=== PATIENT | male | born 1985 | race Two or more races ===

== ENCOUNTER 2016-08-14 20:14 | Emergency (ER) | payer MEDICAID ==
[~2016-08-14] VITALS: Ht 182.9 cm; Wt 79.4 kg
[~2016-08-14 20:14] MED LIST: ALBUAER3 IN; ALEN70TA2 PO; BUDE80AE3 IN; DIPH25CA39 IM; ENO40SY SC; FLUT500M2 IN; FURO20TA3 PO; HYDR200T PO; HYDR2TAB27 PO; IPRA0.035; LIS5T PO; METO25TA5 PO; THEO300T9 PO; TIOTCAP; WARF7.5T PO
[2016-08-14 20:43] VITALS: BP 130/89
== END 2016-08-15 01:13 | disposition left against medical advice (07) ==
LOC: ER 20:22
DX: R06.02 Shortness of breath (principal); Z53.21 Procedure and treatment not carried out due to patient leaving prior to being seen by health care provider

== ENCOUNTER 2016-08-15 07:05 | Emergency (ER) | payer MEDICAID ==
[~2016-08-15] VITALS: Ht 182.9 cm; Wt 79.4 kg
[2016-08-15 07:19] VITALS: BP 101/77
[2016-08-15 08:19] LABS: Magnesium 2.4 mg/dL (1.6-2.6)
[2016-08-15 08:20] LABS: Basophils # (auto) 0 uL; Basophils % (auto) 0.3 % (0.0-2.0); DEFINITIVE VIEW TRANSMISSION; Eosinophils # (auto) 0.3 uL; Eosinophils % (auto) 3.5 % (0.0-7.0); Hematocrit 42.1 % (41.0-53.0); Lymphocytes # (auto) 1.3 uL; Lymphocytes % (auto) 13.7 % (10.0-50.0); Mean Corpuscular Hemoglobin 18.5 pg (28.0-32.0); Mean Corpuscular Hgb Conc. 30.8 g/dL (32.0-36.0); Mean Platelet Volume 9.5 fL (7.4-10.4); Monocytes # (auto) 0.9 uL; Monocytes % (auto) 9.3 % (0.0-12.0); Neutrophils % (auto) 73.2 % (37.0-80.0); Platelet Count (auto) 208 10^3/uL (140-450); SUSPECT VIEW TRANSMISSION; White Blood Cell 9.6 10^3/uL (4.4-10.8)
[2016-08-15 09:57] LABS: Microcytosis Marked; Ovalocytes MODERATE
[2016-08-15 11:55] LABS: Tear Drop Cells FEW
[2016-08-15 11:56] LABS: Hypochromia Moderate; Platelet Estimate Adequate; Schistocytes FEW
[2016-08-15 11:57] LABS: Anisocytosis Moderate
== END 2016-08-15 15:27 | disposition left against medical advice (07) ==
LOC: ER 07:05
DX: R06.02 Shortness of breath (principal); R31.9 Hematuria, unspecified; Z53.21 Procedure and treatment not carried out due to patient leaving prior to being seen by health care provider
CPT/HCPCS: 36415; 83735; 84484; 85025

== ENCOUNTER → 2016-08-25 | Emergency (ER) | payer MEDICAID ==
[~2016-08-25] MED LIST changes: -ENO40SY SC; -IPRA0.035; -LIS5T PO; +THEO300T5 PO; -THEO300T9 PO; -TIOTCAP; +ZOLP10TA PO
== END | disposition left against medical advice (07) ==
LOC: ER 23:57
DX: R31.9 Hematuria, unspecified (principal); Z53.21 Procedure and treatment not carried out due to patient leaving prior to being seen by health care provider

== ENCOUNTER 2016-08-28 12:42 | Emergency (ER) | payer MEDICAID ==
[~2016-08-28] VITALS: Ht 182.9 cm; Wt 81.6 kg
[~2016-08-28 12:42] MED LIST changes: -THEO300T5 PO; -ZOLP10TA PO
[2016-08-28 13:54] LABS: Albumin 3.9 g/dL (3.4-5.0); Bilirubin, Total 0.6 mg/dL (0.2-1.0); Potassium 4.4 mmol/L (3.5-5.1); Total Protein 7.2 g/dL (6.4-8.2)
[2016-08-28 13:57] LABS: Basophils # (auto) 0 uL; Basophils % (auto) 0.5 % (0.0-2.0); DEFINITIVE VIEW TRANSMISSION; Eosinophils # (auto) 0.1 uL; Eosinophils % (auto) 1.8 % (0.0-7.0); Hematocrit 41.4 % (41.0-53.0); Lymphocytes # (auto) 0.7 uL; Lymphocytes % (auto) 9.9 % (10.0-50.0); Mean Corpuscular Hemoglobin 18.7 pg (28.0-32.0); Mean Corpuscular Hgb Conc. 31.5 g/dL (32.0-36.0); Mean Corpuscular Volume 59.4 fL (80.0-100.0); Mean Platelet Volume 9.1 fL (7.4-10.4); Monocytes # (auto) 0.3 uL; Monocytes % (auto) 3.4 % (0.0-12.0); Neutrophils # (auto) 6.2 uL; Neutrophils % (auto) 84.4 % (37.0-80.0); Platelet Count (auto) 172 10^3/uL (140-450); SUSPECT VIEW TRANSMISSION; White Blood Cell 7.3 10^3/uL (4.4-10.8)
[2016-08-28 13:58] LABS: Red Cell Distribution Width 20.7 % (11.6-16.0)
[2016-08-28 14:18] LABS: Urine Bilirubin Negative (Negative); Urine Blood 3+ /uL (Negative); Urine Color Red (Yellow); Urine Glucose Normal (Normal); Urine Ketone Negative (Negative); Urine Mucus FEW (None Seen); Urine Nitrite Negative (Negative); Urine RBC 3472 /hpf (0 - 3); Urine Urobilinogen Normal (Negative)
[2016-08-28 14:25] LABS: Microcytosis Marked
[2016-08-28 14:26] LABS: Ovalocytes MODERATE
[2016-08-28 14:27] LABS: Tear Drop Cells FEW
[2016-08-28 14:28] LABS: Anisocytosis Moderate
[2016-08-28 14:30] LABS: Hypochromia Moderate; Platelet Estimate Adequate
[2016-08-28 15:47] VITALS: BP 121/91
[2016-08-28] MEDS ORDERED: ALBUTEROL SULF 2.5 MG/0.5ML(0.5%) NEB SOLN HHN STA (16:44)
[2016-08-28] MEDS ORDERED: IPRATROPIUM BROM 0.5 MG/2.5ML INH SOL NEB PRN (16:45)
[2016-08-30] MEDS ORDERED: THEO300T5 PO (13:55)
[2016-08-30] MEDS ORDERED: ZOLP10TA PO (13:55)
== END 2016-08-28 17:35 | disposition home or self-care (01) ==
LOC: ER 12:42
DX: N20.0 Calculus of kidney (principal); N39.0 Urinary tract infection, site not specified; M32.9 Systemic lupus erythematosus, unspecified; J45.909 Unspecified asthma, uncomplicated; F12.10 Cannabis abuse, uncomplicated; J44.9 Chronic obstructive pulmonary disease, unspecified; E11.22 Type 2 diabetes mellitus with diabetic chronic kidney disease; K21.9 Gastro-esophageal reflux disease without esophagitis; I13.0 Hypertensive heart and chronic kidney disease with heart failure and stage 1 through stage 4 chronic kidney disease, or unspecified chronic kidney disease; I50.9 Heart failure, unspecified; N18.9 Chronic kidney disease, unspecified; E07.9 Disorder of thyroid, unspecified; Z95.1 Presence of aortocoronary bypass graft; Z87.891 Personal history of nicotine dependence
CPT/HCPCS: 36415; 71020; 74176; 80053; 81001; 85025; 94640

== ENCOUNTER 2016-09-10 16:46 | Emergency (ER) | payer MEDICAID ==
[~2016-09-10] VITALS: Ht 182.9 cm; Wt 77.1 kg
[~2016-09-10 16:46] MED LIST changes: +ALBU0.084; +HYDR200T36; +HYDR2TAB2; +LORA-154; +Prednisone PO; +THEO300T5 PO; +ZOLP10TA PO
[2016-09-10 17:10] VITALS: BP 137/99
[2016-09-10] MEDS ORDERED: ALBUTEROL SULF 2.5 MG/0.5ML(0.5%) NEB SOLN HHN STA (17:10)
[2016-09-10] MEDS ORDERED: IPRATROPIUM BROM 0.5 MG/2.5ML INH SOL NEB ONE (17:15)
[2016-09-10] MEDS ORDERED: methylPREDNISolone SOD SUCC 125 MG/2 ML VL IV ONE (17:15)
[2016-09-10 17:35] LABS: Basophils # (auto) 0 uL; Basophils % (auto) 0.2 % (0.0-2.0); DEFINITIVE VIEW TRANSMISSION; Eosinophils # (auto) 0.3 uL; Eosinophils % (auto) 2.1 % (0.0-7.0); Hematocrit 42.8 % (41.0-53.0); Hemoglobin 12.9 g/dL (13.5-17.5); Lymphocytes # (auto) 1.1 uL; Lymphocytes % (auto) 8.4 % (10.0-50.0); Mean Corpuscular Hgb Conc. 30.2 g/dL (32.0-36.0); Mean Corpuscular Volume 59.6 fL (80.0-100.0); Mean Platelet Volume 8.8 fL (7.4-10.4); Monocytes # (auto) 0.6 uL; Monocytes % (auto) 4.9 % (0.0-12.0); Neutrophils # (auto) 10.5 uL; Neutrophils % (auto) 84.4 % (37.0-80.0); Platelet Count (auto) 202 10^3/uL (140-450); White Blood Cell 12.5 10^3/uL (4.4-10.8)
[2016-09-10 18:03] LABS: Albumin 3.8 g/dL (3.4-5.0); Bilirubin, Total 0.4 mg/dL (0.2-1.0); Calcium 8.8 mg/dL (8.5-10.1); Potassium 4.5 mmol/L (3.5-5.1); Total Protein 7.2 g/dL (6.4-8.2)
[2016-09-10 19:11] LABS: Anisocytosis Marked; Hypochromia Marked; Microcytosis Marked; Platelet Estimate Adequate; Tear Drop Cells FEW
[2016-09-10 19:12] LABS: Burr Cells FEW; Hypersegmented Neutrophils Present; Ovalocytes FEW
== END 2016-09-10 20:05 | disposition left against medical advice (07) ==
LOC: ER 16:51
DX: J45.909 Unspecified asthma, uncomplicated (principal); Z53.21 Procedure and treatment not carried out due to patient leaving prior to being seen by health care provider
CPT/HCPCS: 36415; 71020; 80053; 85025; 94644

== ENCOUNTER 2016-10-13 19:16 | Emergency (ER) | payer MEDICAID ==
[~2016-10-13] VITALS: Ht 182.9 cm; Wt 81.6 kg
[2016-10-13 19:20] VITALS: BP 127/84
[2016-10-13] MEDS ORDERED: IPRATROPIUM BROM 0.5 MG/2.5ML INH SOL NEB ONE (19:45)
[2016-10-13] MEDS ORDERED: ALBUTEROL SULF 2.5 MG/0.5ML(0.5%) NEB SOLN NEB ONE (19:45)
== END 2016-10-13 23:28 | disposition left against medical advice (07) ==
LOC: ER 19:34
DX: J45.909 Unspecified asthma, uncomplicated (principal); Z53.21 Procedure and treatment not carried out due to patient leaving prior to being seen by health care provider
CPT/HCPCS: 71010; 94640

== ENCOUNTER 2017-04-04 10:18 | Inpatient (IN) | payer MEDICAID ==
[~2017-04-04] VITALS: Ht 182.9 cm; Wt 78.3 kg
[~2017-04-04 10:18] MED LIST changes: -HYDR2TAB27 PO; +HYDR2TAB29 PO
[2017-04-04] MEDS ORDERED: IPRATROPIUM BROM 0.5 MG/2.5ML INH SOL NEB ONE ×3 (10:30→15:45)
[2017-04-04] MEDS ORDERED: ALBUTEROL SULF 2.5 MG/0.5ML(0.5%) NEB SOLN NEB ONE ×3 (10:30→15:45)
[2017-04-04] MEDS ORDERED: SODIUM CHLORIDE 0.9% 1,000 ML IVB ONE (13:26)
[2017-04-04] MEDS ORDERED: MAGNESIUM SULFATE 1GM/100ML 100 ML IV ONE (14:15)
[2017-04-04 14:27] LABS: Basophils # (auto) 0.1 uL; Hemoglobin 12.7 g/dL (13.5-17.5); Lymphocytes # (auto) 1.1 uL; Neutrophils # (auto) 10.7 uL; White Blood Cell 13.5 10^3/uL (4.4-10.8)
[2017-04-04 14:28] LABS: Basophils % (auto) 0.5 % (0.0-2.0); Eosinophils # (auto) 0.7 uL; Eosinophils % (auto) 4.9 % (0.0-7.0); Hematocrit 40.3 % (41.0-53.0); Lymphocytes % (auto) 7.9 % (10.0-50.0); Mean Corpuscular Hgb Conc. 31.6 g/dL (32.0-36.0); Mean Platelet Volume 9.3 fL (6.9-10.8); Monocytes % (auto) 7.4 % (0.0-12.0); Neutrophils % (auto) 79.3 % (37.0-80.0); Platelet Count (auto) 242 10^3/uL (140-450)
[2017-04-04 14:29] LABS: Red Cell Distribution Width 21.2 % (11.8-14.3)
[2017-04-04] MEDS ORDERED: diphenhdrAMINE HCL 50 MG/1 ML VL IV ONE (14:30)
[2017-04-04 14:46] LABS: Albumin 4.1 g/dL (3.4-5.0); Anisocytosis Moderate; BUN/Creatinine Ratio 20.2; Bilirubin, Total 0.5 mg/dL (0.2-1.0); Calcium 8.5 mg/dL (8.5-10.1); Hypochromia Moderate; Magnesium 2.3 mg/dL (1.6-2.6); Microcytosis Moderate; Ovalocytes FEW; Platelet Estimate Adequate; Potassium 3.3 mmol/L (3.5-5.1); Tear Drop Cells FEW; Total Protein 7.1 g/dL (6.4-8.2)
[2017-04-04] MEDS ORDERED: POTASSIUM CHL 20 Meq TABLET PO ONE (16:15)
[2017-04-04] MEDS ORDERED: SODIUM CHLORIDE 0.9% 1,000 ML IV ONE (16:43)
[2017-04-04] MEDS ORDERED: DEXAMETHASONE SOD PHOS 4 MG/1ML SDV INJ IV ONE (16:45)
[2017-04-04] MEDS ORDERED: TEMAZEPAM 15 MG CAP PO PRN (21:15)
[2017-04-04] MEDS ORDERED: ACETAMINOPHEN 325 MG TAB PO PRN (21:15)
[2017-04-04] MEDS ORDERED: ONDANSETRON HCL 4 MG/2 ML VIAL IV PRN (21:15)
[2017-04-04] MEDS ORDERED: cefTRIAXone 1GM/50ML D5W 50 ML IV ONE (21:15)
[2017-04-04] MEDS ORDERED: NITROGLYCERIN 0.4 MG SL TAB SL PRN (21:15)
[2017-04-04] MEDS ORDERED: HYDROcodone-ACET 5/325MG TAB PO PRN (21:15)
[2017-04-04] MEDS ORDERED: MORPHINE SULFATE 10 MG/ML INJ 1ML SDV IV PRN (21:15)
[2017-04-04 22:00] VITALS: BP 120/75
[2017-04-04] MEDS: HYDROmorphone HCL 2 MG TAB PO PRN (22:59)
[2017-04-04 23:00] VITALS: BP 120/75
[2017-04-04] MEDS: METOPROLOL TARTRATE 25 MG TAB PO SCH (23:00)
[2017-04-04] MEDS: FAMOTIDINE 20 MG TAB PO SCH (23:00)
[2017-04-04] MEDS: methylPREDNISolone SOD SUCC 125 MG/2 ML VL IV SCH (23:01)
[2017-04-04] MEDS: SODIUM CHLORIDE 0.9% 1,000 ML IV SCH (23:02)
[2017-04-04 23:21] LABS: Partial Thromboplastin Time 25.2 sec (22.64-33.71); Prothrombin Time 10.9 sec (9.37-12.3)
[2017-04-05] MEDS: diphenhdrAMINE HCL 25 MG CAP PO PRN ×3 (03:05→19:32)
[2017-04-05 05:00] VITALS: BP 127/76
[2017-04-05] MEDS: HYDROmorphone HCL 2 MG TAB PO PRN ×5 (05:25→23:40)
[2017-04-05 06:18] LABS: Basophils # (auto) 0 uL; Eosinophils # (auto) 0 uL; Eosinophils % (auto) 0.4 % (0.0-7.0); Lymphocytes # (auto) 0.5 uL; Monocytes # (auto) 0.1 uL
[2017-04-05 06:20] LABS: Hematocrit 36.7 % (41.0-53.0); Hemoglobin 11.2 g/dL (13.5-17.5); Lymphocytes % (auto) 6.2 % (10.0-50.0); Mean Corpuscular Hemoglobin 18.6 pg (28.0-32.0); Mean Corpuscular Hgb Conc. 30.6 g/dL (32.0-36.0); Mean Corpuscular Volume 60.9 fL (80.0-100.0); Mean Platelet Volume 9.2 fL (6.9-10.8); Monocytes % (auto) 1.1 % (0.0-12.0); Neutrophils # (auto) 7.7 uL; Neutrophils % (auto) 92.3 % (37.0-80.0); Nucleated Red Blood Cells % 0.2 %; Platelet Count (auto) 218 10^3/uL (140-450); White Blood Cell 8.4 10^3/uL (4.4-10.8)
[2017-04-05 06:36] LABS: Potassium 4.5 mmol/L (3.5-5.1)
[2017-04-05 06:40] LABS: Red Cell Distribution Width 21.2 % (11.8-14.3)
[2017-04-05 06:41] LABS: Albumin 3.6 g/dL (3.4-5.0); BUN/Creatinine Ratio 18.3; Calcium 8.5 mg/dL (8.5-10.1)
[2017-04-05 06:43] LABS: Bilirubin, Total 0.4 mg/dL (0.2-1.0)
[2017-04-05 09:00] VITALS: BP 134/64
[2017-04-05] MEDS: methylPREDNISolone SOD SUCC 125 MG/2 ML VL IV SCH ×2 (09:36→21:07)
[2017-04-05] MEDS: ENOXAPARIN SOD 40 MG/0.4 ML SYRINGE SC SCH (09:36)
[2017-04-05] MEDS: METOPROLOL TARTRATE 25 MG TAB PO SCH ×2 (09:37→21:07)
[2017-04-05] MEDS: HYDROXYCHLOROQUINE SULFATE 200 MG TAB PO SCH (09:37)
[2017-04-05] MEDS: FUROSEMIDE 20 MG TAB PO SCH (09:37)
[2017-04-05] MEDS: FAMOTIDINE 20 MG TAB PO SCH ×2 (09:38→21:06)
[2017-04-05 11:47] LABS: Platelet Estimate Adequate
[2017-04-05 11:50] LABS: Anisocytosis Slight; Burr Cells FEW; Hypochromia Marked; Microcytosis Marked; Ovalocytes FEW; Schistocytes FEW; Tear Drop Cells FEW
[2017-04-05 13:00] VITALS: BP 132/78
[2017-04-05] MEDS: ALBUTEROL SULF 2.5 MG/0.5ML(0.5%) NEB SOLN NEB PRN (14:38)
[2017-04-05] MEDS: IPRATROPIUM BROM 0.5 MG/2.5ML INH SOL NEB PRN (14:38)
[2017-04-05 17:00] VITALS: BP 136/67
[2017-04-05] MEDS ORDERED: WARFARIN SODIUM 2.5 MG TAB PO ONE (17:00)
[2017-04-05] MEDS: SODIUM CHLORIDE 0.9% 1,000 ML IV SCH (17:01)
[2017-04-05] MEDS: cefTRIAXone 1GM/50ML D5W 50 ML IV SCH (21:06)
[2017-04-05 22:00] VITALS: BP 128/74
[2017-04-05] MEDS ORDERED: ZOLPIDEM TARTRATE 5 MG TAB PO ONE (23:00)
[2017-04-06] MEDS: HYDROmorphone HCL 2 MG TAB PO PRN ×6 (03:41→23:46)
[2017-04-06] MEDS: diphenhdrAMINE HCL 25 MG CAP PO PRN ×3 (03:41→22:02)
[2017-04-06] MEDS: SODIUM CHLORIDE 0.9% 1,000 ML IV SCH (04:50)
[2017-04-06 06:18] VITALS: BP 117/76
[2017-04-06] MEDS: IPRATROPIUM BROM 0.5 MG/2.5ML INH SOL NEB PRN ×2 (07:43→19:40)
[2017-04-06] MEDS: ALBUTEROL SULF 2.5 MG/0.5ML(0.5%) NEB SOLN NEB PRN (07:43)
[2017-04-06 08:07] LABS: INR 1.05 (0.9-1.15); Partial Thromboplastin Time 23.9 sec (22.64-33.71); Prothrombin Time 11.4 sec (9.37-12.3)
[2017-04-06 09:00] VITALS: BP 120/73
[2017-04-06] MEDS: METOPROLOL TARTRATE 25 MG TAB PO SCH (09:24)
[2017-04-06] MEDS: HYDROXYCHLOROQUINE SULFATE 200 MG TAB PO SCH (09:24)
[2017-04-06] MEDS: FAMOTIDINE 20 MG TAB PO SCH (09:25)
[2017-04-06] MEDS: FUROSEMIDE 20 MG TAB PO SCH (09:25)
[2017-04-06] MEDS: ENOXAPARIN SOD 40 MG/0.4 ML SYRINGE SC SCH (09:25)
[2017-04-06] MEDS: methylPREDNISolone SOD SUCC 125 MG/2 ML VL IV SCH ×2 (09:25→22:01)
[2017-04-06 10:14] LABS: Hematocrit 35.3 % (41.0-53.0); Mean Corpuscular Hemoglobin 18.9 pg (28.0-32.0); Mean Corpuscular Hgb Conc. 31.3 g/dL (32.0-36.0); Mean Corpuscular Volume 60.3 fL (80.0-100.0); Mean Platelet Volume 9.3 fL (6.9-10.8); Platelet Count (auto) 242 10^3/uL (140-450); White Blood Cell 17.8 10^3/uL (4.4-10.8)
[2017-04-06 10:15] LABS: Red Cell Distribution Width 21.5 % (11.8-14.3)
[2017-04-06 10:16] LABS: Metamyelocytes % 0; Myelocytes % 0; Promyelocytes % 0; Reactive Lymphocytes 0
[2017-04-06] MEDS: ALBUTEROL SULF 2.5 MG/0.5ML(0.5%) NEB SOLN NEB SCH ×2 (12:07→19:40)
[2017-04-06] MEDS: BUDESONIDE (INHALATION) 0.5 MG/2 ML NEB NEB SCH ×2 (12:08→19:40)
[2017-04-06 13:00] VITALS: BP 135/85
[2017-04-06 13:40] LABS: Burr Cells FEW; Platelet Estimate Adequate
[2017-04-06 13:41] LABS: Ovalocytes FEW; Tear Drop Cells FEW
[2017-04-06 13:44] LABS: Anisocytosis Slight; Hypochromia Marked; Microcytosis Marked
[2017-04-06 13:45] LABS: Schistocytes FEW
[2017-04-06 17:00] VITALS: BP 132/70
[2017-04-06] MEDS ORDERED: WARFARIN SODIUM 10 MG TAB PO ONE (17:00)
[2017-04-06] MEDS: PANTOPRAZOLE 40 MG TAB PO SCH (17:29)
[2017-04-06 21:46] VITALS: BP 120/71
[2017-04-06] MEDS: MYCOPHENOLATE 500 MG TAB PO SCH (22:00)
[2017-04-06] MEDS: cefTRIAXone 1GM/50ML D5W 50 ML IV SCH (22:00)
[2017-04-06] MEDS: CALCIUM CARB 500 MG CHEW TAB PO SCH (22:01)
[2017-04-07] MEDS ORDERED: ZOLPIDEM TARTRATE 5 MG TAB PO ONE (00:15)
[2017-04-07] MEDS: HYDROmorphone HCL 2 MG TAB PO PRN ×4 (03:46→16:54)
[2017-04-07 05:13] VITALS: BP 139/60
[2017-04-07] MEDS: ALBUTEROL SULF 2.5 MG/0.5ML(0.5%) NEB SOLN NEB SCH ×3 (06:59→13:24)
[2017-04-07] MEDS ORDERED: ALENDRONATE SODIUM 10 MG TAB PO SCH (08:00)
[2017-04-07] MEDS ORDERED: PNEUMOCOCCAL VACC POLYS 25 MCG/0.5 ML VIAL IM ONE (09:00)
[2017-04-07] MEDS ORDERED: INFLUENZA QUAD 2017-2018 0.5 ML SYRG IM ONE (09:00)
[2017-04-07] MEDS: IPRATROPIUM BROM 0.5 MG/2.5ML INH SOL NEB PRN (09:24)
[2017-04-07] MEDS: ALBUTEROL SULF 2.5 MG/0.5ML(0.5%) NEB SOLN NEB PRN (09:27)
[2017-04-07] MEDS: BUDESONIDE (INHALATION) 0.5 MG/2 ML NEB NEB SCH (09:27)
[2017-04-07 09:28] VITALS: BP 137/66
[2017-04-07 09:56] LABS: Basophils # (auto) 0 uL; Basophils % (auto) 0.1 % (0.0-2.0); Eosinophils # (auto) 0 uL; Eosinophils % (auto) 0.1 % (0.0-7.0); Hemoglobin 11.5 g/dL (13.5-17.5); Nucleated Red Blood Cells % 0.1 %
[2017-04-07 09:58] LABS: Lymphocytes # (auto) 0.9 uL; Lymphocytes % (auto) 6.8 % (10.0-50.0); Mean Corpuscular Hemoglobin 18.4 pg (28.0-32.0); Mean Corpuscular Hgb Conc. 30.9 g/dL (32.0-36.0); Mean Corpuscular Volume 59.5 fL (80.0-100.0); Monocytes # (auto) 1.1 uL; Neutrophils # (auto) 10.6 uL; Platelet Count (auto) 294 10^3/uL (140-450); White Blood Cell 12.6 10^3/uL (4.4-10.8)
[2017-04-07] MEDS ORDERED: CHOLECALCIFEROL (VITD3) 1,000 UNIT TAB PO SCH (10:00)
[2017-04-07 10:08] LABS: Red Cell Distribution Width 21.5 % (11.8-14.3)
[2017-04-07 10:12] LABS: Albumin 3.8 g/dL (3.4-5.0); Calcium 8.7 mg/dL (8.5-10.1); Potassium 3.9 mmol/L (3.5-5.1)
[2017-04-07 10:14] LABS: BUN/Creatinine Ratio 25.4; INR 1.17 (0.9-1.15); Prothrombin Time 12.8 sec (9.37-12.3)
[2017-04-07 10:18] LABS: Bilirubin, Total 0.5 mg/dL (0.2-1.0); Total Protein 6.4 g/dL (6.4-8.2)
[2017-04-07] MEDS: ENOXAPARIN SOD 40 MG/0.4 ML SYRINGE SC SCH (10:35)
[2017-04-07] MEDS: CALCIUM CARB 500 MG CHEW TAB PO SCH (10:36)
[2017-04-07] MEDS: PANTOPRAZOLE 40 MG TAB PO SCH (10:36)
[2017-04-07] MEDS: FUROSEMIDE 20 MG TAB PO SCH (10:36)
[2017-04-07] MEDS: methylPREDNISolone SOD SUCC 125 MG/2 ML VL IV SCH (10:36)
[2017-04-07] MEDS: HYDROXYCHLOROQUINE SULFATE 200 MG TAB PO SCH (10:37)
[2017-04-07] MEDS: MYCOPHENOLATE 500 MG TAB PO SCH (10:37)
[2017-04-07] MEDS: SODIUM CHLORIDE 0.9% 1,000 ML IV SCH (10:45)
[2017-04-07] MEDS: diphenhdrAMINE HCL 25 MG CAP PO PRN (10:46)
[2017-04-07 10:52] LABS: Platelet Estimate Adequate
[2017-04-07 10:54] LABS: Schistocytes FEW; Tear Drop Cells FEW
[2017-04-07 10:55] LABS: Anisocytosis Slight; Burr Cells FEW; Hypochromia Marked; Microcytosis Marked; Ovalocytes MODERATE
[2017-04-07 11:43] VITALS: BP 130/77
[2017-04-07 17:00] VITALS: BP 130/85
[2017-04-07] MEDS ORDERED: WARFARIN SODIUM 10 MG TAB PO ONE (17:00)
[2017-04-07 17:47] VITALS: BP 122/68
[2017-04-08 08:06] LABS: Thyroid Peroxidase (TPO) Ab 12 IU/mL (0-34)
[2017-04-08 16:07] LABS: Sjogren's Anti-SS-A Antibody <0.2 AI (0.0-0.9)
[2017-04-09 11:07] LABS: Antiproteinase 3 (PR-3) Ab <3.5 U/mL (0.0-3.5)
[2017-04-09 14:07] LABS: Anti-intermyofibrillar Ab Negative (Neg:<1:20); Anti-sarcolemma Antibody Negative (Neg:<1:20)
== END 2017-04-07 18:30 | disposition home or self-care (01) | DRG 133 ==
LOC: ER 10:18 → TELE 10:19 → TELE-WESTW 22:11
PROVIDERS: ADMIT Internal Medicine; ATTEND Internal Medicine Pulmonary Disease
DX: J96.20 Acute and chronic respiratory failure, unspecified whether with hypoxia or hypercapnia (principal); C95.90 Leukemia, unspecified not having achieved remission; E87.5 Hyperkalemia; J45.901 Unspecified asthma with (acute) exacerbation; J44.9 Chronic obstructive pulmonary disease, unspecified; K21.9 Gastro-esophageal reflux disease without esophagitis; F17.210 Nicotine dependence, cigarettes, uncomplicated; E87.6 Hypokalemia; F12.90 Cannabis use, unspecified, uncomplicated; F32.9 Major depressive disorder, single episode, unspecified; F41.9 Anxiety disorder, unspecified; T38.0X5A Adverse effect of glucocorticoids and synthetic analogues, initial encounter; M81.0 Age-related osteoporosis without current pathological fracture; I10 Essential (primary) hypertension; I25.10 Atherosclerotic heart disease of native coronary artery without angina pectoris; Z86.711 Personal history of pulmonary embolism; Z79.01 Long term (current) use of anticoagulants; Z87.01 Personal history of pneumonia (recurrent); Y92.89 Other specified places as the place of occurrence of the external cause; Z79.52 Long term (current) use of systemic steroids; Z82.49 Family history of ischemic heart disease and other diseases of the circulatory system; Z82.5 Family history of asthma and other chronic lower respiratory diseases; Z83.3 Family history of diabetes mellitus; Z95.5 Presence of coronary angioplasty implant and graft; Z88.6 Allergy status to analgesic agent; Z88.1 Allergy status to other antibiotic agents
CPT/HCPCS: 36415; 71020; 80053; 83520; 83735; 84443; 85007; 85025; 85027; 85610; 85730; 86160; 86225; 86235; 86256; 87040; 87081; 93005; 94010; 94640; 96361; 96365; 96375; J0696; J1100; J7517

== ENCOUNTER 2017-04-23 09:40 | Emergency (ER) | payer MEDICAID ==
[~2017-04-23] VITALS: Ht 182.9 cm; Wt 79.8 kg
[~2017-04-23 09:40] MED LIST changes: +CETI1TAB36 PO; -FLUT500M2 IN; -HYDR200T36; -HYDR2TAB2; -LORA-154; -METO25TA5 PO; +MYCO250C PO; -THEO300T5 PO; -WARF7.5T PO
[2017-04-23 09:46] VITALS: BP 118/72
[2017-04-23 10:33] LABS: Hemoglobin 12.3 g/dL (13.5-17.5); Lymphocytes # (auto) 1.4 uL; Lymphocytes % (auto) 13.5 % (10.0-50.0)
[2017-04-23 10:36] LABS: Basophils # (auto) 0 uL; Basophils % (auto) 0.4 % (0.0-2.0); Eosinophils # (auto) 0.9 uL; Eosinophils % (auto) 8.5 % (0.0-7.0); Hematocrit 39.4 % (41.0-53.0); Mean Corpuscular Hemoglobin 18.8 pg (28.0-32.0); Mean Corpuscular Hgb Conc. 31.3 g/dL (32.0-36.0); Mean Corpuscular Volume 59.9 fL (80.0-100.0); Mean Platelet Volume 9.8 fL (6.9-10.8); Monocytes % (auto) 9.7 % (0.0-12.0); Neutrophils # (auto) 7.3 uL; Neutrophils % (auto) 67.9 % (37.0-80.0); Nucleated Red Blood Cells % 0.1 %; Platelet Count (auto) 178 10^3/uL (140-450); White Blood Cell 10.7 10^3/uL (4.4-10.8)
[2017-04-23 10:45] LABS: Red Cell Distribution Width 20.7 % (11.8-14.3)
[2017-04-23 10:46] LABS: Platelet Estimate Adequate
[2017-04-23 10:47] LABS: Anisocytosis Moderate; Hypochromia Marked; Microcytosis Marked; Ovalocytes FEW; Schistocytes FEW
[2017-04-23 10:49] LABS: Albumin 3.5 g/dL (3.4-5.0); Bilirubin, Total 0.7 mg/dL (0.2-1.0); Calcium 8.8 mg/dL (8.5-10.1); Potassium 3.7 mmol/L (3.5-5.1); Total Protein 6.9 g/dL (6.4-8.2)
== END 2017-04-23 12:21 | disposition left against medical advice (07) ==
LOC: ER 09:40
DX: M79.89 Other specified soft tissue disorders (principal); Z53.21 Procedure and treatment not carried out due to patient leaving prior to being seen by health care provider
CPT/HCPCS: 36415; 80053; 85025; 85379

== ENCOUNTER 2017-04-27 20:16 | Inpatient (IN) | payer MEDICAID ==
[~2017-04-27] VITALS: Ht 182.9 cm; Wt 79.4 kg
[2017-04-27 20:59] LABS: Mean Platelet Volume 8.7 fL (6.9-10.8)
[2017-04-27] MEDS ORDERED: ALBUTEROL SULF 2.5 MG/0.5ML(0.5%) NEB SOLN NEB ONE ×2 (21:00→21:30)
[2017-04-27] MEDS ORDERED: IPRATROPIUM BROM 0.5 MG/2.5ML INH SOL NEB ONE ×2 (21:00→21:30)
[2017-04-27 21:01] LABS: Hematocrit 44.8 % (41.0-53.0); Hemoglobin 14.1 g/dL (13.5-17.5); Mean Corpuscular Hemoglobin 18.7 pg (28.0-32.0); Mean Corpuscular Hgb Conc. 31.5 g/dL (32.0-36.0); Mean Corpuscular Volume 59.4 fL (80.0-100.0); Platelet Count (auto) 236 10^3/uL (140-450)
[2017-04-27 21:05] LABS: Red Cell Distribution Width 20.7 % (11.8-14.3)
[2017-04-27 21:06] LABS: Metamyelocytes % 0; Myelocytes % 0; Promyelocytes % 0; Reactive Lymphocytes 0
[2017-04-27 21:17] LABS: Albumin 3.6 g/dL (3.4-5.0); Anion Gap 9 (5-15); Aspartate Aminotransferase 23 U/L (15-37); BUN/Creatinine Ratio 17.4; Blood Urea Nitrogen 16 mg/dL (7-18); Calcium 8.4 mg/dL (8.5-10.1); Carbon Dioxide 24 mmol/L (21-32); Chloride 101 mmol/L (98-107); GFR African American 124 mL/min; GFR Non-African American 103 mL/min; Glucose 128 mg/dL (74-106); Potassium 3.7 mmol/L (3.5-5.1); Sodium 134 mmol/L (136-145)
[2017-04-27 21:23] LABS: Alkaline Phosphatase 77 U/L (45-117); Bilirubin, Total 0.7 mg/dL (0.2-1.0)
[2017-04-27] MEDS ORDERED: diphenhdrAMINE HCL 50 MG/1 ML VL IV ONE (21:30)
[2017-04-27] MEDS ORDERED: methylPREDNISolone SOD SUCC 125 MG/2 ML VL IV ONE (21:30)
[2017-04-27] MEDS ORDERED: EPINEPHrine HCL 1 MG/1 ML AMP SC ONE (22:45)
[2017-04-27] MEDS ORDERED: HYDROmorphone HCL 2 MG/ML VL IV ONE (22:45)
[2017-04-27] MEDS ORDERED: SODIUM CHLORIDE 0.9% 1,000 ML IV ONE (22:45)
[2017-04-27 23:27] LABS: Anisocytosis Slight; Hypochromia Marked; Microcytosis Marked; Platelet Estimate Adequate; Poikilocytosis Moderate
[2017-04-28] MEDS ORDERED: HYDROmorphone HCL 2 MG TAB PO ONE (01:45)
[2017-04-28] MEDS ORDERED: ALBUTEROL SULF 2.5 MG/0.5ML(0.5%) NEB SOLN NEB ONE (01:45)
[2017-04-28] MEDS ORDERED: IPRATROPIUM BROM 0.5 MG/2.5ML INH SOL NEB ONE (01:45)
[2017-04-28] MEDS ORDERED: FUROSEMIDE 20 MG/2 ML VIAL IV ONE (05:30)
[2017-04-28] MEDS ORDERED: ALBUTEROL SULF 2.5 MG/0.5ML(0.5%) NEB SOLN NEB PRN (07:15)
[2017-04-28] MEDS ORDERED: HYDROmorphone HCL 2 MG TAB PO PRN (07:15)
[2017-04-28] MEDS ORDERED: HYDROmorphone HCL 2 MG/ML VL IV PRN (07:15)
[2017-04-28] MEDS ORDERED: IPRATROPIUM BROM 0.5 MG/2.5ML INH SOL NEB PRN (07:15)
[2017-04-28] MEDS ORDERED: NITROGLYCERIN 0.4 MG SL TAB SL PRN (07:15)
[2017-04-28] MEDS ORDERED: ENOXAPARIN SOD 100 MG/1 ML SYRINGE SC ONE (07:15)
[2017-04-28] MEDS ORDERED: ONDANSETRON HCL 4 MG/2 ML VIAL IV PRN (07:15)
[2017-04-28] MEDS ORDERED: TEMAZEPAM 15 MG CAP PO PRN (07:15)
[2017-04-28] MEDS ORDERED: IOHEXOL 350 MG/ML 100ML IJ ONE ×2 (07:19→10:46)
[2017-04-28 07:30] LABS: Urine Bilirubin Negative (Negative); Urine Blood Negative /uL (Negative); Urine Color Yellow (Yellow); Urine Glucose 4+ mg/dL (Normal); Urine Ketone Negative (Negative); Urine Nitrite Negative (Negative); Urine RBC <1 /hpf (0 - 3); Urine Urobilinogen Normal (Negative); Urine pH 5.5 (5.0-8.0)
[2017-04-28 08:29] LABS: Albumin 3.4 g/dL (3.4-5.0); BUN/Creatinine Ratio 22.4; Calcium 8.6 mg/dL (8.5-10.1); Potassium 4.4 mmol/L (3.5-5.1)
[2017-04-28 08:40] LABS: Bilirubin, Total 0.3 mg/dL (0.2-1.0)
[2017-04-28 08:41] LABS: Total Protein 6.9 g/dL (6.4-8.2)
[2017-04-28 08:51] LABS: B-Type Natriuretic Peptide < 5.0 pg/mL (0-100); Temperature: 21.9 C (20.0-25.0)
[2017-04-28] MEDS ORDERED: cefTRIAXone 1GM/50ML D5W 50 ML IV SCH (09:00)
[2017-04-28 09:46] LABS: INR 1.06 (0.9-1.15); Partial Thromboplastin Time 27.6 sec (22.64-33.71); Prothrombin Time 11.6 sec (9.37-12.3)
[2017-04-28] MEDS ORDERED: MYCOPHENOLATE 250 MG CAP PO SCH (10:00)
[2017-04-28] MEDS ORDERED: HYDROXYCHLOROQUINE SULFATE 200 MG TAB PO SCH (10:00)
[2017-04-28] MEDS ORDERED: predniSONE 5 MG TAB PO SCH (10:00)
[2017-04-28] MEDS ORDERED: PANTOPRAZOLE 40 MG TAB PO SCH (10:00)
[2017-04-28 10:47] VITALS: BP 116/80
[2017-04-28] MEDS ORDERED: diphenhdrAMINE HCL 50 MG/1 ML VL ONE (11:25)
[2017-04-28] MEDS ORDERED: diphenhdrAMINE HCL 50 MG/1 ML VL IV ONE (11:30)
[2017-04-28] MEDS: HYDROmorphone HCL 2 MG TAB PO PRN ×3 (12:13→20:22)
[2017-04-28] MEDS ORDERED: BUDESONIDE (INHALATION) 0.5 MG/2 ML NEB NEB ONE (12:45)
[2017-04-28] MEDS ORDERED: WARFARIN SODIUM 2.5 MG TAB PO ONE (17:00)
[2017-04-28] MEDS ORDERED: FUROSEMIDE 20 MG TAB PO SCH (18:00)
[2017-04-28 19:09] VITALS: BP 136/96
[2017-04-28] MEDS ORDERED: BUDESONIDE (INHALATION) 0.5 MG/2 ML NEB NEB SCH (22:00)
[2017-05-03] MEDS ORDERED: PROAIR (12:31)
[2017-05-03] MEDS ORDERED: [UNRECOGNIZED DRUG - CODE] PO (12:31)
== END 2017-04-28 22:30 | disposition left against medical advice (07) | DRG 133 ==
LOC: ER 20:16 → EDBD 20:16 → TELE 20:17 → TELE-CENTR 04-28 19:40
PROVIDERS: ADMIT Nurse Practitioner; ATTEND Family Medicine
DX: J96.00 Acute respiratory failure, unspecified whether with hypoxia or hypercapnia (principal); J45.902 Unspecified asthma with status asthmaticus; I50.9 Heart failure, unspecified; J44.1 Chronic obstructive pulmonary disease with (acute) exacerbation; D75.1 Secondary polycythemia; I11.0 Hypertensive heart disease with heart failure; K21.9 Gastro-esophageal reflux disease without esophagitis; I25.10 Atherosclerotic heart disease of native coronary artery without angina pectoris; F41.9 Anxiety disorder, unspecified; F12.90 Cannabis use, unspecified, uncomplicated; Z86.718 Personal history of other venous thrombosis and embolism; Z82.49 Family history of ischemic heart disease and other diseases of the circulatory system; Z82.5 Family history of asthma and other chronic lower respiratory diseases; Z83.3 Family history of diabetes mellitus; Z23 Encounter for immunization
CPT/HCPCS: 36415; 36569; 71010; 71275; 80053; 80307; 81001; 83735; 83880; 84484; 85007; 85027; 85379; 85610; 85730; 87081; 93005; 94640; 96361; 96365; 96375; J0171; J0696; J7517

== ENCOUNTER 2017-05-01 16:38 | Emergency (ER) | payer MEDICAID ==
[~2017-05-01] VITALS: Ht 182.9 cm; Wt 80.7 kg
[2017-05-01 18:57] VITALS: BP 120/70
[2017-05-03] MEDS ORDERED: PROAIR (12:31)
[2017-05-03] MEDS ORDERED: [UNRECOGNIZED DRUG - CODE] PO (12:31)
== END 2017-05-02 04:24 | disposition left against medical advice (07) ==
LOC: ER 16:44
DX: J45.909 Unspecified asthma, uncomplicated (principal); R06.02 Shortness of breath; Z53.21 Procedure and treatment not carried out due to patient leaving prior to being seen by health care provider

== ENCOUNTER 2017-05-19 09:35 | Inpatient (IN) | payer MEDICAID ==
[~2017-05-19] VITALS: Ht 182.9 cm; Wt 75.5 kg
[2017-05-19] MEDS: SODIUM CHLOR 0.9% PF (SALINE LOCK) 10ML VIAL IV SCH ×2 (06:20→23:00)
[~2017-05-19 09:35] MED LIST changes: -DIPH25CA39 IM; +PROAIR; +[UNRECOGNIZED DRUG - CODE] PO
[2017-05-19] MEDS ORDERED: AMINOPHYLLINE IV ONE (10:45)
[2017-05-19] MEDS ORDERED: TERBUTALINE SULFATE 1 MG/ML 1ML VIAL SC ONE ×2 (10:45)
[2017-05-19] MEDS ORDERED: D5W 5% IV ONE (10:45)
[2017-05-19] MEDS ORDERED: SODIUM CHLORIDE 0.9% 1,000 ML IV ONE (10:45)
[2017-05-19 11:08] LABS: Basophils # (auto) 0.1 uL; Eosinophils # (auto) 0.7 uL; Hemoglobin 12.8 g/dL (13.5-17.5); Monocytes # (auto) 0.8 uL; White Blood Cell 9.6 10^3/uL (4.4-10.8)
[2017-05-19 11:10] LABS: Basophils % (auto) 1.1 % (0.0-2.0); Eosinophils % (auto) 7.5 % (0.0-7.0); Lymphocytes # (auto) 1.5 uL; Lymphocytes % (auto) 15.6 % (10.0-50.0); Mean Corpuscular Hemoglobin 18.9 pg (28.0-32.0); Mean Corpuscular Hgb Conc. 32.1 g/dL (32.0-36.0); Mean Corpuscular Volume 59.1 fL (80.0-100.0); Mean Platelet Volume 9.9 fL (6.9-10.8); Monocytes % (auto) 8.2 % (0.0-12.0); Neutrophils # (auto) 6.5 uL; Neutrophils % (auto) 67.6 % (37.0-80.0); Nucleated Red Blood Cells % 0.1 %; Platelet Count (auto) 270 10^3/uL (140-450)
[2017-05-19 11:19] LABS: Red Cell Distribution Width 21.5 % (11.8-14.3)
[2017-05-19 11:29] LABS: Albumin 3.6 g/dL (3.4-5.0); BUN/Creatinine Ratio 21.9; Bilirubin, Total 0.6 mg/dL (0.2-1.0); Calcium 8.2 mg/dL (8.5-10.1); Magnesium 2.3 mg/dL (1.6-2.6); Potassium 3.7 mmol/L (3.5-5.1); Total Protein 6.9 g/dL (6.4-8.2)
[2017-05-19] MEDS ORDERED: ALBUTEROL SULF 2.5 MG/0.5ML(0.5%) NEB SOLN NEB ONE ×2 (11:45→14:00)
[2017-05-19] MEDS ORDERED: IPRATROPIUM BROM 0.5 MG/2.5ML INH SOL NEB ONE ×2 (11:45→14:00)
[2017-05-19 11:57] LABS: Platelet Estimate Adequate
[2017-05-19 11:59] LABS: Anisocytosis Moderate; Hypochromia Marked; Microcytosis Marked; Ovalocytes MODERATE; Tear Drop Cells FEW
[2017-05-19 12:00] LABS: Schistocytes FEW
[2017-05-19 13:52] LABS: Urine Bilirubin Negative (Negative); Urine Blood 3+ /uL (Negative); Urine Color Red (Yellow); Urine Glucose Normal (Normal); Urine Ketone TRACE (Negative); Urine Mucus FEW (None Seen); Urine Nitrite Negative (Negative); Urine RBC 4118 /hpf (0 - 3); Urine Urobilinogen Normal (Negative)
[2017-05-19] MEDS ORDERED: traMADol HCL 50 MG TAB PO ONE (14:00)
[2017-05-19] MEDS ORDERED: DEXAMETHASONE SOD PHOS 4 MG/1ML SDV INJ IV ONE (14:00)
[2017-05-19] MEDS ORDERED: cefTRIAXone 1GM/10ml IVPUSH 10 ML IV ONE (15:15)
[2017-05-19] MEDS ORDERED: NITROGLYCERIN 0.4 MG SL TAB SL PRN (15:15)
[2017-05-19] MEDS ORDERED: PROMETHAZINE HCL 25 MG/ML 1ML IV PRN (15:15)
[2017-05-19] MEDS ORDERED: diphenhdrAMINE HCL 25 MG CAP PO PRN (15:15)
[2017-05-19] MEDS ORDERED: MORPHINE SULF INJ 2 MG/ML SYRINGE 1ML IV PRN ×3 (15:15)
[2017-05-19] MEDS ORDERED: LACTULOSE 20Gm/30ML SOLN PO PRN (15:15)
[2017-05-19] MEDS ORDERED: TEMAZEPAM 15 MG CAP PO PRN (15:15)
[2017-05-19] MEDS ORDERED: ALBUTEROL SULF 2.5 MG/0.5ML(0.5%) NEB SOLN NEB PRN (15:15)
[2017-05-19] MEDS ORDERED: ENOXAPARIN SOD 40 MG/0.4 ML SYRINGE SC ONE (15:30)
[2017-05-19] MEDS ORDERED: FUROSEMIDE 20 MG TAB PO ONE (15:30)
[2017-05-19] MEDS ORDERED: MYCOPHENOLATE 250 MG CAP PO ONE (15:45)
[2017-05-19 17:28] VITALS: BP 144/97
[2017-05-19 17:34] LABS: Prothrombin Time 10.9 sec (9.37-12.3)
[2017-05-19] MEDS: methylPREDNISolone SOD SUCC 40 MG/ML VL IV SCH ×2 (18:06→23:37)
[2017-05-19] MEDS: IPRATROPIUM BROM 0.5 MG/2.5ML INH SOL NEB SCH (18:45)
[2017-05-19] MEDS: ALBUTEROL SULF 2.5 MG/0.5ML(0.5%) NEB SOLN NEB SCH (18:45)
[2017-05-19] MEDS: HYDROmorphone HCL 2 MG TAB PO PRN ×3 (19:35→23:34)
[2017-05-19] MEDS: ZOLPIDEM TARTRATE 5 MG TAB PO SCH (20:14)
[2017-05-19 21:49] VITALS: BP 131/79
[2017-05-19] MEDS: BUDESONIDE (INHALATION) 0.5 MG/2 ML NEB NEB SCH (22:32)
[2017-05-20] MEDS: IPRATROPIUM BROM 0.5 MG/2.5ML INH SOL NEB SCH ×4 (00:46→18:03)
[2017-05-20] MEDS: ALBUTEROL SULF 2.5 MG/0.5ML(0.5%) NEB SOLN NEB SCH ×4 (00:46→18:03)
[2017-05-20] MEDS: LORazepam 0.5 MG TAB PO PRN ×3 (01:04→18:52)
[2017-05-20] MEDS: diphenhdrAMINE HCL 25 MG CAP PO PRN ×3 (01:04→18:52)
[2017-05-20] MEDS: SODIUM CHLORIDE 0.9% 1,000 ML IV SCH ×2 (02:00)
[2017-05-20] MEDS: HYDROmorphone HCL 2 MG TAB PO PRN ×7 (04:01→20:14)
[2017-05-20 05:00] VITALS: BP 130/80
[2017-05-20 05:52] LABS: Basophils # (auto) 0 uL; Eosinophils # (auto) 0 uL; Hemoglobin 13.2 g/dL (13.5-17.5); Lymphocytes # (auto) 0.6 uL; Lymphocytes % (auto) 4.1 % (10.0-50.0); Nucleated Red Blood Cells % 0.1 %
[2017-05-20 05:54] LABS: Eosinophils % (auto) 0.1 % (0.0-7.0); Hematocrit 42.6 % (41.0-53.0); INR 0.99 (0.9-1.15); Mean Corpuscular Hemoglobin 18.6 pg (28.0-32.0); Mean Corpuscular Volume 60.2 fL (80.0-100.0); Mean Platelet Volume 10.2 fL (6.9-10.8); Monocytes # (auto) 0.3 uL; Monocytes % (auto) 1.8 % (0.0-12.0); Neutrophils # (auto) 14.2 uL; Partial Thromboplastin Time 26.4 sec (22.64-33.71); Platelet Count (auto) 229 10^3/uL (140-450); Prothrombin Time 10.8 sec (9.37-12.3); White Blood Cell 15.1 10^3/uL (4.4-10.8)
[2017-05-20 06:07] LABS: Red Cell Distribution Width 21.9 % (11.8-14.3)
[2017-05-20 06:20] LABS: BUN/Creatinine Ratio 18.5; Calcium 9.2 mg/dL (8.5-10.1); Potassium 4.5 mmol/L (3.5-5.1)
[2017-05-20] MEDS: methylPREDNISolone SOD SUCC 40 MG/ML VL IV SCH ×3 (06:20→18:45)
[2017-05-20 06:52] LABS: Anisocytosis Moderate; Hypochromia Marked; Microcytosis Marked; Ovalocytes MODERATE; Schistocytes FEW; Tear Drop Cells FEW
[2017-05-20 06:53] LABS: Hypersegmented Neutrophils F
[2017-05-20] MEDS: BUDESONIDE (INHALATION) 0.5 MG/2 ML NEB NEB SCH ×2 (07:45→18:03)
[2017-05-20 08:27] LABS: Platelet Estimate Adequate
[2017-05-20 08:56] VITALS: BP 125/76
[2017-05-20] MEDS: cefTRIAXone 1GM/10ml IVPUSH 10 ML IV SCH (09:30)
[2017-05-20] MEDS: HYDROXYCHLOROQUINE SULFATE 200 MG TAB PO SCH (09:31)
[2017-05-20] MEDS: FUROSEMIDE 20 MG TAB PO SCH (09:32)
[2017-05-20] MEDS ORDERED: ENOXAPARIN SOD 40 MG/0.4 ML SYRINGE SC SCH (10:00)
[2017-05-20] MEDS: MYCOPHENOLATE 250 MG CAP PO SCH (12:18)
[2017-05-20 13:00] VITALS: BP 124/78
[2017-05-20] MEDS: SODIUM CHLOR 0.9% PF (SALINE LOCK) 10ML VIAL IV SCH ×2 (14:00→21:03)
[2017-05-20 17:00] VITALS: BP 130/91
[2017-05-20] MEDS: ZOLPIDEM TARTRATE 5 MG TAB PO SCH (21:02)
[2017-05-20 22:00] VITALS: BP_SYST 106; BP_SYST 134; BP_DIAS 61; BP_DIAS 66
[2017-05-21] MEDS: HYDROmorphone HCL 2 MG TAB PO PRN ×4 (00:04→11:53)
[2017-05-21] MEDS: diphenhdrAMINE HCL 25 MG CAP PO PRN ×3 (01:00→14:05)
[2017-05-21] MEDS: SODIUM CHLORIDE 0.9% 1,000 ML IV SCH ×2 (01:45→02:12)
[2017-05-21 05:00] VITALS: BP 122/70
[2017-05-21] MEDS: SODIUM CHLOR 0.9% PF (SALINE LOCK) 10ML VIAL IV SCH (05:38)
[2017-05-21] MEDS: BUDESONIDE (INHALATION) 0.5 MG/2 ML NEB NEB SCH (06:10)
[2017-05-21] MEDS: IPRATROPIUM BROM 0.5 MG/2.5ML INH SOL NEB SCH ×2 (06:10)
[2017-05-21] MEDS: ALBUTEROL SULF 2.5 MG/0.5ML(0.5%) NEB SOLN NEB SCH ×2 (06:10)
[2017-05-21] MEDS: MYCOPHENOLATE 250 MG CAP PO SCH (08:29)
[2017-05-21] MEDS: LORazepam 0.5 MG TAB PO PRN (08:33)
[2017-05-21] MEDS: HYDROXYCHLOROQUINE SULFATE 200 MG TAB PO SCH (08:33)
[2017-05-21] MEDS: FUROSEMIDE 20 MG TAB PO SCH (08:34)
[2017-05-21] MEDS: cefTRIAXone 1GM/10ml IVPUSH 10 ML IV SCH (08:34)
[2017-05-21 08:53] LABS: Basophils # (auto) 0 uL; Eosinophils # (auto) 0 uL; Eosinophils % (auto) 0.2 % (0.0-7.0); Monocytes # (auto) 1.1 uL
[2017-05-21 08:57] LABS: Hematocrit 38.3 % (41.0-53.0); Hemoglobin 11.9 g/dL (13.5-17.5); Lymphocytes # (auto) 0.9 uL; Lymphocytes % (auto) 5.2 % (10.0-50.0); Mean Corpuscular Hemoglobin 18.4 pg (28.0-32.0); Mean Corpuscular Hgb Conc. 31.1 g/dL (32.0-36.0); Mean Corpuscular Volume 59.4 fL (80.0-100.0); Mean Platelet Volume 9.8 fL (6.9-10.8); Neutrophils # (auto) 15.7 uL; Neutrophils % (auto) 88.6 % (37.0-80.0); Platelet Count (auto) 168 10^3/uL (140-450); White Blood Cell 17.7 10^3/uL (4.4-10.8)
[2017-05-21 09:00] LABS: Red Cell Distribution Width 21.3 % (11.8-14.3)
[2017-05-21 09:09] LABS: INR 0.99 (0.9-1.15); Partial Thromboplastin Time 23.6 sec (22.64-33.71); Prothrombin Time 10.8 sec (9.37-12.3)
[2017-05-21 09:14] LABS: BUN/Creatinine Ratio 23.7; Calcium 8.7 mg/dL (8.5-10.1); Potassium 3.5 mmol/L (3.5-5.1)
[2017-05-21 09:28] VITALS: BP 130/66
[2017-05-21] MEDS ORDERED: predniSONE 20 MG TAB PO SCH (10:00)
[2017-05-21 10:39] VITALS: BP 130/66
[2017-05-21 11:13] LABS: Platelet Estimate Adequate; Schistocytes FEW
[2017-05-21 11:14] LABS: Anisocytosis Moderate; Ovalocytes FEW; Tear Drop Cells FEW
[2017-05-21 11:15] LABS: Hypochromia Marked; Microcytosis Marked; Polychromasia Slight
[2017-05-21 13:05] VITALS: BP 125/70
== END 2017-05-21 14:15 | disposition home or self-care (01) | DRG 194 ==
LOC: ER 09:35 → TELE 09:36 → TELE-WESTW 18:18
PROVIDERS: ADMIT Internal Medicine; ATTEND Internal Medicine Pulmonary Disease
DX: I11.0 Hypertensive heart disease with heart failure (principal); J45.42 Moderate persistent asthma with status asthmaticus; J44.1 Chronic obstructive pulmonary disease with (acute) exacerbation; I42.9 Cardiomyopathy, unspecified; M32.9 Systemic lupus erythematosus, unspecified; K21.9 Gastro-esophageal reflux disease without esophagitis; I50.33 Acute on chronic diastolic (congestive) heart failure; I50.9 Heart failure, unspecified; N39.0 Urinary tract infection, site not specified; D64.9 Anemia, unspecified; E03.9 Hypothyroidism, unspecified; F41.9 Anxiety disorder, unspecified; F17.200 Nicotine dependence, unspecified, uncomplicated; I25.10 Atherosclerotic heart disease of native coronary artery without angina pectoris; M06.9 Rheumatoid arthritis, unspecified; M81.0 Age-related osteoporosis without current pathological fracture; N20.0 Calculus of kidney; R31.0 Gross hematuria; Z80.0 Family history of malignant neoplasm of digestive organs; Z82.49 Family history of ischemic heart disease and other diseases of the circulatory system; Z82.5 Family history of asthma and other chronic lower respiratory diseases; Z83.3 Family history of diabetes mellitus; Z86.718 Personal history of other venous thrombosis and embolism; Z82.61 Family history of arthritis; Z88.1 Allergy status to other antibiotic agents; Z88.8 Allergy status to other drugs, medicaments and biological substances
CPT/HCPCS: 36415; 71020; 74176; 76775; 80048; 80053; 81001; 83735; 84443; 85025; 85610; 85730; 87081; 94640; 96361; 96365; 96367; 96372; 96375; J1100; J7517

== ENCOUNTER 2017-06-01 13:56 | Emergency (ER) | payer MEDICAID ==
[~2017-06-01] VITALS: Ht 182.9 cm; Wt 79.4 kg
[~2017-06-01 13:56] MED LIST changes: -HYDR2TAB29 PO; +HYDR2TAB58 PO
[2017-06-01 14:25] VITALS: BP 130/80
== END 2017-06-01 15:00 | disposition left against medical advice (07) ==
LOC: ER 14:06
DX: R06.02 Shortness of breath (principal); Z53.21 Procedure and treatment not carried out due to patient leaving prior to being seen by health care provider
CPT/HCPCS: 93005

== ENCOUNTER 2017-06-02 07:47 | Emergency (ER) | payer MEDICAID ==
[~2017-06-02] VITALS: Ht 182.9 cm; Wt 79.4 kg
[2017-06-02] MEDS ORDERED: IPRATROPIUM BROM 0.5 MG/2.5ML INH SOL NEB ONE (08:00)
[2017-06-02] MEDS ORDERED: ALBUTEROL SULF 2.5 MG/0.5ML(0.5%) NEB SOLN NEB ONE (08:00)
[2017-06-02 08:50] LABS: Albumin 3.7 g/dL (3.4-5.0); BUN/Creatinine Ratio 14.1; Calcium 8.3 mg/dL (8.5-10.1); Potassium 4.1 mmol/L (3.5-5.1)
[2017-06-02 08:53] LABS: Bilirubin, Total 0.6 mg/dL (0.2-1.0); Total Protein 6.7 g/dL (6.4-8.2)
[2017-06-02] MEDS ORDERED: D5W 5% IV ONE (09:00)
[2017-06-02] MEDS ORDERED: TERBUTALINE SULFATE 1 MG/ML 1ML VIAL SC ONE (09:00)
[2017-06-02] MEDS ORDERED: AMINOPHYLLINE IV ONE (09:00)
[2017-06-02 10:25] LABS: Urine Bilirubin Negative (Negative); Urine Blood 3+ /uL (Negative); Urine Glucose TRACE mg/dL (Normal); Urine Ketone Negative (Negative); Urine Mucus FEW (None Seen); Urine Nitrite Negative (Negative); Urine RBC 15774 /hpf (0 - 3); Urine Urobilinogen Normal (Negative)
[2017-06-02 10:33] LABS: Basophils # (auto) 0.1 uL; Eosinophils # (auto) 0.6 uL; Hemoglobin 12.7 g/dL (13.5-17.5); Mean Platelet Volume 10.5 fL (6.9-10.8)
[2017-06-02 10:35] LABS: Basophils % (auto) 1.1 % (0.0-2.0); Eosinophils % (auto) 7.5 % (0.0-7.0); Hematocrit 40.8 % (41.0-53.0); Lymphocytes # (auto) 1.3 uL; Lymphocytes % (auto) 16.5 % (10.0-50.0); Mean Corpuscular Hemoglobin 18.7 pg (28.0-32.0); Mean Corpuscular Hgb Conc. 31.2 g/dL (32.0-36.0); Mean Corpuscular Volume 59.9 fL (80.0-100.0); Monocytes # (auto) 0.7 uL; Monocytes % (auto) 9.8 % (0.0-12.0); Neutrophils # (auto) 4.9 uL; Neutrophils % (auto) 65.1 % (37.0-80.0); Platelet Count (auto) 269 10^3/uL (140-450); White Blood Cell 7.6 10^3/uL (4.4-10.8)
[2017-06-02 10:46] LABS: Urine Color Red (Yellow)
[2017-06-02 10:51] LABS: Red Cell Distribution Width 21.8 % (11.8-14.3)
[2017-06-02 11:24] LABS: Anisocytosis Moderate; Burr Cells FEW; Hypochromia Marked; Microcytosis Marked; Ovalocytes MODERATE; Schistocytes FEW; Tear Drop Cells FEW
[2017-06-02 11:25] LABS: Platelet Estimate Adequate
[2017-06-02 15:08] VITALS: BP 128/75
[2017-06-02 15:14] LABS: INR 0.98 (0.9-1.15); Partial Thromboplastin Time 26.4 sec (22.64-33.71); Prothrombin Time 10.7 sec (9.37-12.3)
== END 2017-06-02 15:43 | disposition home or self-care (01) ==
LOC: ER 07:47
DX: J44.1 Chronic obstructive pulmonary disease with (acute) exacerbation (principal); R31.0 Gross hematuria; I25.10 Atherosclerotic heart disease of native coronary artery without angina pectoris; K21.9 Gastro-esophageal reflux disease without esophagitis; I11.0 Hypertensive heart disease with heart failure; I50.9 Heart failure, unspecified; E07.9 Disorder of thyroid, unspecified
CPT/HCPCS: 36415; 71010; 80053; 81001; 85025; 85610; 85730; 94640; 96365; 96366; 96372; 99285; J0280; J3105; J7060

== ENCOUNTER 2017-06-02 15:58 | Emergency (ER) | payer MEDICAID | END 2017-06-02 16:08 | disposition left against medical advice (07) | LOC: ER 16:04 | DX: D72.0 Genetic anomalies of leukocytes (principal); Z53.21 Procedure and treatment not carried out due to patient leaving prior to being seen by health care provider ==

== ENCOUNTER 2017-06-08 07:27 | Emergency (ER) | payer MEDICAID ==
[~2017-06-08] VITALS: Ht 182.9 cm; Wt 77.1 kg
[2017-06-08 07:37] VITALS: BP 133/97
[2017-06-08] MEDS ORDERED: ALBUTEROL SULF 2.5 MG/0.5ML(0.5%) NEB SOLN NEB ONE (08:00)
[2017-06-08] MEDS ORDERED: IPRATROPIUM BROM 0.5 MG/2.5ML INH SOL NEB ONE (08:00)
[2017-06-08] MEDS ORDERED: methylPREDNISolone SOD SUCC 125 MG/2 ML VL IM ONE (08:00)
== END 2017-06-08 08:50 | disposition left against medical advice (07) ==
LOC: ER 07:27
DX: J45.901 Unspecified asthma with (acute) exacerbation (principal); I50.9 Heart failure, unspecified; I11.0 Hypertensive heart disease with heart failure; K21.9 Gastro-esophageal reflux disease without esophagitis; I25.10 Atherosclerotic heart disease of native coronary artery without angina pectoris; J44.9 Chronic obstructive pulmonary disease, unspecified
CPT/HCPCS: 94640; 96372; 99283; J2930

== ENCOUNTER 2017-06-17 05:29 | Inpatient (IN) | payer MEDICAID ==
[~2017-06-17] VITALS: Ht 182.9 cm; Wt 79.5 kg
[2017-06-17] MEDS ORDERED: methylPREDNISolone SOD SUCC 125 MG/2 ML VL IV ONE (07:00)
[2017-06-17] MEDS ORDERED: IPRATROPIUM BROM 0.5 MG/2.5ML INH SOL HHN ONE (07:15)
[2017-06-17] MEDS ORDERED: ALBUTEROL SULF 2.5 MG/0.5ML(0.5%) NEB SOLN HHN ONE (07:15)
[2017-06-17] MEDS ORDERED: ONDANSETRON HCL 4 MG/2 ML VIAL ONE (07:32)
[2017-06-17 07:33] LABS: Hemoglobin 13.1 g/dL (13.5-17.5)
[2017-06-17 07:35] LABS: Hematocrit 41.5 % (41.0-53.0); Mean Corpuscular Hemoglobin 18.8 pg (28.0-32.0); Mean Corpuscular Hgb Conc. 31.6 g/dL (32.0-36.0); Mean Corpuscular Volume 59.4 fL (80.0-100.0); Platelet Count (auto) 359 10^3/uL (140-450); Red Blood Cells 6.98 10^6/uL (4.5-5.90); White Blood Cell 13.7 10^3/uL (4.4-10.8)
[2017-06-17 07:45] LABS: INR 0.92 (0.9-1.15)
[2017-06-17] MEDS ORDERED: ONDANSETRON HCL 4 MG/2 ML VIAL IV ONE (07:45)
[2017-06-17 08:01] LABS: Red Cell Distribution Width 21.3 % (11.8-14.3)
[2017-06-17 08:02] LABS: Band Neutrophils % (manual) 0; Basophils % (manual) 0 (0.0-2.0); Blast Cells 0; Myelocytes % 0; Promyelocytes % 0; Reactive Lymphocytes 0
[2017-06-17 08:06] LABS: Alanine Aminotransferase 23 U/L (16-61); Alkaline Phosphatase 66 U/L (45-117); Anion Gap 7 (5-15); Aspartate Aminotransferase 14 U/L (15-37); BUN/Creatinine Ratio 21.3; Bilirubin, Total 0.4 mg/dL (0.2-1.0); Blood Urea Nitrogen 13 mg/dL (7-18); Calcium 8.6 mg/dL (8.5-10.1); Carbon Dioxide 27 mmol/L (21-32); Chloride 106 mmol/L (98-107); GFR African American 198 mL/min; GFR Non-African American 164 mL/min; Glucose 86 mg/dL (74-106); Magnesium 2.4 mg/dL (1.6-2.6); Potassium 3.9 mmol/L (3.5-5.1); Sodium 140 mmol/L (136-145); Total Protein 7.4 g/dL (6.4-8.2)
[2017-06-17] MEDS ORDERED: HYDROmorphone HCL 2 MG/ML VL IV ONE (08:15)
[2017-06-17] MEDS: SODIUM CHLORIDE 0.9% 1,000 ML IV SCH ×2 (08:22→21:02)
[2017-06-17] MEDS ORDERED: ALBUTEROL SULF 2.5 MG/0.5ML(0.5%) NEB SOLN NEB PRN (08:30)
[2017-06-17] MEDS ORDERED: OSELTAMIVIR 75 MG CAP PO ONE (08:30)
[2017-06-17] MEDS ORDERED: LORazepam 0.5 MG TAB PO PRN (08:30)
[2017-06-17] MEDS ORDERED: NITROGLYCERIN 0.4 MG SL TAB SL PRN (08:30)
[2017-06-17] MEDS ORDERED: PROMETHAZINE HCL 25 MG/ML 1ML IV PRN (08:30)
[2017-06-17] MEDS ORDERED: MORPHINE SULF INJ 2 MG/ML SYRINGE 1ML IV PRN ×2 (08:30→08:45)
[2017-06-17] MEDS ORDERED: MORPHINE SULFATE 4 MG/ML SYR/VIAL IV PRN ×2 (08:30)
[2017-06-17] MEDS ORDERED: TEMAZEPAM 15 MG CAP PO PRN (08:30)
[2017-06-17] MEDS ORDERED: LACTULOSE 20Gm/30ML SOLN PO PRN (08:30)
[2017-06-17] MEDS ORDERED: MORPHINE SULFATE 10 MG/ML INJ 1ML SDV IV PRN (08:45)
[2017-06-17] MEDS: DOXYCYCLINE HYC 100MG/250ML 250 ML IV SCH ×2 (08:50→21:34)
[2017-06-17 08:52] LABS: Eosinophils % (manual) 5 (0-7); Lymphocytes % (manual) 12 (10.0-50.0); Metamyelocytes % 2; Monocytes % (manual) 9 (0-12)
[2017-06-17] MEDS: BUDESONIDE FORMOTEROL FUMARATE IN SCH ×2 (09:52→21:01)
[2017-06-17] MEDS: HYDROXYCHLOROQUINE SULFATE 200 MG TAB PO SCH (09:52)
[2017-06-17] MEDS ORDERED: OSELTAMIVIR 75 MG CAP PO SCH (10:00)
[2017-06-17] MEDS: MYCOPHENOLATE 250 MG CAP PO SCH (10:01)
[2017-06-17] MEDS: HYDROmorphone HCL 2 MG TAB PO PRN ×4 (11:07→23:15)
[2017-06-17] MEDS: methylPREDNISolone SOD SUCC 40 MG/ML VL IV SCH ×2 (12:24→17:56)
[2017-06-17] MEDS: diphenhdrAMINE HCL 25 MG CAP PO PRN ×2 (12:48→20:24)
[2017-06-17] MEDS: ALBUTEROL SULF 2.5 MG/0.5ML(0.5%) NEB SOLN NEB SCH ×3 (12:58→23:37)
[2017-06-17] MEDS: IPRATROPIUM BROM 0.5 MG/2.5ML INH SOL NEB SCH ×3 (12:58→23:37)
[2017-06-17] MEDS: RIVAROXABAN 20 MG TAB PO SCH (17:56)
[2017-06-17 18:30] VITALS: BP 125/74
[2017-06-17] MEDS: ZOLPIDEM TARTRATE 5 MG TAB PO PRN (20:23)
[2017-06-17 22:00] VITALS: BP 145/86
[2017-06-17] MEDS: methylPREDNISolone SOD SUCC 125 MG/2 ML VL IV SCH (23:15)
[2017-06-18] MEDS: HYDROmorphone HCL 2 MG TAB PO PRN ×6 (03:07→22:35)
[2017-06-18] MEDS: diphenhdrAMINE HCL 25 MG CAP PO PRN ×3 (03:07→21:14)
[2017-06-18 05:00] VITALS: BP 129/84
[2017-06-18] MEDS: methylPREDNISolone SOD SUCC 125 MG/2 ML VL IV SCH ×3 (05:26→18:39)
[2017-06-18] MEDS: ALBUTEROL SULF 2.5 MG/0.5ML(0.5%) NEB SOLN NEB SCH ×3 (05:46→18:17)
[2017-06-18] MEDS: IPRATROPIUM BROM 0.5 MG/2.5ML INH SOL NEB SCH ×3 (05:46→18:17)
[2017-06-18 08:34] LABS: Basophils # (auto) 0 uL; Eosinophils # (auto) 0 uL; Neutrophils # (auto) 16.5 uL
[2017-06-18 08:36] LABS: Basophils % (auto) 0.1 % (0.0-2.0); Hematocrit 38.4 % (41.0-53.0); Lymphocytes # (auto) 0.4 uL; Mean Corpuscular Hemoglobin 18.6 pg (28.0-32.0); Mean Corpuscular Hgb Conc. 31.3 g/dL (32.0-36.0); Mean Corpuscular Volume 59.4 fL (80.0-100.0); Monocytes # (auto) 0.6 uL; Monocytes % (auto) 3.4 % (0.0-12.0); Neutrophils % (auto) 94.5 % (37.0-80.0); Platelet Count (auto) 283 10^3/uL (140-450); Red Blood Cells 6.47 10^6/uL (4.5-5.90); White Blood Cell 17.5 10^3/uL (4.4-10.8)
[2017-06-18 09:00] VITALS: BP 128/88
[2017-06-18 09:07] LABS: Red Cell Distribution Width 21.5 % (11.8-14.3)
[2017-06-18] MEDS: DOXYCYCLINE HYC 100MG/250ML 250 ML IV SCH ×2 (09:13→20:12)
[2017-06-18] MEDS: BUDESONIDE FORMOTEROL FUMARATE IN SCH (10:00)
[2017-06-18] MEDS: HYDROXYCHLOROQUINE SULFATE 200 MG TAB PO SCH (10:47)
[2017-06-18] MEDS: MYCOPHENOLATE 250 MG CAP PO SCH (10:47)
[2017-06-18] MEDS: SODIUM CHLORIDE 0.9% 1,000 ML IV SCH (11:02)
[2017-06-18 16:46] VITALS: BP 147/79
[2017-06-18] MEDS: RIVAROXABAN 20 MG TAB PO SCH (18:39)
[2017-06-18] MEDS: ZOLPIDEM TARTRATE 5 MG TAB PO PRN (20:12)
[2017-06-18 21:51] VITALS: BP 140/93
[2017-06-18] MEDS ORDERED: BUDESONIDE (INHALATION) 0.5 MG/2 ML NEB NEB SCH (22:00)
[2017-06-18] MEDS ORDERED: MONTELUKAST SODIUM 10 MG TAB PO SCH (22:00)
[2017-06-19] MEDS: SODIUM CHLORIDE 0.9% 1,000 ML IV SCH (00:08)
== END 2017-06-19 | disposition left against medical advice (07) | DRG 133 ==
LOC: EDBD 05:29 → ER 05:34 → TELE 05:35 → TELE-CENTR 17:29
PROVIDERS: ADMIT Internal Medicine; ATTEND Family Medicine
DX: J96.00 Acute respiratory failure, unspecified whether with hypoxia or hypercapnia (principal); J18.9 Pneumonia, unspecified organism; J45.902 Unspecified asthma with status asthmaticus; I11.0 Hypertensive heart disease with heart failure; J44.1 Chronic obstructive pulmonary disease with (acute) exacerbation; I50.9 Heart failure, unspecified; J44.0 Chronic obstructive pulmonary disease with (acute) lower respiratory infection; E03.9 Hypothyroidism, unspecified; I25.10 Atherosclerotic heart disease of native coronary artery without angina pectoris; M06.9 Rheumatoid arthritis, unspecified; F41.9 Anxiety disorder, unspecified; M81.0 Age-related osteoporosis without current pathological fracture; K59.00 Constipation, unspecified; G47.00 Insomnia, unspecified; K21.9 Gastro-esophageal reflux disease without esophagitis; Z80.0 Family history of malignant neoplasm of digestive organs; Z79.52 Long term (current) use of systemic steroids; Z82.49 Family history of ischemic heart disease and other diseases of the circulatory system; Z82.5 Family history of asthma and other chronic lower respiratory diseases; Z83.3 Family history of diabetes mellitus; Z86.718 Personal history of other venous thrombosis and embolism; Z87.442 Personal history of urinary calculi; Z88.1 Allergy status to other antibiotic agents; Z88.6 Allergy status to analgesic agent; Z88.8 Allergy status to other drugs, medicaments and biological substances; Z79.899 Other long term (current) drug therapy
CPT/HCPCS: 36415; 36600; 71046; 80053; 82805; 83605; 83735; 83880; 84484; 85007; 85025; 85027; 85610; 85730; 87040; 87070; 87081; 87205; 87400; 93005; 94640; 94644; 96374; 96375; J2405; J3490; J7517

== ENCOUNTER 2017-07-12 17:35 | Inpatient (IN) | payer MEDICAID ==
[~2017-07-12] VITALS: Ht 185.4 cm; Wt 129.0 kg
[2017-07-12] MEDS ORDERED: ALBUTEROL SULF 2.5 MG/0.5ML(0.5%) NEB SOLN HHN ONE (19:15)
[2017-07-12] MEDS ORDERED: methylPREDNISolone SOD SUCC 125 MG/2 ML VL IV ONE (19:15)
[2017-07-12] MEDS ORDERED: IPRATROPIUM BROM 0.5 MG/2.5ML INH SOL HHN ONE (19:15)
[2017-07-12] MEDS ORDERED: ONDANSETRON HCL 4 MG/2 ML VIAL IV ONE (20:30)
[2017-07-12] MEDS ORDERED: MORPHINE SULFATE 10 MG/ML INJ 1ML SDV IV ONE (20:30)
[2017-07-12 20:34] LABS: Hemoglobin 12.9 g/dL (13.5-17.5); Mean Corpuscular Hgb Conc. 31.6 g/dL (32.0-36.0); Nucleated Red Blood Cells % 0.1 %
[2017-07-12 20:35] LABS: Basophils # (auto) 0.1 uL; Basophils % (auto) 1.8 % (0.0-2.0); Eosinophils # (auto) 0.7 uL; Eosinophils % (auto) 9.5 % (0.0-7.0); Hematocrit 40.6 % (41.0-53.0); Lymphocytes # (auto) 1.9 uL; Lymphocytes % (auto) 25.9 % (10.0-50.0); Mean Corpuscular Hemoglobin 19.1 pg (28.0-32.0); Mean Corpuscular Volume 60.3 fL (80.0-100.0); Monocytes # (auto) 0.8 uL; Neutrophils % (auto) 52.8 % (37.0-80.0); Platelet Count (auto) 340 10^3/uL (140-450); Red Blood Cells 6.74 10^6/uL (4.5-5.90); White Blood Cell 7.5 10^3/uL (4.4-10.8)
[2017-07-12 20:51] LABS: Red Cell Distribution Width 21.8 % (11.8-14.3)
[2017-07-12 21:09] LABS: Alanine Aminotransferase 25 U/L (16-61); Albumin 3.9 g/dL (3.4-5.0); Alkaline Phosphatase 85 U/L (45-117); Anion Gap 7 (5-15); Aspartate Aminotransferase 19 U/L (15-37); BUN/Creatinine Ratio 14.8; Bilirubin, Total 0.5 mg/dL (0.2-1.0); Blood Urea Nitrogen 12 mg/dL (7-18); Calcium 8.3 mg/dL (8.5-10.1); Carbon Dioxide 24 mmol/L (21-32); Chloride 112 mmol/L (98-107); GFR African American 143 mL/min; GFR Non-African American 118 mL/min; Glucose 98 mg/dL (74-106); Magnesium 2.4 mg/dL (1.6-2.6); Potassium 3.9 mmol/L (3.5-5.1); Sodium 143 mmol/L (136-145); Total Protein 7.5 g/dL (6.4-8.2)
[2017-07-12] MEDS ORDERED: MORPHINE SULF INJ 2 MG/ML SYRINGE 1ML IV PRN (21:30)
[2017-07-12] MEDS ORDERED: NITROGLYCERIN 0.4 MG SL TAB SL PRN (21:30)
[2017-07-12] MEDS ORDERED: TEMAZEPAM 15 MG CAP PO PRN (21:30)
[2017-07-12] MEDS ORDERED: ONDANSETRON HCL 4 MG/2 ML VIAL IV PRN (21:30)
[2017-07-12] MEDS ORDERED: cefTRIAXone 1GM/10ml IVPUSH 10 ML IV ONE (21:30)
[2017-07-12] MEDS ORDERED: methylPREDNISolone SOD SUCC 125 MG/2 ML VL IV SCH (22:00)
[2017-07-12] MEDS: HYDROmorphone HCL 2 MG TAB PO PRN (23:58)
[2017-07-13 00:15] VITALS: BP 130/74
[2017-07-13] MEDS: HYDROmorphone HCL 2 MG TAB PO PRN ×3 (06:10→18:31)
[2017-07-13 07:53] LABS: Basophils # (auto) 0 uL; Eosinophils # (auto) 0 uL; Lymphocytes # (auto) 0.7 uL; Neutrophils # (auto) 6.9 uL
[2017-07-13 07:54] LABS: Basophils % (auto) 0.2 % (0.0-2.0); Eosinophils % (auto) 0.4 % (0.0-7.0); Hematocrit 39.5 % (41.0-53.0); Hemoglobin 12.5 g/dL (13.5-17.5); Lymphocytes % (auto) 8.6 % (10.0-50.0); Mean Corpuscular Hemoglobin 19.1 pg (28.0-32.0); Mean Corpuscular Hgb Conc. 31.5 g/dL (32.0-36.0); Mean Corpuscular Volume 60.6 fL (80.0-100.0); Monocytes # (auto) 0.1 uL; Monocytes % (auto) 1.6 % (0.0-12.0); Neutrophils % (auto) 89.2 % (37.0-80.0); Platelet Count (auto) 388 10^3/uL (140-450); Red Blood Cells 6.52 10^6/uL (4.5-5.90); White Blood Cell 7.8 10^3/uL (4.4-10.8)
[2017-07-13 08:08] LABS: Albumin 3.8 g/dL (3.4-5.0); BUN/Creatinine Ratio 11.1; Bilirubin, Total 0.4 mg/dL (0.2-1.0); Calcium 8.8 mg/dL (8.5-10.1); Potassium 4.6 mmol/L (3.5-5.1); Total Protein 7.5 g/dL (6.4-8.2)
[2017-07-13 08:14] LABS: Red Cell Distribution Width 21.9 % (11.8-14.3)
[2017-07-13 09:00] VITALS: BP 129/77
[2017-07-13] MEDS: ALBUTEROL SULF 2.5 MG/0.5ML(0.5%) NEB SOLN NEB PRN (09:00)
[2017-07-13] MEDS: IPRATROPIUM BROM 0.5 MG/2.5ML INH SOL NEB PRN (09:00)
[2017-07-13] MEDS: cefTRIAXone 1GM/10ml IVPUSH 10 ML IV SCH ×2 (09:52→11:45)
[2017-07-13] MEDS: FUROSEMIDE 20 MG TAB PO SCH (09:58)
[2017-07-13] MEDS: predniSONE 20 MG TAB PO SCH (09:59)
[2017-07-13] MEDS: ENOXAPARIN SOD 40 MG/0.4 ML SYRINGE SC SCH (09:59)
[2017-07-13] MEDS: HYDROXYCHLOROQUINE SULFATE 200 MG TAB PO SCH (09:59)
[2017-07-13 11:57] VITALS: BP 129/62
[2017-07-13 13:00] VITALS: BP 134/92
[2017-07-13] MEDS ORDERED: MYCOPHENOLATE 250 MG CAP PO ONE (14:30)
[2017-07-13 17:00] VITALS: BP 104/56
[2017-07-13] MEDS: MYCOPHENOLATE 250 MG CAP PO SCH (21:41)
[2017-07-13 22:00] VITALS: BP 123/85
[2017-07-14] MEDS: HYDROmorphone HCL 2 MG TAB PO PRN ×5 (00:16→19:57)
[2017-07-14] MEDS: IPRATROPIUM BROM 0.5 MG/2.5ML INH SOL NEB PRN ×2 (00:40→09:20)
[2017-07-14] MEDS: ALBUTEROL SULF 2.5 MG/0.5ML(0.5%) NEB SOLN NEB PRN ×2 (00:40→09:20)
[2017-07-14 05:00] VITALS: BP 103/58
[2017-07-14 08:11] LABS: Basophils # (auto) 0.1 uL; Basophils % (auto) 0.5 % (0.0-2.0); Eosinophils # (auto) 0.6 uL; Eosinophils % (auto) 5.9 % (0.0-7.0); Hematocrit 40.1 % (41.0-53.0); Hemoglobin 12.7 g/dL (13.5-17.5); Lymphocytes # (auto) 2.2 uL; Lymphocytes % (auto) 20.7 % (10.0-50.0); Mean Corpuscular Hemoglobin 18.7 pg (28.0-32.0); Mean Corpuscular Hgb Conc. 31.5 g/dL (32.0-36.0); Mean Corpuscular Volume 59.4 fL (80.0-100.0); Monocytes # (auto) 0.9 uL; Monocytes % (auto) 8.7 % (0.0-12.0); Neutrophils # (auto) 6.8 uL; Neutrophils % (auto) 64.2 % (37.0-80.0); Nucleated Red Blood Cells % 0.3 %; Platelet Count (auto) 276 10^3/uL (140-450); Red Blood Cells 6.76 10^6/uL (4.5-5.90); White Blood Cell 10.6 10^3/uL (4.4-10.8)
[2017-07-14 08:29] LABS: BUN/Creatinine Ratio 20.7; Calcium 8.5 mg/dL (8.5-10.1)
[2017-07-14 09:00] VITALS: BP 131/80
[2017-07-14] MEDS: predniSONE 20 MG TAB PO SCH (10:13)
[2017-07-14] MEDS: ENOXAPARIN SOD 40 MG/0.4 ML SYRINGE SC SCH (10:17)
[2017-07-14] MEDS: FUROSEMIDE 20 MG TAB PO SCH (10:17)
[2017-07-14] MEDS: HYDROXYCHLOROQUINE SULFATE 200 MG TAB PO SCH (10:17)
[2017-07-14] MEDS: cefTRIAXone 1GM/10ml IVPUSH 10 ML IV SCH (10:18)
[2017-07-14] MEDS: MYCOPHENOLATE 250 MG CAP PO SCH ×2 (11:34→21:40)
[2017-07-14 13:28] VITALS: BP 132/80
[2017-07-14] MEDS: ALBUTEROL SULF 2.5 MG/0.5ML(0.5%) NEB SOLN NEB SCH ×2 (14:00→19:09)
[2017-07-14 17:07] VITALS: BP 130/79
[2017-07-14] MEDS: BUDESONIDE (INHALATION) 0.5 MG/2 ML NEB NEB SCH (19:09)
[2017-07-14] MEDS: ZOLPIDEM TARTRATE 5 MG TAB PO PRN (21:40)
[2017-07-14 22:17] VITALS: BP 135/91
[2017-07-15] MEDS: IPRATROPIUM BROM 0.5 MG/2.5ML INH SOL NEB PRN ×2 (02:18→10:38)
[2017-07-15] MEDS: ALBUTEROL SULF 2.5 MG/0.5ML(0.5%) NEB SOLN NEB PRN (02:19)
[2017-07-15] MEDS: HYDROmorphone HCL 2 MG TAB PO PRN ×6 (04:01→21:28)
[2017-07-15 04:44] VITALS: BP 120/69
[2017-07-15] MEDS: ALBUTEROL SULF 2.5 MG/0.5ML(0.5%) NEB SOLN NEB SCH ×4 (06:33→20:06)
[2017-07-15] MEDS: BUDESONIDE (INHALATION) 0.5 MG/2 ML NEB NEB SCH ×2 (06:34→22:29)
[2017-07-15] MEDS ORDERED: SODIUM CHLORIDE 0.9 % NEB SOLN 3ML NEB ONE ×2 (08:33→13:26)
[2017-07-15 09:00] VITALS: BP 115/67
[2017-07-15] MEDS: MYCOPHENOLATE 250 MG CAP PO SCH ×2 (10:56→21:27)
[2017-07-15] MEDS: predniSONE 20 MG TAB PO SCH (10:56)
[2017-07-15] MEDS: FUROSEMIDE 20 MG TAB PO SCH (10:56)
[2017-07-15] MEDS: ENOXAPARIN SOD 40 MG/0.4 ML SYRINGE SC SCH (10:57)
[2017-07-15] MEDS: HYDROXYCHLOROQUINE SULFATE 200 MG TAB PO SCH (10:57)
[2017-07-15] MEDS ORDERED: PHENYLEPHRINE HCL 1 % NASAL SPRAY 15ML PRN (11:00)
[2017-07-15] MEDS ORDERED: PROMETHAZINE HCL 25 MG/ML 1ML IV PRN (11:15)
[2017-07-15 12:39] VITALS: BP 123/74
[2017-07-15] MEDS: AMOXICILLIN/CLAVULAN 500 MG TAB PO SCH ×2 (14:00→21:27)
[2017-07-15 16:55] VITALS: BP 122/68
[2017-07-15 17:30] LABS: Urine Bacteria NONE SEEN /hpf (None Seen); Urine Blood 3+ /uL (Negative); Urine WBC 20 /hpf (0 - 3)
[2017-07-15 17:44] LABS: Urine Specific Gravity 1.015 (1.001-1.035)
[2017-07-15] MEDS ORDERED: MORPHINE SULFATE 4 MG/ML SYR/VIAL IV PRN (20:00)
[2017-07-15] MEDS: ZOLPIDEM TARTRATE 5 MG TAB PO PRN (21:27)
[2017-07-15 22:00] VITALS: BP 116/70
== END 2017-07-16 02:17 | disposition left against medical advice (07) | DRG 133 ==
LOC: ER 17:35 → EDUNIT# 17:35 → EDBD 17:35 → TELE 17:36 → TELE-EAST 23:23
PROVIDERS: ADMIT Nurse Practitioner; ATTEND Internal Medicine Pulmonary Disease
DX: J96.20 Acute and chronic respiratory failure, unspecified whether with hypoxia or hypercapnia (principal); I13.0 Hypertensive heart and chronic kidney disease with heart failure and stage 1 through stage 4 chronic kidney disease, or unspecified chronic kidney disease; J44.0 Chronic obstructive pulmonary disease with (acute) lower respiratory infection; Z93.0 Tracheostomy status; J44.1 Chronic obstructive pulmonary disease with (acute) exacerbation; I50.9 Heart failure, unspecified; J45.901 Unspecified asthma with (acute) exacerbation; K21.9 Gastro-esophageal reflux disease without esophagitis; J20.9 Acute bronchitis, unspecified; N18.9 Chronic kidney disease, unspecified; I25.10 Atherosclerotic heart disease of native coronary artery without angina pectoris; E78.5 Hyperlipidemia, unspecified; Z53.21 Procedure and treatment not carried out due to patient leaving prior to being seen by health care provider; Z80.0 Family history of malignant neoplasm of digestive organs; Z82.49 Family history of ischemic heart disease and other diseases of the circulatory system; Z82.5 Family history of asthma and other chronic lower respiratory diseases; Z87.442 Personal history of urinary calculi; Z83.3 Family history of diabetes mellitus; Z88.1 Allergy status to other antibiotic agents; Z88.6 Allergy status to analgesic agent; Z88.8 Allergy status to other drugs, medicaments and biological substances; F41.9 Anxiety disorder, unspecified
CPT/HCPCS: 36415; 71046; 74176; 80048; 80053; 81001; 83735; 83880; 84484; 85025; 93005; 94640; 94644; 94761; 96374; 96375; J2405; J7517

== ENCOUNTER 2017-07-30 18:08 | Inpatient (IN) | payer MEDICAID, OTHER ==
[~2017-07-30] VITALS: Ht 185.4 cm; Wt 78.4 kg
[2017-07-30 21:56] LABS: Hematocrit 41.5 % (41.0-53.0); Mean Corpuscular Hemoglobin 18.9 pg (28.0-32.0); Mean Corpuscular Hgb Conc. 31.4 g/dL (32.0-36.0); Mean Corpuscular Volume 60.1 fL (80.0-100.0); Platelet Count (auto) 316 10^3/uL (140-450); Red Blood Cells 6.91 10^6/uL (4.5-5.90); White Blood Cell 12.6 10^3/uL (4.4-10.8)
[2017-07-30] MEDS ORDERED: diphenhdrAMINE HCL 50 MG/1 ML VL ONE (21:59)
[2017-07-30] MEDS ORDERED: diphenhdrAMINE HCL 50 MG/1 ML VL IV ONE (22:00)
[2017-07-30 22:09] LABS: Albumin 3.7 g/dL (3.4-5.0); Calcium 8.3 mg/dL (8.5-10.1); Potassium 3.9 mmol/L (3.5-5.1)
[2017-07-30 22:12] LABS: Bilirubin, Total 0.4 mg/dL (0.2-1.0); Red Cell Distribution Width 21.6 % (11.8-14.3); Total Protein 6.9 g/dL (6.4-8.2)
[2017-07-30 22:13] LABS: Band Neutrophils % (manual) 0; Basophils % (manual) 0 (0.0-2.0); Blast Cells 0; Myelocytes % 0; Promyelocytes % 0; Reactive Lymphocytes 0
[2017-07-30 22:51] LABS: Eosinophils % (manual) 7 (0-7); Lymphocytes % (manual) 14 (10.0-50.0); Metamyelocytes % 2; Monocytes % (manual) 5 (0-12)
[2017-07-31] VITALS (7 sets, daily range): BP systolic 85–127; BP diastolic 52–82
[2017-07-31] MEDS ORDERED: HYDROmorphone HCL 2 MG TAB PO ONE (00:15)
[2017-07-31] MEDS ORDERED: cefTRIAXone 1GM/10ml IVPUSH 10 ML IV ONE (00:45)
[2017-07-31] MEDS ORDERED: MORPHINE SULFATE 4 MG/ML SYR/VIAL IV PRN (00:45)
[2017-07-31] MEDS ORDERED: DOCUSATE SOD 100 MG CAP PO PRN (00:45)
[2017-07-31] MEDS ORDERED: traMADol HCL 50 MG TAB PO PRN (00:45)
[2017-07-31 01:31] LABS: INR 1.08 (0.9-1.15); Partial Thromboplastin Time 28.7 sec (22.64-33.71); Prothrombin Time 11.8 sec (9.37-12.3)
[2017-07-31] MEDS: SODIUM CHLORIDE 0.9% 1,000 ML IV SCH ×2 (01:55→15:14)
[2017-07-31] MEDS: ALBUTEROL SULF 2.5 MG/0.5ML(0.5%) NEB SOLN NEB SCH ×3 (06:04→19:01)
[2017-07-31] MEDS: ALBUTEROL SULF 2.5 MG/0.5ML(0.5%) NEB SOLN NEB PRN (07:50)
[2017-07-31] MEDS ORDERED: FUROSEMIDE 20 MG TAB PO SCH (10:00)
[2017-07-31] MEDS ORDERED: guaiFENesin 200 MG/10 ML UD GT PRN (10:15)
[2017-07-31] MEDS: HYDROmorphone HCL 2 MG TAB PO PRN ×4 (10:37→22:54)
[2017-07-31] MEDS: FAMOTIDINE 20 MG TAB PO SCH ×2 (10:39→21:32)
[2017-07-31] MEDS: HYDROXYCHLOROQUINE SULFATE 200 MG TAB PO SCH (10:39)
[2017-07-31] MEDS: predniSONE 20 MG TAB PO SCH (10:40)
[2017-07-31] MEDS: ONDANSETRON HCL 4 MG/2 ML VIAL IV PRN ×3 (10:41→18:49)
[2017-07-31] MEDS: DOXYCYCLINE 100 MG TAB/CAP PO SCH ×2 (10:51→21:32)
[2017-07-31] MEDS: MYCOPHENOLATE 250 MG CAP PO SCH (10:51)
[2017-07-31] MEDS ORDERED: guaiFENesin 200 MG/10 ML UD PO PRN (11:00)
[2017-07-31] MEDS ORDERED: BUDESONIDE (INHALATION) 0.5 MG/2 ML NEB NEB SCH (12:00)
[2017-07-31] MEDS: ENOXAPARIN SOD 80 MG/0.8ML SYRINGE SC SCH (21:33)
[2017-07-31] MEDS: BUDESONIDE (INHALATION) 0.5 MG/2 ML NEB NEB SCH (22:49)
[2017-08-01] MEDS: ALBUTEROL SULF 2.5 MG/0.5ML(0.5%) NEB SOLN NEB SCH ×4 (00:48→19:10)
[2017-08-01] MEDS: HYDROmorphone HCL 2 MG TAB PO PRN ×5 (03:06→21:35)
[2017-08-01] MEDS: ONDANSETRON HCL 4 MG/2 ML VIAL IV PRN ×5 (03:06→21:34)
[2017-08-01] MEDS: SODIUM CHLORIDE 0.9% 1,000 ML IV SCH ×2 (03:21→18:40)
[2017-08-01] MEDS: ALBUTEROL SULF 2.5 MG/0.5ML(0.5%) NEB SOLN NEB PRN (04:50)
[2017-08-01 05:00] VITALS: BP 113/63
[2017-08-01] MEDS: BUDESONIDE (INHALATION) 0.5 MG/2 ML NEB NEB SCH ×2 (08:50→19:10)
[2017-08-01 09:00] VITALS: BP 113/69
[2017-08-01] MEDS: ENOXAPARIN SOD 80 MG/0.8ML SYRINGE SC SCH ×2 (10:40→21:34)
[2017-08-01] MEDS: predniSONE 20 MG TAB PO SCH (10:40)
[2017-08-01] MEDS: HYDROXYCHLOROQUINE SULFATE 200 MG TAB PO SCH (10:40)
[2017-08-01] MEDS: MYCOPHENOLATE 250 MG CAP PO SCH (10:40)
[2017-08-01] MEDS: FAMOTIDINE 20 MG TAB PO SCH ×2 (10:40→21:34)
[2017-08-01] MEDS: DOXYCYCLINE 100 MG TAB/CAP PO SCH (10:40)
[2017-08-01 13:00] VITALS: BP 103/83
[2017-08-01] MEDS ORDERED: ONDANSETRON HCL 4 MG/2 ML VIAL IV ONE (13:00)
[2017-08-01 17:14] VITALS: BP 115/72
[2017-08-01 22:00] VITALS: BP 120/72
[2017-08-02] MEDS: ALBUTEROL SULF 2.5 MG/0.5ML(0.5%) NEB SOLN NEB SCH ×4 (00:36→19:12)
[2017-08-02] MEDS: HYDROmorphone HCL 2 MG TAB PO PRN ×6 (01:48→22:42)
[2017-08-02] MEDS: ALBUTEROL SULF 2.5 MG/0.5ML(0.5%) NEB SOLN NEB PRN (03:12)
[2017-08-02 05:00] VITALS: BP 107/67
[2017-08-02 05:35] LABS: Hemoglobin 10.9 g/dL (13.5-17.5); Red Blood Cells 5.65 10^6/uL (4.5-5.90); White Blood Cell 10.1 10^3/uL (4.4-10.8)
[2017-08-02 05:39] LABS: Hematocrit 33.8 % (41.0-53.0); Mean Corpuscular Hemoglobin 19.3 pg (28.0-32.0); Mean Corpuscular Hgb Conc. 32.3 g/dL (32.0-36.0); Mean Corpuscular Volume 59.9 fL (80.0-100.0); Platelet Count (auto) 233 10^3/uL (140-450)
[2017-08-02] MEDS: SODIUM CHLORIDE 0.9% 1,000 ML IV SCH ×2 (05:48→19:14)
[2017-08-02 05:56] LABS: Red Cell Distribution Width 21.1 % (11.8-14.3)
[2017-08-02 05:57] LABS: Basophils % (manual) 0 (0.0-2.0); Blast Cells 0; Metamyelocytes % 0; Promyelocytes % 0; Reactive Lymphocytes 0
[2017-08-02 05:59] LABS: BUN/Creatinine Ratio 22.2; Potassium 3.6 mmol/L (3.5-5.1)
[2017-08-02 06:52] LABS: Band Neutrophils % (manual) 3; Eosinophils % (manual) 2 (0-7); Lymphocytes % (manual) 14 (10.0-50.0); Monocytes % (manual) 6 (0-12); Myelocytes % 1
[2017-08-02 09:00] VITALS: BP 119/71
[2017-08-02] MEDS: ENOXAPARIN SOD 80 MG/0.8ML SYRINGE SC SCH ×2 (09:46→21:00)
[2017-08-02] MEDS: FAMOTIDINE 20 MG TAB PO SCH ×2 (09:46→20:59)
[2017-08-02] MEDS: HYDROXYCHLOROQUINE SULFATE 200 MG TAB PO SCH (09:46)
[2017-08-02] MEDS: predniSONE 20 MG TAB PO SCH (09:46)
[2017-08-02] MEDS: MYCOPHENOLATE 250 MG CAP PO SCH (09:48)
[2017-08-02] MEDS: ONDANSETRON HCL 4 MG/2 ML VIAL IV PRN (10:31)
[2017-08-02] MEDS: BUDESONIDE (INHALATION) 0.5 MG/2 ML NEB NEB SCH ×2 (11:10→19:12)
[2017-08-02 13:00] VITALS: BP 116/63
[2017-08-02] MEDS ORDERED: ZOLPIDEM TARTRATE 5 MG TAB PO PRN (13:00)
[2017-08-02] MEDS: diphenhdrAMINE HCL 25 MG CAP PO PRN ×2 (13:57→22:41)
[2017-08-02 17:00] VITALS: BP 100/54
[2017-08-02 19:58] VITALS: BP 100/54
[2017-08-02 22:00] VITALS: BP 126/79
[2017-08-03] MEDS: HYDROmorphone HCL 2 MG TAB PO PRN ×4 (02:47→15:02)
[2017-08-03] MEDS: diphenhdrAMINE HCL 25 MG CAP PO PRN (05:25)
[2017-08-03 06:00] VITALS: BP 131/74
[2017-08-03 08:00] VITALS: BP 101/72
[2017-08-03] MEDS: BUDESONIDE (INHALATION) 0.5 MG/2 ML NEB NEB SCH (08:06)
[2017-08-03] MEDS: ALBUTEROL SULF 2.5 MG/0.5ML(0.5%) NEB SOLN NEB SCH ×3 (08:06→12:36)
[2017-08-03 09:00] VITALS: BP 101/72
[2017-08-03] MEDS: FAMOTIDINE 20 MG TAB PO SCH ×3 (09:37→11:01)
[2017-08-03] MEDS: predniSONE 20 MG TAB PO SCH ×3 (09:37→11:00)
[2017-08-03] MEDS: MYCOPHENOLATE 250 MG CAP PO SCH ×2 (09:37→09:47)
[2017-08-03] MEDS: SODIUM CHLORIDE 0.9% 1,000 ML IV SCH (09:38)
[2017-08-03] MEDS: ENOXAPARIN SOD 80 MG/0.8ML SYRINGE SC SCH ×3 (09:38→11:00)
[2017-08-03] MEDS: HYDROXYCHLOROQUINE SULFATE 200 MG TAB PO SCH ×3 (09:38→11:01)
[2017-08-03 10:31] LABS: Basophils # (auto) 0.1 uL; Eosinophils # (auto) 0.2 uL; Hematocrit 35.4 % (41.0-53.0); Hemoglobin 11.1 g/dL (13.5-17.5); Lymphocytes # (auto) 1.4 uL; Mean Corpuscular Hemoglobin 18.9 pg (28.0-32.0); Neutrophils # (auto) 6.3 uL
[2017-08-03 10:32] LABS: Basophils % (auto) 0.8 % (0.0-2.0); Eosinophils % (auto) 2.1 % (0.0-7.0); Lymphocytes % (auto) 16.2 % (10.0-50.0); Mean Corpuscular Hgb Conc. 31.3 g/dL (32.0-36.0); Mean Corpuscular Volume 60.4 fL (80.0-100.0); Monocytes # (auto) 0.7 uL; Monocytes % (auto) 7.7 % (0.0-12.0); Neutrophils % (auto) 73.2 % (37.0-80.0); Nucleated Red Blood Cells % 0.4 %; Platelet Count (auto) 36 10^3/uL (140-450); Red Blood Cells 5.86 10^6/uL (4.5-5.90); White Blood Cell 8.6 10^3/uL (4.4-10.8)
[2017-08-03 10:36] LABS: BUN/Creatinine Ratio 22.2; Calcium 8.3 mg/dL (8.5-10.1); Potassium 3.7 mmol/L (3.5-5.1)
[2017-08-03 10:37] LABS: Red Cell Distribution Width 21.7 % (11.8-14.3)
[2017-08-03 13:00] VITALS: BP 146/90
[2017-08-03] MEDS ORDERED: ALBU1.257 IN (13:52)
[2017-08-03 15:06] VITALS: BP 146/90
== END 2017-08-03 17:55 | disposition home or self-care (01) | DRG 103 ==
LOC: ER 18:08 → OVERFLOW 18:09 → WEST WING 07-31 01:15
PROVIDERS: ADMIT Nurse Practitioner; ATTEND Internal Medicine
DX: R51 Headache (principal); M32.9 Systemic lupus erythematosus, unspecified; I13.0 Hypertensive heart and chronic kidney disease with heart failure and stage 1 through stage 4 chronic kidney disease, or unspecified chronic kidney disease; I50.9 Heart failure, unspecified; D72.829 Elevated white blood cell count, unspecified; E03.9 Hypothyroidism, unspecified; S16.1XXA Strain of muscle, fascia and tendon at neck level, initial encounter; F32.9 Major depressive disorder, single episode, unspecified; J44.9 Chronic obstructive pulmonary disease, unspecified; K21.9 Gastro-esophageal reflux disease without esophagitis; G89.4 Chronic pain syndrome; K59.00 Constipation, unspecified; N18.9 Chronic kidney disease, unspecified; I25.10 Atherosclerotic heart disease of native coronary artery without angina pectoris; X58.XXXA Exposure to other specified factors, initial encounter; F41.9 Anxiety disorder, unspecified; I25.2 Old myocardial infarction; Z80.0 Family history of malignant neoplasm of digestive organs; Z82.49 Family history of ischemic heart disease and other diseases of the circulatory system; Z82.5 Family history of asthma and other chronic lower respiratory diseases; Z83.3 Family history of diabetes mellitus; Z86.711 Personal history of pulmonary embolism; Z86.718 Personal history of other venous thrombosis and embolism; Z87.891 Personal history of nicotine dependence; Z88.2 Allergy status to sulfonamides; Z88.5 Allergy status to narcotic agent; Z88.8 Allergy status to other drugs, medicaments and biological substances; Z79.899 Other long term (current) drug therapy; Y93.89 Activity, other specified; Y92.89 Other specified places as the place of occurrence of the external cause; Y99.8 Other external cause status; G97.1 Other reaction to spinal and lumbar puncture
CPT/HCPCS: 36415; 70450; 72125; 80048; 80053; 85007; 85025; 85027; 85610; 85730; 87040; 87081; 94640; 96374; J2405; J7517

== ENCOUNTER 2017-08-06 20:31 | Inpatient (IN) | payer MEDICAID, OTHER ==
[~2017-08-06] VITALS: Ht 177.8 cm; Wt 81.6 kg
[~2017-08-06 20:31] MED LIST changes: -ALBU0.084; +ALBU1.257 IN
[2017-08-06] MEDS ORDERED: IPRATROPIUM BROM 0.5 MG/2.5ML INH SOL NEB ONE (21:45)
[2017-08-06] MEDS ORDERED: methylPREDNISolone SOD SUCC 125 MG/2 ML VL IV ONE (21:45)
[2017-08-06] MEDS ORDERED: LORazepam 2MG/ML-1ML VIAL IV ONE (21:45)
[2017-08-06] MEDS ORDERED: MORPHINE SULFATE 4 MG/ML SYR/VIAL IV ONE (21:45)
[2017-08-06] MEDS ORDERED: ALBUTEROL SULF 2.5 MG/0.5ML(0.5%) NEB SOLN NEB ONE (21:45)
[2017-08-06 22:15] LABS: Basophils # (auto) 0 uL; Basophils % (auto) 0.3 % (0.0-2.0); Eosinophils # (auto) 0.1 uL; Eosinophils % (auto) 0.7 % (0.0-7.0); Hematocrit 37.6 % (41.0-53.0); Hemoglobin 11.8 g/dL (13.5-17.5); Lymphocytes # (auto) 0.5 uL; Lymphocytes % (auto) 3.7 % (10.0-50.0); Mean Corpuscular Hemoglobin 18.8 pg (28.0-32.0); Mean Corpuscular Hgb Conc. 31.3 g/dL (32.0-36.0); Monocytes # (auto) 0.7 uL; Monocytes % (auto) 4.7 % (0.0-12.0); Neutrophils # (auto) 13.2 uL; Neutrophils % (auto) 90.6 % (37.0-80.0); Platelet Count (auto) 105 10^3/uL (140-450); Red Blood Cells 6.26 10^6/uL (4.5-5.90); White Blood Cell 14.5 10^3/uL (4.4-10.8)
[2017-08-06] MEDS ORDERED: ONDANSETRON HCL 4 MG/2 ML VIAL IV ONE (22:30)
[2017-08-06 22:41] LABS: Alanine Aminotransferase 27 U/L (16-61); Albumin 3.3 g/dL (3.4-5.0); Alkaline Phosphatase 64 U/L (45-117); Anion Gap 10 (5-15); Aspartate Aminotransferase 16 U/L (15-37); BUN/Creatinine Ratio 14.8; Bilirubin, Total 0.5 mg/dL (0.2-1.0); Blood Urea Nitrogen 12 mg/dL (7-18); Calcium 8.3 mg/dL (8.5-10.1); Carbon Dioxide 25 mmol/L (21-32); Chloride 107 mmol/L (98-107); GFR African American 143 mL/min; GFR Non-African American 118 mL/min; Glucose 139 mg/dL (74-106); Magnesium 2.1 mg/dL (1.6-2.6); Potassium 3.4 mmol/L (3.5-5.1); Sodium 142 mmol/L (136-145); Total Protein 6.8 g/dL (6.4-8.2)
[2017-08-06 22:47] LABS: Red Cell Distribution Width 22.1 % (11.8-14.3)
[2017-08-06] MEDS ORDERED: diphenhdrAMINE HCL 50 MG/1 ML VL IV ONE (23:45)
[2017-08-07] MEDS ORDERED: SODIUM CHLORIDE 0.9% 2,000 ML IV ONE (01:45)
[2017-08-07] MEDS ORDERED: PIPERACILLIN-TAZO 4.5GM 50 ML IV ONE (01:45)
[2017-08-07] MEDS ORDERED: ONDANSETRON HCL 4 MG/2 ML VIAL IV PRN (02:00)
[2017-08-07] MEDS ORDERED: LORazepam 2MG/ML-1ML VIAL IV PRN (02:00)
[2017-08-07] MEDS ORDERED: PIPERACILLIN-TAZOB 3.375GM 50 ML IV ONE (02:00)
[2017-08-07] MEDS ORDERED: MORPHINE SULFATE 4 MG/ML SYR/VIAL IV PRN ×2 (02:00→02:15)
[2017-08-07] MEDS ORDERED: NITROGLYCERIN 0.4 MG SL TAB SL PRN (02:15)
[2017-08-07] MEDS ORDERED: HYDROmorphone HCL 2 MG/ML VL IV PRN (02:15)
[2017-08-07 02:25] VITALS: BP 103/70
[2017-08-07] MEDS ORDERED: POTASSIUM CHL 20 Meq TABLET PO ONE (03:00)
[2017-08-07] MEDS: MORPHINE SULFATE 4 MG/ML SYR/VIAL IV PRN ×2 (03:28→08:12)
[2017-08-07 03:45] LABS: Alcohol, Urine < 3.0 mg/dL (0-5); Amphetamine Screen, Urine NEGATIVE (NEGATIVE); Benzodiazephine Screen, Urine NEGATIVE (NEGATIVE); Cannabinoid Screen, Urine POSITIVE (NEGATIVE); Cocaine Screen, Urine NEGATIVE (NEGATIVE); Opiate Scree,Urine POSITIVE (NEGATIVE); Phencyclidine Screen, Urine NEGATIVE (NEGATIVE)
[2017-08-07] MEDS ORDERED: ZOLPIDEM TARTRATE 5 MG TAB PO PRN (03:45)
[2017-08-07 03:57] LABS: Barbiturate Scree,Urine NEGATIVE (NEGATIVE)
[2017-08-07 04:01] LABS: Urine Bacteria FEW /hpf (None Seen); Urine Blood Negative /uL (Negative); Urine Mucus FEW (None Seen); Urine Specific Gravity 1.017 (1.001-1.035); Urine WBC 2 /hpf (0 - 3)
[2017-08-07 04:23] LABS: Basophils # (auto) 0 uL; Basophils % (auto) 0.2 % (0.0-2.0); Eosinophils # (auto) 0 uL; Lymphocytes # (auto) 0.1 uL; Lymphocytes % (auto) 0.6 % (10.0-50.0)
[2017-08-07 04:26] LABS: Mean Corpuscular Hemoglobin 18.9 pg (28.0-32.0); Mean Corpuscular Hgb Conc. 31.4 g/dL (32.0-36.0); Mean Corpuscular Volume 60.4 fL (80.0-100.0); Monocytes # (auto) 0.4 uL; Monocytes % (auto) 2.1 % (0.0-12.0); Neutrophils # (auto) 17.1 uL; Neutrophils % (auto) 97.1 % (37.0-80.0); Platelet Count (auto) 116 10^3/uL (140-450); White Blood Cell 17.6 10^3/uL (4.4-10.8)
[2017-08-07 04:42] LABS: Calcium 7.4 mg/dL (8.5-10.1); Potassium 4.3 mmol/L (3.5-5.1)
[2017-08-07 05:36] LABS: Red Cell Distribution Width 21.3 % (11.8-14.3)
[2017-08-07] MEDS: ALBUTEROL SULF 2.5 MG/0.5ML(0.5%) NEB SOLN NEB SCH ×3 (06:05→18:01)
[2017-08-07] MEDS: IPRATROPIUM BROM 0.5 MG/2.5ML INH SOL NEB SCH ×3 (06:05→18:01)
[2017-08-07] MEDS: PIPERACILLIN-TAZOB 3.375GM 50 ML IV SCH ×3 (06:09→18:33)
[2017-08-07] MEDS: methylPREDNISolone SOD SUCC 40 MG/ML VL IV SCH ×2 (06:09→14:33)
[2017-08-07] MEDS ORDERED: HYDROXYCHLOROQUINE SULFATE 200 MG TAB PO SCH (10:00)
[2017-08-07] MEDS ORDERED: OSELTAMIVIR 75 MG CAP PO SCH (14:45)
[2017-08-07] MEDS ORDERED: HYDROcodone-ACET 5/325MG TAB PO PRN (15:00)
[2017-08-07] MEDS ORDERED: traMADol HCL 50 MG TAB PO PRN (16:15)
[2017-08-07 17:30] VITALS: BP 115/61
== END 2017-08-07 21:17 | disposition left against medical advice (07) | DRG 720 ==
LOC: EDBD 20:31 → ER 20:36 → OVERFLOW 20:37
PROVIDERS: ADMIT Nurse Practitioner Family; ATTEND Nurse Practitioner Family
DX: A41.9 Sepsis, unspecified organism (principal); M32.9 Systemic lupus erythematosus, unspecified; Z93.0 Tracheostomy status; I13.0 Hypertensive heart and chronic kidney disease with heart failure and stage 1 through stage 4 chronic kidney disease, or unspecified chronic kidney disease; I50.9 Heart failure, unspecified; J45.901 Unspecified asthma with (acute) exacerbation; K21.9 Gastro-esophageal reflux disease without esophagitis; E03.9 Hypothyroidism, unspecified; D64.9 Anemia, unspecified; Z53.21 Procedure and treatment not carried out due to patient leaving prior to being seen by health care provider; E87.6 Hypokalemia; F41.9 Anxiety disorder, unspecified; J10.1 Influenza due to other identified influenza virus with other respiratory manifestations; I25.10 Atherosclerotic heart disease of native coronary artery without angina pectoris; R73.9 Hyperglycemia, unspecified; J44.9 Chronic obstructive pulmonary disease, unspecified; N18.9 Chronic kidney disease, unspecified; T38.0X5A Adverse effect of glucocorticoids and synthetic analogues, initial encounter; Z79.51 Long term (current) use of inhaled steroids; Z79.83 Long term (current) use of bisphosphonates; Z82.49 Family history of ischemic heart disease and other diseases of the circulatory system; Z82.5 Family history of asthma and other chronic lower respiratory diseases; Z83.3 Family history of diabetes mellitus; Z85.038 Personal history of other malignant neoplasm of large intestine; Z86.711 Personal history of pulmonary embolism; Z79.899 Other long term (current) drug therapy
CPT/HCPCS: 36415; 36600; 71045; 80048; 80053; 80307; 81001; 82805; 83605; 83735; 83880; 84484; 85025; 86141; 87040; 87077; 87186; 87804; 93005; 94640; 96365; 96366; 96375; 96376; G0378; J1642; J2405; J2543

== ENCOUNTER 2017-08-21 13:14 | Inpatient (IN) | payer MEDICAID, OTHER ==
[~2017-08-21] VITALS: Ht 182.9 cm; Wt 77.0 kg
[2017-08-21] MEDS ORDERED: cefTRIAXone 1GM/10ml IVPUSH 10 ML IV ONE (13:45)
[2017-08-21] MEDS ORDERED: IPRATROPIUM BROM 0.5 MG/2.5ML INH SOL HHN ONE (13:45)
[2017-08-21] MEDS ORDERED: methylPREDNISolone SOD SUCC 125 MG/2 ML VL IV ONE (13:45)
[2017-08-21] MEDS ORDERED: ALBUTEROL SULF 2.5 MG/0.5ML(0.5%) NEB SOLN HHN ONE (13:45)
[2017-08-21] MEDS ORDERED: LEVALBUTEROL HCL 1.25 MG/3 ML NEB NEB STA (14:23)
[2017-08-21] MEDS ORDERED: MORPHINE SULFATE 4 MG/ML SYR/VIAL IV ONE (14:30)
[2017-08-21] MEDS ORDERED: ONDANSETRON HCL 4 MG/2 ML VIAL IV ONE (14:30)
[2017-08-21 14:52] LABS: Basophils # (auto) 0.1 uL; Basophils % (auto) 0.6 % (0.0-2.0); Eosinophils # (auto) 0.1 uL; Eosinophils % (auto) 0.5 % (0.0-7.0); Hematocrit 39.8 % (41.0-53.0); Hemoglobin 12.2 g/dL (13.5-17.5); Lymphocytes # (auto) 0.9 uL; Lymphocytes % (auto) 6.7 % (10.0-50.0); Mean Corpuscular Hemoglobin 18.8 pg (28.0-32.0); Mean Corpuscular Hgb Conc. 30.7 g/dL (32.0-36.0); Mean Corpuscular Volume 61.2 fL (80.0-100.0); Monocytes # (auto) 0.9 uL; Monocytes % (auto) 6.1 % (0.0-12.0); Neutrophils # (auto) 12.2 uL; Neutrophils % (auto) 86.1 % (37.0-80.0); Platelet Count (auto) 307 10^3/uL (140-450); Red Cell Distribution Width 22.1 % (11.8-14.3); White Blood Cell 14.2 10^3/uL (4.4-10.8)
[2017-08-21] MEDS ORDERED: SODIUM CHLORIDE 0.9% 1,000 ML IV ONE (15:00)
[2017-08-21 15:04] LABS: Lactic Acid w/Reflex 6.5 mmol/L (0.4-2.0)
[2017-08-21 15:13] LABS: Alanine Aminotransferase 23 U/L (16-61); Albumin 3.4 g/dL (3.4-5.0); Alkaline Phosphatase 74 U/L (45-117); Anion Gap 15 (5-15); Aspartate Aminotransferase 16 U/L (15-37); BUN/Creatinine Ratio 8.9; Bilirubin, Total 0.7 mg/dL (0.2-1.0); Blood Urea Nitrogen 10 mg/dL (7-18); Calcium 8.7 mg/dL (8.5-10.1); Carbon Dioxide 22 mmol/L (21-32); Chloride 99 mmol/L (98-107); GFR African American 98 mL/min; GFR Non-African American 81 mL/min; Glucose 184 mg/dL (74-106); Magnesium 1.9 mg/dL (1.6-2.6); Potassium 3.2 mmol/L (3.5-5.1); Sodium 136 mmol/L (136-145); Total Protein 7.5 g/dL (6.4-8.2)
[2017-08-21] MEDS ORDERED: diphenhdrAMINE HCL 50 MG/1 ML VL IV ONE (15:15)
[2017-08-21] MEDS ORDERED: diphenhdrAMINE HCL 50 MG/1 ML VL ONE (15:15)
[2017-08-21] MEDS ORDERED: POTASSIUM CHLORIDE 8 MEQ TAB PO ONE (18:00)
[2017-08-21] MEDS ORDERED: DEXTROSE (50%) 50ML SYRG IV PRN (18:00)
[2017-08-21] MEDS ORDERED: NITROGLYCERIN 0.4 MG SL TAB SL PRN (18:15)
[2017-08-21] MEDS ORDERED: DOCUSATE SOD 100 MG CAP PO PRN (18:15)
[2017-08-21] MEDS ORDERED: MORPHINE SULFATE 4 MG/ML SYR/VIAL IV PRN (18:15)
[2017-08-21] MEDS ORDERED: ONDANSETRON HCL 4 MG/2 ML VIAL IV PRN (18:15)
[2017-08-21] MEDS: LINEZOLID 600MG/300ML 300 ML IV SCH (18:15)
[2017-08-21] MEDS: LORATADINE 10 MG TAB PO SCH (18:15)
[2017-08-21] MEDS: ALBUTEROL SULF 2.5 MG/0.5ML(0.5%) NEB SOLN NEB SCH ×2 (18:28→22:15)
[2017-08-21] MEDS: IPRATROPIUM BROM 0.5 MG/2.5ML INH SOL NEB SCH ×2 (18:28→22:15)
[2017-08-21] MEDS: methylPREDNISolone SOD SUCC 40 MG/ML VL IV SCH (18:35)
[2017-08-21] MEDS: HYDROmorphone HCL 2 MG TAB PO PRN ×2 (18:35→22:48)
[2017-08-21 19:30] VITALS: BP 132/74
[2017-08-21] MEDS: ZOLPIDEM TARTRATE 5 MG TAB PO PRN (19:46)
[2017-08-21] MEDS: SODIUM CHLOR 0.9% PF (SALINE LOCK) 10ML VIAL IV SCH (21:56)
[2017-08-21] MEDS: MYCOPHENOLATE 250 MG CAP PO SCH (22:01)
[2017-08-21] MEDS: BUDESONIDE (INHALATION) 0.5 MG/2 ML NEB NEB SCH (22:15)
[2017-08-21] MEDS: ACCU-CHEK COMFORT CURVE STRIP VI SCH (22:58)
[2017-08-21] MEDS: InsuLIN REG 1unit/0.01ml Soln (100units/ml) SC SCH (22:59)
[2017-08-21 23:40] VITALS: BP 111/71
[2017-08-22] MEDS: diphenhdrAMINE HCL 25 MG CAP PO PRN ×4 (00:10→19:32)
[2017-08-22] MEDS: methylPREDNISolone SOD SUCC 40 MG/ML VL IV SCH ×4 (00:10→17:44)
[2017-08-22] MEDS: LINEZOLID 600MG/300ML 300 ML IV SCH (02:00)
[2017-08-22] MEDS: IPRATROPIUM BROM 0.5 MG/2.5ML INH SOL NEB SCH ×6 (03:18→22:20)
[2017-08-22] MEDS: HYDROmorphone HCL 2 MG TAB PO PRN ×5 (03:40→20:34)
[2017-08-22] MEDS: ALBUTEROL SULF 2.5 MG/0.5ML(0.5%) NEB SOLN NEB SCH ×6 (03:56→22:20)
[2017-08-22 04:00] VITALS: BP 115/75
[2017-08-22 05:27] LABS: Hemoglobin 10.8 g/dL (13.5-17.5); Mean Corpuscular Hemoglobin 18.7 pg (28.0-32.0); Mean Corpuscular Hgb Conc. 31.8 g/dL (32.0-36.0); Mean Corpuscular Volume 58.9 fL (80.0-100.0); Platelet Count (auto) 280 10^3/uL (140-450); Red Blood Cells 5.77 10^6/uL (4.5-5.90); White Blood Cell 11.5 10^3/uL (4.4-10.8)
[2017-08-22 05:38] LABS: Red Cell Distribution Width 21.9 % (11.8-14.3)
[2017-08-22 05:43] LABS: Basophils % (manual) 0 (0.0-2.0); Blast Cells 0; Eosinophils % (manual) 0 (0-7); Metamyelocytes % 0; Myelocytes % 0; Promyelocytes % 0; Reactive Lymphocytes 0
[2017-08-22 05:45] LABS: Lactic Acid w/Reflex 4.5 mmol/L (0.4-2.0)
[2017-08-22 05:46] LABS: Albumin 3.1 g/dL (3.4-5.0); BUN/Creatinine Ratio 13.1; Bilirubin, Total 0.3 mg/dL (0.2-1.0); Calcium 8.6 mg/dL (8.5-10.1); Potassium 4.7 mmol/L (3.5-5.1)
[2017-08-22] MEDS: ACCU-CHEK COMFORT CURVE STRIP VI SCH ×4 (06:36→22:12)
[2017-08-22] MEDS: SODIUM CHLOR 0.9% PF (SALINE LOCK) 10ML VIAL IV SCH ×3 (06:36→22:12)
[2017-08-22 06:37] LABS: Band Neutrophils % (manual) 3; Lymphocytes % (manual) 1 (10.0-50.0); Monocytes % (manual) 3 (0-12)
[2017-08-22] MEDS: InsuLIN REG 1unit/0.01ml Soln (100units/ml) SC SCH ×4 (06:37→22:28)
[2017-08-22] MEDS ORDERED: LINEZOLID 600MG/300ML 300 ML IV SCH (06:55)
[2017-08-22] MEDS: cefTRIAXone 1GM/10ml IVPUSH 10 ML IV SCH (08:43)
[2017-08-22] MEDS ORDERED: FUROSEMIDE 20 MG TAB PO SCH (10:00)
[2017-08-22] MEDS: MYCOPHENOLATE 250 MG CAP PO SCH ×2 (10:05→22:20)
[2017-08-22] MEDS: MULTIPLE VITAMIN TAB PO SCH (10:07)
[2017-08-22] MEDS: HYDROXYCHLOROQUINE SULFATE 200 MG TAB PO SCH (10:07)
[2017-08-22] MEDS: LORATADINE 10 MG TAB PO SCH (10:07)
[2017-08-22] MEDS: BUDESONIDE (INHALATION) 0.5 MG/2 ML NEB NEB SCH ×2 (10:35→18:34)
[2017-08-22 10:43] LABS: Urine Bacteria NONE SEEN /hpf (None Seen); Urine Blood Negative /uL (Negative); Urine Mucus FEW (None Seen); Urine Specific Gravity 1.034 (1.001-1.035); Urine WBC 2 /hpf (0 - 3)
[2017-08-22 12:00] VITALS: BP 131/78
[2017-08-22] MEDS: AZITHROMYCIN 250 MG TAB PO SCH (14:53)
[2017-08-22 16:40] VITALS: BP 125/80
[2017-08-22] MEDS: MORPHINE SULFATE 4 MG/ML SYR/VIAL IV PRN ×2 (17:55→22:28)
[2017-08-22] MEDS: ZOLPIDEM TARTRATE 5 MG TAB PO PRN (19:57)
[2017-08-22 22:00] VITALS: BP 116/78
[2017-08-23] MEDS: methylPREDNISolone SOD SUCC 40 MG/ML VL IV SCH ×4 (00:19→17:31)
[2017-08-23] MEDS: HYDROmorphone HCL 2 MG TAB PO PRN ×5 (00:20→16:41)
[2017-08-23] MEDS: ALBUTEROL SULF 2.5 MG/0.5ML(0.5%) NEB SOLN NEB SCH ×4 (02:05→13:44)
[2017-08-23] MEDS: IPRATROPIUM BROM 0.5 MG/2.5ML INH SOL NEB SCH ×4 (02:05→13:44)
[2017-08-23] MEDS: MORPHINE SULFATE 4 MG/ML SYR/VIAL IV PRN ×4 (02:41→14:55)
[2017-08-23] MEDS: diphenhdrAMINE HCL 25 MG CAP PO PRN ×3 (02:42→14:55)
[2017-08-23 05:00] VITALS: BP 131/71
[2017-08-23] MEDS: BUDESONIDE (INHALATION) 0.5 MG/2 ML NEB NEB SCH (06:14)
[2017-08-23] MEDS: SODIUM CHLOR 0.9% PF (SALINE LOCK) 10ML VIAL IV SCH ×2 (06:14→12:36)
[2017-08-23] MEDS: ACCU-CHEK COMFORT CURVE STRIP VI SCH ×3 (06:15→17:31)
[2017-08-23] MEDS: InsuLIN REG 1unit/0.01ml Soln (100units/ml) SC SCH ×3 (06:18→17:00)
[2017-08-23] MEDS: MULTIPLE VITAMIN TAB PO SCH (08:37)
[2017-08-23] MEDS: LORATADINE 10 MG TAB PO SCH (08:37)
[2017-08-23] MEDS: HYDROXYCHLOROQUINE SULFATE 200 MG TAB PO SCH (08:37)
[2017-08-23] MEDS: AZITHROMYCIN 250 MG TAB PO SCH (08:37)
[2017-08-23] MEDS: cefTRIAXone 1GM/10ml IVPUSH 10 ML IV SCH (08:38)
[2017-08-23] MEDS: MYCOPHENOLATE 250 MG CAP PO SCH (08:38)
[2017-08-23 09:00] VITALS: BP 109/63
[2017-08-23 12:35] VITALS: BP 130/80
[2017-08-23 16:30] VITALS: BP 135/85
[2017-08-27] MEDS ORDERED: ALENDRONATE SODIUM 10 MG TAB PO SCH (07:00)
== END 2017-08-23 18:00 | disposition home or self-care (01) | DRG 720 ==
LOC: ER 13:14 → OVERFLOW 13:15 → ICU CENTRL 23:10 → DOU IN ICU 23:19 → TELE-EAST 08-22 15:02
PROVIDERS: ADMIT Internal Medicine; ATTEND Internal Medicine
DX: A41.9 Sepsis, unspecified organism (principal); E11.21 Type 2 diabetes mellitus with diabetic nephropathy; J44.0 Chronic obstructive pulmonary disease with (acute) lower respiratory infection; I13.0 Hypertensive heart and chronic kidney disease with heart failure and stage 1 through stage 4 chronic kidney disease, or unspecified chronic kidney disease; J45.901 Unspecified asthma with (acute) exacerbation; I50.42 Chronic combined systolic (congestive) and diastolic (congestive) heart failure; J44.1 Chronic obstructive pulmonary disease with (acute) exacerbation; J20.9 Acute bronchitis, unspecified; I25.10 Atherosclerotic heart disease of native coronary artery without angina pectoris; D50.9 Iron deficiency anemia, unspecified; E03.9 Hypothyroidism, unspecified; E11.22 Type 2 diabetes mellitus with diabetic chronic kidney disease; E87.6 Hypokalemia; F32.9 Major depressive disorder, single episode, unspecified; F41.9 Anxiety disorder, unspecified; K21.9 Gastro-esophageal reflux disease without esophagitis; M06.9 Rheumatoid arthritis, unspecified; J11.1 Influenza due to unidentified influenza virus with other respiratory manifestations; M81.0 Age-related osteoporosis without current pathological fracture; N18.2 Chronic kidney disease, stage 2 (mild); G47.00 Insomnia, unspecified; M32.9 Systemic lupus erythematosus, unspecified; Z82.49 Family history of ischemic heart disease and other diseases of the circulatory system; Z86.718 Personal history of other venous thrombosis and embolism; Z87.442 Personal history of urinary calculi; Z87.891 Personal history of nicotine dependence; Z92.21 Personal history of antineoplastic chemotherapy; Z83.3 Family history of diabetes mellitus
CPT/HCPCS: 36415; 36600; 71045; 80053; 81001; 82805; 82962; 83036; 83605; 83735; 83880; 84484; 85007; 85025; 85027; 87040; 87077; 87081; 87086; 87186; 93005; 94640; 94761; 96361; 96374; 96375; J1642; J1815; J2405; J7517

== ENCOUNTER 2018-01-31 15:36 | Observation (INO) | payer OTHER ==
[~2018-01-31] VITALS: Ht 182.9 cm; Wt 77.1 kg
[~2018-01-31 15:36] MED LIST changes: +HYDR-4441 PO; -HYDR200T PO
[2018-01-31 16:00] VITALS: BP 148/54
[2018-01-31 17:09] LABS: Albumin 3.5 g/dL (3.4-5.0); BUN/Creatinine Ratio 16.9; Bilirubin, Total 0.4 mg/dL (0.2-1.0); Calcium 8.1 mg/dL (8.5-10.1); Potassium 4.9 mmol/L (3.5-5.1); Total Protein 7.5 g/dL (6.4-8.2)
[2018-01-31] MEDS ORDERED: methylPREDNISolone SOD SUCC 125 MG/2 ML VL IV ONE (18:15)
[2018-01-31] MEDS ORDERED: ALBUTEROL SULF 2.5 MG/0.5ML(0.5%) NEB SOLN HHN ONE (18:15)
[2018-01-31] MEDS ORDERED: IPRATROPIUM BROM 0.5 MG/2.5ML INH SOL HHN ONE (18:15)
[2018-01-31 19:34] LABS: Eosinophils # (auto) 0.2 uL; Hemoglobin 12.2 g/dL (13.5-17.5); Lymphocytes # (auto) 0.5 uL; Lymphocytes % (auto) 2.4 % (10.0-50.0); Mean Corpuscular Hemoglobin 17.6 pg (28.0-32.0)
[2018-01-31 19:36] LABS: Basophils # (auto) 0 uL; Basophils % (auto) 0.1 % (0.0-2.0); Hematocrit 40.1 % (41.0-53.0); Mean Corpuscular Hgb Conc. 30.3 g/dL (32.0-36.0); Mean Corpuscular Volume 57.9 fL (80.0-100.0); Monocytes # (auto) 0.5 uL; Monocytes % (auto) 2.6 % (0.0-12.0); Neutrophils # (auto) 17.6 uL; Neutrophils % (auto) 93.9 % (37.0-80.0); Platelet Count (auto) 220 10^3/uL (140-450); Red Blood Cells 6.92 10^6/uL (4.5-5.90); White Blood Cell 18.7 10^3/uL (4.4-10.8)
[2018-01-31 19:47] LABS: Red Cell Distribution Width 23.6 % (11.8-14.3)
[2018-01-31 20:13] LABS: Lactic Acid w/Reflex 2.3 mmol/L (0.4-2.0)
[2018-01-31] MEDS ORDERED: cefTRIAXone 1GM/10ml IVPUSH 10 ML IV ONE (20:15)
== END 2018-01-31 19:30 | disposition left against medical advice (07) | DRG 141 ==
LOC: ER 15:36 → OVERFLOW 15:37 → ER 19:30
PROVIDERS: ADMIT Family Medicine; ATTEND Family Medicine
DX: J45.41 Moderate persistent asthma with (acute) exacerbation (principal); D64.9 Anemia, unspecified; J20.8 Acute bronchitis due to other specified organisms; K21.9 Gastro-esophageal reflux disease without esophagitis; I12.9 Hypertensive chronic kidney disease with stage 1 through stage 4 chronic kidney disease, or unspecified chronic kidney disease; N18.9 Chronic kidney disease, unspecified; F41.9 Anxiety disorder, unspecified; Z87.891 Personal history of nicotine dependence; Z82.49 Family history of ischemic heart disease and other diseases of the circulatory system; Z83.3 Family history of diabetes mellitus
CPT/HCPCS: 36415; 71046; 80053; 83605; 83735; 85025; 87040; 99285; G0378

== ENCOUNTER 2018-02-02 17:31 | Emergency (ER) | payer OTHER ==
[~2018-02-02] VITALS: Ht 182.9 cm; Wt 77.1 kg
[2018-02-02 17:44] VITALS: BP 114/76
[2018-02-02 18:31] LABS: Albumin 3.2 g/dL (3.4-5.0); BUN/Creatinine Ratio 15.7; Potassium 4.2 mmol/L (3.5-5.1)
[2018-02-02 18:34] LABS: Bilirubin, Total 0.4 mg/dL (0.2-1.0); Total Protein 7.2 g/dL (6.4-8.2)
[2018-02-02 18:52] LABS: Basophils # (auto) 0 uL; Basophils % (auto) 0.6 % (0.0-2.0); Eosinophils # (auto) 0.3 uL; Eosinophils % (auto) 3.6 % (0.0-7.0); Hematocrit 36.8 % (41.0-53.0); Hemoglobin 11.5 g/dL (13.5-17.5); Lymphocytes # (auto) 1.5 uL; Lymphocytes % (auto) 17.1 % (10.0-50.0); Mean Corpuscular Hemoglobin 17.8 pg (28.0-32.0); Mean Corpuscular Hgb Conc. 31.1 g/dL (32.0-36.0); Mean Corpuscular Volume 57.3 fL (80.0-100.0); Monocytes % (auto) 11.6 % (0.0-12.0); Neutrophils # (auto) 5.9 uL; Neutrophils % (auto) 67.1 % (37.0-80.0); Nucleated Red Blood Cells % 0.1 %; Platelet Count (auto) 339 10^3/uL (140-450); Red Blood Cells 6.42 10^6/uL (4.5-5.90); Red Cell Distribution Width 22.9 % (11.8-14.3); White Blood Cell 8.7 10^3/uL (4.4-10.8)
== END 2018-02-02 18:51 | disposition left against medical advice (07) ==
LOC: ER 17:35
DX: K92.0 Hematemesis (principal); Z53.21 Procedure and treatment not carried out due to patient leaving prior to being seen by health care provider
CPT/HCPCS: 36415; 80053; 85025

== ENCOUNTER 2018-02-04 18:54 | Inpatient (IN) | payer OTHER ==
[~2018-02-04] VITALS: Ht 180.3 cm; Wt 79.0 kg
[2018-02-04] MEDS ORDERED: ALBUTEROL SULF 2.5 MG/0.5ML(0.5%) NEB SOLN HHN ONE (19:45)
[2018-02-04] MEDS ORDERED: IPRATROPIUM BROM 0.5 MG/2.5ML INH SOL HHN ONE (19:45)
[2018-02-04] MEDS ORDERED: methylPREDNISolone SOD SUCC 125 MG/2 ML VL IV ONE (19:45)
[2018-02-04 20:37] LABS: Alanine Aminotransferase 24 U/L (16-61); Albumin 3.3 g/dL (3.4-5.0); Alkaline Phosphatase 70 U/L (45-117); Anion Gap 9 (5-15); Aspartate Aminotransferase 15 U/L (15-37); BUN/Creatinine Ratio 12.2; Bilirubin, Total 0.3 mg/dL (0.2-1.0); Blood Urea Nitrogen 9 mg/dL (7-18); Calcium 8.4 mg/dL (8.5-10.1); Carbon Dioxide 24 mmol/L (21-32); Chloride 109 mmol/L (98-107); GFR African American 159 mL/min; GFR Non-African American 131 mL/min; Glucose 106 mg/dL (74-106); Magnesium 2.6 mg/dL (1.6-2.6); Potassium 3.7 mmol/L (3.5-5.1); Sodium 142 mmol/L (136-145); Total Protein 7.1 g/dL (6.4-8.2)
[2018-02-04 20:53] LABS: Lymphocytes # (auto) 1.5 uL; Monocytes # (auto) 0.6 uL; Monocytes % (auto) 7.1 % (0.0-12.0); Red Blood Cells 6.13 10^6/uL (4.5-5.90)
[2018-02-04 20:55] LABS: Basophils # (auto) 0 uL; Basophils % (auto) 0.5 % (0.0-2.0); Eosinophils # (auto) 0.4 uL; Eosinophils % (auto) 4.6 % (0.0-7.0); Hematocrit 35.3 % (41.0-53.0); Hemoglobin 10.8 g/dL (13.5-17.5); Lymphocytes % (auto) 17.9 % (10.0-50.0); Mean Corpuscular Hemoglobin 17.7 pg (28.0-32.0); Mean Corpuscular Hgb Conc. 30.7 g/dL (32.0-36.0); Mean Corpuscular Volume 57.6 fL (80.0-100.0); Neutrophils # (auto) 5.9 uL; Neutrophils % (auto) 69.9 % (37.0-80.0); Nucleated Red Blood Cells % 0.1 %; Platelet Count (auto) 342 10^3/uL (140-450); White Blood Cell 8.5 10^3/uL (4.4-10.8)
[2018-02-04 21:05] LABS: Red Cell Distribution Width 23.6 % (11.8-14.3)
[2018-02-04] MEDS ORDERED: HYDROmorphone HCL 2 MG TAB PO ONE (21:30)
[2018-02-04] MEDS ORDERED: cefTRIAXone 1GM/10ml IVPUSH 10 ML IV ONE (21:30)
[2018-02-04] MEDS ORDERED: SODIUM CHLORIDE 0.9% 1,000 ML IV ONE (21:30)
[2018-02-04] MEDS ORDERED: ZOLPIDEM TARTRATE 5 MG TAB PO PRN (23:30)
[2018-02-04] MEDS ORDERED: ONDANSETRON HCL 4 MG/2 ML VIAL IV PRN (23:30)
[2018-02-05] VITALS (7 sets, daily range): BP systolic 111–127; BP diastolic 62–90
[2018-02-05] MEDS: IPRATROPIUM BROM 0.5 MG/2.5ML INH SOL NEB SCH ×6 (02:55→22:54)
[2018-02-05] MEDS: ALBUTEROL SULF 2.5 MG/0.5ML(0.5%) NEB SOLN NEB SCH ×6 (02:55→22:54)
[2018-02-05] MEDS: HYDROmorphone HCL 2 MG/ML VL IV PRN ×2 (03:17→09:01)
[2018-02-05 05:44] LABS: Basophils # (auto) 0 uL; Basophils % (auto) 0.1 % (0.0-2.0); Eosinophils # (auto) 0 uL; Eosinophils % (auto) 0.1 % (0.0-7.0); Lymphocytes # (auto) 0.6 uL; Mean Corpuscular Hemoglobin 17.7 pg (28.0-32.0); Mean Corpuscular Volume 56.2 fL (80.0-100.0); Monocytes # (auto) 0.1 uL; Nucleated Red Blood Cells % 0.1 %
[2018-02-05 05:57] LABS: Hematocrit 31.2 % (41.0-53.0); Hemoglobin 9.8 g/dL (13.5-17.5); Lymphocytes % (auto) 9.5 % (10.0-50.0); Mean Corpuscular Hgb Conc. 31.4 g/dL (32.0-36.0); Monocytes % (auto) 1.3 % (0.0-12.0); Neutrophils # (auto) 5.4 uL; Platelet Count (auto) 310 10^3/uL (140-450); Red Blood Cells 5.55 10^6/uL (4.5-5.90); White Blood Cell 6.1 10^3/uL (4.4-10.8)
[2018-02-05 06:01] LABS: Red Cell Distribution Width 22.6 % (11.8-14.3)
[2018-02-05 06:03] LABS: BUN/Creatinine Ratio 14.6; Calcium 8.6 mg/dL (8.5-10.1); Potassium 4.4 mmol/L (3.5-5.1)
[2018-02-05] MEDS ORDERED: methylPREDNISolone SOD SUCC 40 MG/ML VL IV SCH (08:00)
[2018-02-05] MEDS: HYDROXYCHLOROQUINE SULFATE 200 MG TAB PO SCH (10:31)
[2018-02-05] MEDS: PANTOPRAZOLE 40 MG/10 ML VIAL IV SCH ×2 (10:31→21:55)
[2018-02-05] MEDS: HYDROmorphone HCL 2 MG TAB PO PRN ×3 (13:22→21:55)
[2018-02-05] MEDS: MONTELUKAST SODIUM 10 MG TAB PO SCH (21:55)
[2018-02-06] MEDS: HYDROmorphone HCL 2 MG TAB PO PRN ×6 (02:06→23:46)
[2018-02-06] MEDS: ALBUTEROL SULF 2.5 MG/0.5ML(0.5%) NEB SOLN NEB SCH ×6 (02:52→22:47)
[2018-02-06] MEDS: IPRATROPIUM BROM 0.5 MG/2.5ML INH SOL NEB SCH ×6 (02:52→22:47)
[2018-02-06 05:00] VITALS: BP 119/68
[2018-02-06] MEDS ORDERED: LACTULOSE 20Gm/30ML SOLN PO ONE (08:15)
[2018-02-06] MEDS: predniSONE 20 MG TAB PO SCH (10:32)
[2018-02-06] MEDS: PANTOPRAZOLE 40 MG/10 ML VIAL IV SCH ×2 (10:32→22:00)
[2018-02-06] MEDS: HYDROXYCHLOROQUINE SULFATE 200 MG TAB PO SCH (10:32)
[2018-02-06 10:44] LABS: Basophils # (auto) 0 uL; Basophils % (auto) 0.2 % (0.0-2.0); Eosinophils # (auto) 0.2 uL; Hematocrit 31.9 % (41.0-53.0); Lymphocytes # (auto) 1.4 uL; Monocytes # (auto) 0.6 uL
[2018-02-06 10:46] LABS: Eosinophils % (auto) 1.5 % (0.0-7.0); Hemoglobin 9.9 g/dL (13.5-17.5); Lymphocytes % (auto) 13.5 % (10.0-50.0); Mean Corpuscular Hemoglobin 17.3 pg (28.0-32.0); Mean Corpuscular Volume 55.9 fL (80.0-100.0); Monocytes % (auto) 5.5 % (0.0-12.0); Neutrophils # (auto) 8.4 uL; Neutrophils % (auto) 79.3 % (37.0-80.0); Nucleated Red Blood Cells % 0.1 %; Platelet Count (auto) 346 10^3/uL (140-450); Red Cell Distribution Width 22.9 % (11.8-14.3); White Blood Cell 10.6 10^3/uL (4.4-10.8)
[2018-02-06 10:59] LABS: BUN/Creatinine Ratio 21.3; Calcium 7.9 mg/dL (8.5-10.1); Potassium 3.4 mmol/L (3.5-5.1)
[2018-02-06 13:00] VITALS: BP 123/75
[2018-02-06 16:30] LABS: INR 0.93 (0.9-1.15)
[2018-02-06 17:09] VITALS: BP 126/89
[2018-02-06 22:00] VITALS: BP 134/88
[2018-02-06] MEDS: MONTELUKAST SODIUM 10 MG TAB PO SCH (22:00)
[2018-02-07] MEDS: ALBUTEROL SULF 2.5 MG/0.5ML(0.5%) NEB SOLN NEB SCH ×3 (02:00→09:42)
[2018-02-07] MEDS: IPRATROPIUM BROM 0.5 MG/2.5ML INH SOL NEB SCH ×3 (02:00→09:42)
[2018-02-07] MEDS: HYDROmorphone HCL 2 MG TAB PO PRN ×3 (03:45→12:41)
[2018-02-07] MEDS ORDERED: D5W/SOD CHL 0.45%/KCL 20MEQ 1,000 ML IV ONE (09:30)
[2018-02-07 09:40] VITALS: BP 125/72
[2018-02-07] MEDS: HYDROXYCHLOROQUINE SULFATE 200 MG TAB PO SCH (09:40)
[2018-02-07] MEDS: predniSONE 20 MG TAB PO SCH (09:40)
[2018-02-07] MEDS: PANTOPRAZOLE 40 MG/10 ML VIAL IV SCH (09:40)
[2018-02-07 11:25] LABS: Basophils # (auto) 0 uL; Basophils % (auto) 0.2 % (0.0-2.0); Eosinophils # (auto) 0.2 uL; Hemoglobin 10.6 g/dL (13.5-17.5); Monocytes # (auto) 0.4 uL
[2018-02-07 11:27] LABS: Hematocrit 33.5 % (41.0-53.0); Lymphocytes # (auto) 0.8 uL; Lymphocytes % (auto) 9.6 % (10.0-50.0); Mean Corpuscular Hemoglobin 17.8 pg (28.0-32.0); Mean Corpuscular Hgb Conc. 31.8 g/dL (32.0-36.0); Mean Corpuscular Volume 55.9 fL (80.0-100.0); Neutrophils # (auto) 7.3 uL; Neutrophils % (auto) 83.2 % (37.0-80.0); Platelet Count (auto) 423 10^3/uL (140-450); Red Blood Cells 5.99 10^6/uL (4.5-5.90); White Blood Cell 8.7 10^3/uL (4.4-10.8)
[2018-02-07 11:38] LABS: Red Cell Distribution Width 22.9 % (11.8-14.3)
[2018-02-07 11:45] LABS: BUN/Creatinine Ratio 17.6; Calcium 8.6 mg/dL (8.5-10.1); Potassium 3.5 mmol/L (3.5-5.1)
[2018-02-07 12:30] VITALS: BP 125/73
[2018-02-07] MEDS ORDERED: MIDAZOLAM HCL 1MG/1ML-2 ML VIAL ONE (13:17)
[2018-02-07] MEDS ORDERED: PROPOFOL 10 MG/ML 20 ML IV ONE (13:17)
[2018-02-07] MEDS ORDERED: fentaNYL CITRATE 100 MCG/2 ML VL ONE (13:17)
[2018-02-07] MEDS ORDERED: LIDOCAINE 1% (LOCAL ANESTH.) PF 5ml SDV ONE (13:27)
[2018-02-07] MEDS ORDERED: HEPARIN 1,000 UNITS/ml 1ML VIAL ONE (13:27)
[2018-02-07] MEDS ORDERED: ceFAZolin 1GM VL ONE (13:27)
[2018-02-07] MEDS ORDERED: HEPARIN SODIUM (PORCINE) 5000 UNITS/ML 1ML VIAL ONE (13:27)
[2018-02-07] MEDS ORDERED: ceFAZolin 1GM/50ML 50 ML IV ONE (13:44)
[2018-02-07] MEDS ORDERED: hydrALAZINE HCL 20 MG/ML VL IV PRN (14:45)
[2018-02-07] MEDS ORDERED: ePHEDrine SULFATE 50 MG/ML AMP IV PRN (14:45)
[2018-02-07] MEDS ORDERED: ONDANSETRON HCL 4 MG/2 ML VIAL IV ONE (14:45)
[2018-02-07] MEDS ORDERED: fentaNYL CITRATE 100 MCG/2 ML VL IV ONE (15:00)
[2018-02-07 15:30] VITALS: BP 127/85
== END 2018-02-07 16:10 | disposition home or self-care (01) | DRG 254 ==
LOC: EDBD 18:54 → ER 19:02 → TELE 19:03 → TELE-WESTW 02-05 01:35
PROVIDERS: ADMIT Nurse Practitioner Family; ATTEND Internal Medicine
PROC: 02HV33Z Insertion of Infusion Device into Superior Vena Cava, Percutaneous Approach (ICD-10-PCS; 2018-02-07)
PROC: 0DJ08ZZ Inspection of Upper Intestinal Tract, Via Natural or Artificial Opening Endoscopic (ICD-10-PCS; principal; 2018-02-07 13:20)
PROC: 0JH60WZ Insertion of Totally Implantable Vascular Access Device into Chest Subcutaneous Tissue and Fascia, Open Approach (ICD-10-PCS; 2018-02-07 13:20)
DX: K92.1 Melena (principal); M32.9 Systemic lupus erythematosus, unspecified; I50.9 Heart failure, unspecified; I13.0 Hypertensive heart and chronic kidney disease with heart failure and stage 1 through stage 4 chronic kidney disease, or unspecified chronic kidney disease; K21.9 Gastro-esophageal reflux disease without esophagitis; F12.90 Cannabis use, unspecified, uncomplicated; N18.9 Chronic kidney disease, unspecified; G89.4 Chronic pain syndrome; F41.9 Anxiety disorder, unspecified; J44.9 Chronic obstructive pulmonary disease, unspecified; Z79.52 Long term (current) use of systemic steroids; Z82.49 Family history of ischemic heart disease and other diseases of the circulatory system; Z83.3 Family history of diabetes mellitus; Z86.711 Personal history of pulmonary embolism; Z87.891 Personal history of nicotine dependence; Z86.718 Personal history of other venous thrombosis and embolism
CPT/HCPCS: 36415; 43235; 71045; 74176; 76705; 80048; 80053; 83735; 83880; 84484; 85025; 85610; 86850; 86900; 86901; 93005; 94640; 94761; 96374; 96375; C1788; C9113; J0690; J0696; J2250; J2704

== ENCOUNTER 2018-02-11 03:13 | Inpatient (IN) | payer OTHER ==
[~2018-02-11] VITALS: Ht 182.9 cm; Wt 77.8 kg
[2018-02-11 04:18] LABS: Hemoglobin 11.6 g/dL (13.5-17.5)
[2018-02-11 04:19] LABS: Basophils # (auto) 0.1 uL; Basophils % (auto) 1.1 % (0.0-2.0); Eosinophils # (auto) 0.2 uL; Eosinophils % (auto) 1.8 % (0.0-7.0); Hematocrit 36.7 % (41.0-53.0); Lymphocytes % (auto) 7.1 % (10.0-50.0); Mean Corpuscular Hemoglobin 17.6 pg (28.0-32.0); Mean Corpuscular Hgb Conc. 31.6 g/dL (32.0-36.0); Mean Corpuscular Volume 55.6 fL (80.0-100.0); Monocytes % (auto) 7.7 % (0.0-12.0); Neutrophils % (auto) 82.3 % (37.0-80.0); Platelet Count (auto) 231 10^3/uL (140-450); Red Blood Cells 6.61 10^6/uL (4.5-5.90); White Blood Cell 13.4 10^3/uL (4.4-10.8)
[2018-02-11 04:25] LABS: Red Cell Distribution Width 22.3 % (11.8-14.3)
[2018-02-11 04:39] LABS: Albumin 3.2 g/dL (3.4-5.0); BUN/Creatinine Ratio 18.4; Bilirubin, Total 1.1 mg/dL (0.2-1.0); Calcium 8.5 mg/dL (8.5-10.1); Magnesium 2.5 mg/dL (1.6-2.6); Potassium 3.5 mmol/L (3.5-5.1); Total Protein 6.9 g/dL (6.4-8.2)
[2018-02-11] MEDS ORDERED: IPRATROPIUM BROM 0.5 MG/2.5ML INH SOL NEB ONE (07:15)
[2018-02-11] MEDS ORDERED: methylPREDNISolone SOD SUCC 125 MG/2 ML VL IV ONE (07:15)
[2018-02-11] MEDS ORDERED: PANTOPRAZOLE 40 MG/10 ML VIAL IV ONE (07:15)
[2018-02-11] MEDS ORDERED: ALBUTEROL SULF 2.5 MG/0.5ML(0.5%) NEB SOLN NEB ONE (07:15)
[2018-02-11] MEDS ORDERED: ONDANSETRON HCL 4 MG/2 ML VIAL ONE (07:38)
[2018-02-11] MEDS ORDERED: ONDANSETRON HCL 4 MG/2 ML VIAL IV ONE (07:45)
[2018-02-11] MEDS ORDERED: diphenhdrAMINE HCL 50 MG/1 ML VL IV ONE (07:45)
[2018-02-11] MEDS ORDERED: traMADol HCL 50 MG TAB PO PRN (08:15)
[2018-02-11] MEDS ORDERED: NITROGLYCERIN 0.4 MG SL TAB SL PRN (08:15)
[2018-02-11] MEDS ORDERED: PROMETHAZINE HCL 25 MG/ML 1ML IV PRN (08:15)
[2018-02-11] MEDS ORDERED: ALBUTEROL SULF 2.5 MG/0.5ML(0.5%) NEB SOLN NEB PRN (08:15)
[2018-02-11] MEDS ORDERED: NALBUPHINE HCL 10 MG/1ml INJECTION IV PRN (08:15)
[2018-02-11] MEDS ORDERED: TEMAZEPAM 15 MG CAP PO PRN (08:15)
[2018-02-11] MEDS ORDERED: MORPHINE SULF INJ 2 MG/ML SYRINGE 1ML IV PRN (08:15)
[2018-02-11] MEDS ORDERED: LORazepam 0.5 MG TAB PO PRN (08:15)
[2018-02-11] MEDS ORDERED: LACTULOSE 20Gm/30ML SOLN PO PRN (08:15)
[2018-02-11 09:00] VITALS: BP 104/66
[2018-02-11 09:11] VITALS: BP 136/75
[2018-02-11] MEDS: AZITHROMYCIN 500MG/ 250ML 250 ML IV SCH (10:02)
[2018-02-11] MEDS ORDERED: HYDROmorphone HCL 2 MG TAB PO PRN (10:45)
[2018-02-11] MEDS: HYDROmorphone HCL 2 MG TAB PO PRN ×3 (11:21→20:01)
[2018-02-11 11:24] LABS: Hemoglobin 11.7 g/dL (13.5-17.5)
[2018-02-11] MEDS ORDERED: methylPREDNISolone SOD SUCC 40 MG/ML VL IV SCH (12:00)
[2018-02-11] MEDS: ALBUTEROL SULF 2.5 MG/0.5ML(0.5%) NEB SOLN NEB SCH ×2 (12:01→18:19)
[2018-02-11] MEDS: IPRATROPIUM BROM 0.5 MG/2.5ML INH SOL NEB SCH ×2 (12:02→18:19)
[2018-02-11 12:11] LABS: Urine Bacteria NONE SEEN /hpf (None Seen); Urine Blood TRACE /uL (Negative); Urine Mucus FEW (None Seen); Urine Specific Gravity 1.026 (1.001-1.035); Urine WBC 1 /hpf (0 - 3)
[2018-02-11 13:00] VITALS: BP 123/65
[2018-02-11] MEDS: SODIUM CHLOR 0.9% PF (SALINE LOCK) 10ML VIAL/SYR IV SCH ×2 (13:07→21:54)
[2018-02-11 16:15] VITALS: BP 115/74
[2018-02-11] MEDS: BUDESONIDE (INHALATION) 0.5 MG/2 ML NEB NEB SCH (18:19)
[2018-02-11 20:31] LABS: Hematocrit 34.7 % (41.0-53.0); Hemoglobin 10.7 g/dL (13.5-17.5)
[2018-02-11] MEDS: MYCOPHENOLATE 250 MG CAP PO SCH (21:55)
[2018-02-11] MEDS: methylPREDNISolone SOD SUCC 40 MG/ML VL IV SCH (21:55)
[2018-02-11 21:57] VITALS: BP 122/85
[2018-02-11] MEDS: ZOLPIDEM TARTRATE 5 MG TAB PO PRN (21:58)
[2018-02-11] MEDS ORDERED: PATIENTS OWN MEDICATION IN SCH (22:00)
[2018-02-12] MEDS: HYDROmorphone HCL 2 MG TAB PO PRN ×6 (00:01→20:49)
[2018-02-12 00:19] LABS: Hematocrit 35.3 % (41.0-53.0)
[2018-02-12 05:00] VITALS: BP 116/77
[2018-02-12 05:36] LABS: Albumin 3.3 g/dL (3.4-5.0); BUN/Creatinine Ratio 19.8; Bilirubin, Total 0.5 mg/dL (0.2-1.0); Calcium 8.5 mg/dL (8.5-10.1); Potassium 4.4 mmol/L (3.5-5.1)
[2018-02-12] MEDS: BUDESONIDE (INHALATION) 0.5 MG/2 ML NEB NEB SCH ×2 (06:16→19:08)
[2018-02-12] MEDS: ALBUTEROL SULF 2.5 MG/0.5ML(0.5%) NEB SOLN NEB SCH ×5 (06:16→23:37)
[2018-02-12] MEDS: IPRATROPIUM BROM 0.5 MG/2.5ML INH SOL NEB SCH ×5 (06:16→23:37)
[2018-02-12] MEDS: SODIUM CHLOR 0.9% PF (SALINE LOCK) 10ML VIAL/SYR IV SCH ×3 (06:41→22:14)
[2018-02-12] MEDS: methylPREDNISolone SOD SUCC 40 MG/ML VL IV SCH ×2 (09:49→22:05)
[2018-02-12] MEDS: HYDROXYCHLOROQUINE SULFATE 200 MG TAB PO SCH (09:49)
[2018-02-12] MEDS: PANTOPRAZOLE 40 MG TAB PO SCH (09:49)
[2018-02-12] MEDS: AZITHROMYCIN 500MG/ 250ML 250 ML IV SCH (09:50)
[2018-02-12] MEDS: MYCOPHENOLATE 250 MG CAP PO SCH ×2 (10:25→22:05)
[2018-02-12 13:00] VITALS: BP 93/57
[2018-02-12] MEDS: diphenhdrAMINE HCL 50 MG/1 ML VL IV PRN ×2 (14:04→20:50)
[2018-02-12 14:57] LABS: Hematocrit 32.2 % (41.0-53.0); Mean Corpuscular Hemoglobin 17.2 pg (28.0-32.0); Mean Corpuscular Hgb Conc. 31.1 g/dL (32.0-36.0); Mean Corpuscular Volume 55.3 fL (80.0-100.0); Platelet Count (auto) 228 10^3/uL (140-450); Red Blood Cells 5.83 10^6/uL (4.5-5.90); Red Cell Distribution Width 22.7 % (11.8-14.3); White Blood Cell 27.8 10^3/uL (4.4-10.8)
[2018-02-12 15:02] LABS: Basophils % (manual) 0 (0.0-2.0); Blast Cells 0; Eosinophils % (manual) 0 (0-7); Promyelocytes % 0; Reactive Lymphocytes 0
[2018-02-12 16:01] LABS: Band Neutrophils % (manual) 8; Lymphocytes % (manual) 2 (10.0-50.0); Metamyelocytes % 1; Monocytes % (manual) 6 (0-12); Myelocytes % 1
[2018-02-12 18:20] LABS: Hemoglobin 10.4 g/dL (13.5-17.5)
[2018-02-12 21:30] VITALS: BP 116/72
[2018-02-12] MEDS: ZOLPIDEM TARTRATE 5 MG TAB PO PRN (22:05)
[2018-02-13] VITALS (7 sets, daily range): BP systolic 99–123; BP diastolic 54–81
[2018-02-13] MEDS: HYDROmorphone HCL 2 MG TAB PO PRN ×6 (00:51→22:42)
[2018-02-13] MEDS: BUDESONIDE (INHALATION) 0.5 MG/2 ML NEB NEB SCH ×2 (01:03→07:05)
[2018-02-13] MEDS: diphenhdrAMINE HCL 50 MG/1 ML VL IV PRN ×4 (02:50→21:15)
[2018-02-13] MEDS: SODIUM CHLOR 0.9% PF (SALINE LOCK) 10ML VIAL/SYR IV SCH ×3 (06:02→21:14)
[2018-02-13 06:20] LABS: Eosinophils # (auto) 0 uL; Mean Corpuscular Hemoglobin 17.4 pg (28.0-32.0); Mean Corpuscular Hgb Conc. 31.6 g/dL (32.0-36.0); Neutrophils # (auto) 17.4 uL; White Blood Cell 19.8 10^3/uL (4.4-10.8)
[2018-02-13 06:22] LABS: Basophils # (auto) 0.1 uL; Basophils % (auto) 0.7 % (0.0-2.0); Hematocrit 30.2 % (41.0-53.0); Hemoglobin 9.6 g/dL (13.5-17.5); Lymphocytes # (auto) 1.1 uL; Lymphocytes % (auto) 5.3 % (10.0-50.0); Mean Corpuscular Volume 54.9 fL (80.0-100.0); Monocytes # (auto) 1.2 uL; Monocytes % (auto) 6.2 % (0.0-12.0); Neutrophils % (auto) 87.8 % (37.0-80.0)
[2018-02-13 06:36] LABS: BUN/Creatinine Ratio 17.6; Calcium 8.6 mg/dL (8.5-10.1); Potassium 4.1 mmol/L (3.5-5.1)
[2018-02-13 06:54] LABS: Red Cell Distribution Width 22.2 % (11.8-14.3)
[2018-02-13 06:56] LABS: Platelet Count (auto) 205 10^3/uL (140-450)
[2018-02-13] MEDS: IPRATROPIUM BROM 0.5 MG/2.5ML INH SOL NEB SCH ×3 (07:05→18:53)
[2018-02-13] MEDS: ALBUTEROL SULF 2.5 MG/0.5ML(0.5%) NEB SOLN NEB SCH ×3 (07:05→18:53)
[2018-02-13] MEDS ORDERED: LACTULOSE 20Gm/30ML SOLN PO ONE (09:45)
[2018-02-13] MEDS: HYDROXYCHLOROQUINE SULFATE 200 MG TAB PO SCH (10:10)
[2018-02-13] MEDS: methylPREDNISolone SOD SUCC 40 MG/ML VL IV SCH ×2 (10:10→21:15)
[2018-02-13] MEDS: PANTOPRAZOLE 40 MG TAB PO SCH (10:10)
[2018-02-13] MEDS: MYCOPHENOLATE 250 MG CAP PO SCH ×2 (10:10→21:15)
[2018-02-13] MEDS: AZITHROMYCIN 500MG/ 250ML 250 ML IV SCH (10:24)
[2018-02-13 18:28] LABS: Hemoglobin 9.5 g/dL (13.5-17.5)
[2018-02-13 18:30] LABS: Hematocrit 29.5 % (41.0-53.0)
[2018-02-13] MEDS: ZOLPIDEM TARTRATE 5 MG TAB PO PRN (23:45)
[2018-02-14] MEDS: ALBUTEROL SULF 2.5 MG/0.5ML(0.5%) NEB SOLN NEB SCH ×4 (01:03→19:31)
[2018-02-14] MEDS: IPRATROPIUM BROM 0.5 MG/2.5ML INH SOL NEB SCH ×4 (01:03→19:32)
[2018-02-14] MEDS: HYDROmorphone HCL 2 MG TAB PO PRN ×5 (02:43→19:19)
[2018-02-14] MEDS: diphenhdrAMINE HCL 50 MG/1 ML VL IV PRN ×3 (03:38→22:36)
[2018-02-14 04:58] VITALS: BP 107/62
[2018-02-14] MEDS: SODIUM CHLOR 0.9% PF (SALINE LOCK) 10ML VIAL/SYR IV SCH ×3 (06:15→21:31)
[2018-02-14 07:07] LABS: BUN/Creatinine Ratio 25.7; Calcium 8.5 mg/dL (8.5-10.1); Potassium 4.4 mmol/L (3.5-5.1)
[2018-02-14 08:46] VITALS: BP 117/78
[2018-02-14] MEDS: methylPREDNISolone SOD SUCC 40 MG/ML VL IV SCH ×2 (09:55→21:21)
[2018-02-14] MEDS: AZITHROMYCIN 500MG/ 250ML 250 ML IV SCH (09:55)
[2018-02-14] MEDS: MYCOPHENOLATE 250 MG CAP PO SCH ×2 (09:55→21:21)
[2018-02-14] MEDS: HYDROXYCHLOROQUINE SULFATE 200 MG TAB PO SCH (09:55)
[2018-02-14] MEDS: PANTOPRAZOLE 40 MG TAB PO SCH (09:56)
[2018-02-14] MEDS: BUDESONIDE (INHALATION) 0.5 MG/2 ML NEB NEB SCH ×2 (10:00→19:31)
[2018-02-14 13:00] VITALS: BP 127/79
[2018-02-14 15:18] VITALS: BP 127/79
[2018-02-14] MEDS ORDERED: IOHEXOL 350 MG/ML 100ML IJ ONE (15:22)
[2018-02-14 16:48] VITALS: BP 130/84
[2018-02-14] MEDS: ZOLPIDEM TARTRATE 5 MG TAB PO PRN (21:21)
[2018-02-14 21:45] VITALS: BP 132/81
[2018-02-15] MEDS: HYDROmorphone HCL 2 MG TAB PO PRN ×6 (00:24→20:12)
[2018-02-15] MEDS: IPRATROPIUM BROM 0.5 MG/2.5ML INH SOL NEB SCH ×5 (00:31→23:26)
[2018-02-15] MEDS: ALBUTEROL SULF 2.5 MG/0.5ML(0.5%) NEB SOLN NEB SCH ×5 (00:31→23:26)
[2018-02-15] MEDS: diphenhdrAMINE HCL 50 MG/1 ML VL IV PRN ×3 (04:39→18:16)
[2018-02-15 04:44] VITALS: BP 109/57
[2018-02-15 05:26] LABS: Hemoglobin 10.2 g/dL (13.5-17.5); Mean Corpuscular Hemoglobin 17.2 pg (28.0-32.0); Mean Corpuscular Hgb Conc. 31.1 g/dL (32.0-36.0); Mean Corpuscular Volume 55.4 fL (80.0-100.0)
[2018-02-15 05:32] LABS: Hematocrit 32.7 % (41.0-53.0); Platelet Count (auto) 165 10^3/uL (140-450); Red Blood Cells 5.91 10^6/uL (4.5-5.90); White Blood Cell 29.5 10^3/uL (4.4-10.8)
[2018-02-15 05:39] LABS: Red Cell Distribution Width 22.6 % (11.8-14.3)
[2018-02-15 05:40] LABS: Band Neutrophils % (manual) 0; Basophils % (manual) 0 (0.0-2.0); Blast Cells 0; Metamyelocytes % 0; Promyelocytes % 0; Reactive Lymphocytes 0
[2018-02-15 05:43] LABS: Potassium 4.1 mmol/L (3.5-5.1)
[2018-02-15 05:46] LABS: Albumin 3.2 g/dL (3.4-5.0); BUN/Creatinine Ratio 23.7; Bilirubin, Total 0.3 mg/dL (0.2-1.0); Calcium 8.7 mg/dL (8.5-10.1)
[2018-02-15] MEDS: SODIUM CHLOR 0.9% PF (SALINE LOCK) 10ML VIAL/SYR IV SCH ×3 (05:57→21:25)
[2018-02-15 06:45] LABS: Eosinophils % (manual) 5 (0-7); Lymphocytes % (manual) 11 (10.0-50.0); Monocytes % (manual) 3 (0-12); Myelocytes % 1
[2018-02-15 09:00] VITALS: BP 116/69
[2018-02-15] MEDS: methylPREDNISolone SOD SUCC 40 MG/ML VL IV SCH (10:37)
[2018-02-15] MEDS: AZITHROMYCIN 500MG/ 250ML 250 ML IV SCH (10:38)
[2018-02-15] MEDS: BUDESONIDE (INHALATION) 0.5 MG/2 ML NEB NEB SCH ×2 (10:38→18:12)
[2018-02-15] MEDS: HYDROXYCHLOROQUINE SULFATE 200 MG TAB PO SCH (10:38)
[2018-02-15] MEDS: MYCOPHENOLATE 250 MG CAP PO SCH ×2 (10:38→21:26)
[2018-02-15] MEDS: PANTOPRAZOLE 40 MG TAB PO SCH (10:39)
[2018-02-15 13:00] VITALS: BP 127/74
[2018-02-15] MEDS ORDERED: LEVOFLOXACIN 250 MG TAB PO ONE (14:15)
[2018-02-15] MEDS ORDERED: predniSONE 20 MG TAB PO ONE (14:15)
[2018-02-15 17:00] VITALS: BP 129/80
[2018-02-15] MEDS ORDERED: IOHEXOL 350 MG/ML 100ML IJ ONE (17:18)
[2018-02-15] MEDS ORDERED: traMADol HCL 50 MG TAB PO PRN (17:45)
[2018-02-15] MEDS: ZOLPIDEM TARTRATE 5 MG TAB PO PRN (20:11)
[2018-02-15 22:00] VITALS: BP 118/70
[2018-02-16] MEDS: diphenhdrAMINE HCL 50 MG/1 ML VL IV PRN ×2 (00:59→07:01)
[2018-02-16] MEDS: HYDROmorphone HCL 2 MG TAB PO PRN ×7 (01:01→21:57)
[2018-02-16 05:00] VITALS: BP 110/82
[2018-02-16] MEDS: SODIUM CHLOR 0.9% PF (SALINE LOCK) 10ML VIAL/SYR IV SCH ×3 (05:50→22:00)
[2018-02-16] MEDS: BUDESONIDE (INHALATION) 0.5 MG/2 ML NEB NEB SCH (06:26)
[2018-02-16] MEDS: IPRATROPIUM BROM 0.5 MG/2.5ML INH SOL NEB SCH ×3 (06:26→19:43)
[2018-02-16] MEDS: ALBUTEROL SULF 2.5 MG/0.5ML(0.5%) NEB SOLN NEB SCH ×3 (06:26→19:43)
[2018-02-16 08:06] VITALS: BP 115/76
[2018-02-16] MEDS: PANTOPRAZOLE 40 MG TAB PO SCH (09:48)
[2018-02-16] MEDS: HYDROXYCHLOROQUINE SULFATE 200 MG TAB PO SCH (09:48)
[2018-02-16] MEDS: predniSONE 20 MG TAB PO SCH (09:50)
[2018-02-16] MEDS: MYCOPHENOLATE 250 MG CAP PO SCH ×2 (10:00→21:56)
[2018-02-16] MEDS ORDERED: LEVOFLOXACIN 250 MG TAB PO SCH (10:00)
[2018-02-16 11:11] LABS: White Blood Cell 25.4 10^3/uL (4.4-10.8)
[2018-02-16 11:14] LABS: Mean Corpuscular Volume 55.5 fL (80.0-100.0)
[2018-02-16] MEDS ORDERED: TUBERCULIN PPD 5 UNIT/0.1 ML ID ONE (11:15)
[2018-02-16] MEDS ORDERED: NICOTINE 21MG/24 HR TOPICAL PATCH TD ONE (11:15)
[2018-02-16 11:21] LABS: Red Blood Cells 6.24 10^6/uL (4.5-5.90); Red Cell Distribution Width 23.1 % (11.8-14.3)
[2018-02-16 11:22] LABS: Hemoglobin 10.7 g/dL (13.5-17.5); Mean Corpuscular Hemoglobin 17.2 pg (28.0-32.0); Mean Corpuscular Hgb Conc. 31.1 g/dL (32.0-36.0); Platelet Count (auto) 290 10^3/uL (140-450)
[2018-02-16 11:23] LABS: Hematocrit 34.5 % (41.0-53.0)
[2018-02-16 11:24] LABS: Basophils % (manual) 0 (0.0-2.0); Blast Cells 0; Eosinophils % (manual) 0 (0-7); Myelocytes % 0; Promyelocytes % 0; Reactive Lymphocytes 0
[2018-02-16 11:33] LABS: BUN/Creatinine Ratio 19.1; Calcium 8.5 mg/dL (8.5-10.1); Potassium 3.9 mmol/L (3.5-5.1)
[2018-02-16] MEDS: MICAFUNGIN SODIUM 100 MG in SODIUM CHL 0.9% 100 ML IV SCH (11:35)
[2018-02-16 12:16] LABS: Band Neutrophils % (manual) 4; Lymphocytes % (manual) 6 (10.0-50.0); Metamyelocytes % 4; Monocytes % (manual) 6 (0-12)
[2018-02-16 12:30] VITALS: BP 117/59
[2018-02-16] MEDS: LEVOFLOXACIN 750MG 150 ML IV SCH (12:54)
[2018-02-16] MEDS: diphenhdrAMINE HCL 25 MG CAP PO PRN ×3 (14:23→22:58)
[2018-02-16 16:34] VITALS: BP 129/80
[2018-02-16 22:00] VITALS: BP 115/70
[2018-02-16] MEDS: ZOLPIDEM TARTRATE 5 MG TAB PO PRN (22:58)
[2018-02-17] VITALS (7 sets, daily range): BP systolic 117–131; BP diastolic 69–83
[2018-02-17] MEDS: BUDESONIDE (INHALATION) 0.5 MG/2 ML NEB NEB SCH ×2 (00:45→06:59)
[2018-02-17] MEDS: IPRATROPIUM BROM 0.5 MG/2.5ML INH SOL NEB SCH ×4 (00:46→19:40)
[2018-02-17] MEDS: ALBUTEROL SULF 2.5 MG/0.5ML(0.5%) NEB SOLN NEB SCH ×4 (00:46→19:40)
[2018-02-17] MEDS: HYDROmorphone HCL 2 MG TAB PO PRN ×7 (00:57→20:56)
[2018-02-17] MEDS: diphenhdrAMINE HCL 25 MG CAP PO PRN ×5 (03:00→23:00)
[2018-02-17] MEDS: SODIUM CHLOR 0.9% PF (SALINE LOCK) 10ML VIAL/SYR IV SCH ×3 (06:12→22:55)
[2018-02-17] MEDS ORDERED: MEPERIDINE HCL (50 MG/ML) 1 ML VIAL IM NR (08:00)
[2018-02-17] MEDS ORDERED: LIDOCAINE HCL 2 % INJ 2ML MPF NEB NR (08:00)
[2018-02-17] MEDS: NICOTINE 21MG/24 HR TOPICAL PATCH TD SCH (10:45)
[2018-02-17] MEDS: predniSONE 20 MG TAB PO SCH (10:45)
[2018-02-17] MEDS: PANTOPRAZOLE 40 MG TAB PO SCH (10:45)
[2018-02-17] MEDS: HYDROXYCHLOROQUINE SULFATE 200 MG TAB PO SCH (10:46)
[2018-02-17] MEDS: MYCOPHENOLATE 250 MG CAP PO SCH ×2 (10:46→20:51)
[2018-02-17] MEDS: MICAFUNGIN SODIUM 100 MG in SODIUM CHL 0.9% 100 ML IV SCH (10:53)
[2018-02-17] MEDS ORDERED: SODIUM CHLORIDE LOCK 30 ML ONE (12:09)
[2018-02-17] MEDS ORDERED: EPINEPHrine HCL 1 MG/1 ML AMP ONE (12:11)
[2018-02-17] MEDS ORDERED: GLYCOPYRROLATE 0.2 MG/ML 1ML VIAL ONE (12:13)
[2018-02-17] MEDS ORDERED: LIDOCAINE 2% (LOCAL ANESTH.) PF 5ml SDV ONE (12:13)
[2018-02-17] MEDS ORDERED: LIDOCAINE HCL 2% TOP JELLY 5ML TOP ONE (12:13)
[2018-02-17] MEDS ORDERED: MIDAZOLAM HCL 5 MG/ML-1ML VIAL ONE (12:31)
[2018-02-17] MEDS: MIDAZOLAM HCL 5 MG/ML-1ML VIAL ONE ×4 (13:23→13:31)
[2018-02-17] MEDS: LEVOFLOXACIN 750MG 150 ML IV SCH (14:30)
[2018-02-17] MEDS: ZOLPIDEM TARTRATE 5 MG TAB PO PRN (22:59)
[2018-02-18] VITALS (7 sets, daily range): BP systolic 103–134; BP diastolic 59–72
[2018-02-18] MEDS: HYDROmorphone HCL 2 MG TAB PO PRN ×8 (00:16→23:15)
[2018-02-18] MEDS: IPRATROPIUM BROM 0.5 MG/2.5ML INH SOL NEB SCH ×4 (00:41→20:02)
[2018-02-18] MEDS: ALBUTEROL SULF 2.5 MG/0.5ML(0.5%) NEB SOLN NEB SCH ×4 (00:41→20:02)
[2018-02-18] MEDS: BUDESONIDE (INHALATION) 0.5 MG/2 ML NEB NEB SCH ×3 (00:41→20:03)
[2018-02-18] MEDS: diphenhdrAMINE HCL 25 MG CAP PO PRN ×4 (05:39→20:05)
[2018-02-18] MEDS: SODIUM CHLOR 0.9% PF (SALINE LOCK) 10ML VIAL/SYR IV SCH ×3 (06:42→22:36)
[2018-02-18] MEDS: MICAFUNGIN SODIUM 100 MG in SODIUM CHL 0.9% 100 ML IV SCH (10:04)
[2018-02-18] MEDS: NICOTINE 21MG/24 HR TOPICAL PATCH TD SCH (10:05)
[2018-02-18] MEDS: predniSONE 20 MG TAB PO SCH (10:06)
[2018-02-18] MEDS: HYDROXYCHLOROQUINE SULFATE 200 MG TAB PO SCH (10:06)
[2018-02-18] MEDS: PANTOPRAZOLE 40 MG TAB PO SCH (10:06)
[2018-02-18] MEDS: LEVOFLOXACIN 750MG 150 ML IV SCH (12:12)
[2018-02-18] MEDS: MYCOPHENOLATE 250 MG CAP PO SCH ×2 (12:12→22:37)
[2018-02-18] MEDS ORDERED: LORazepam 0.5 MG TAB PO PRN (13:15)
[2018-02-18] MEDS: methylPREDNISolone SOD SUCC 40 MG/ML VL IV SCH ×2 (15:43→22:36)
[2018-02-18] MEDS: ZOLPIDEM TARTRATE 5 MG TAB PO PRN (20:05)
[2018-02-18 22:47] LABS: Hematocrit 32.2 % (41.0-53.0); Hemoglobin 9.5 g/dL (13.5-17.5); Mean Corpuscular Hgb Conc. 29.5 g/dL (32.0-36.0); Mean Corpuscular Volume 54.2 fL (80.0-100.0); Platelet Count (auto) 342 10^3/uL (140-450); Red Blood Cells 5.95 10^6/uL (4.5-5.90); White Blood Cell 24.1 10^3/uL (4.4-10.8)
[2018-02-18 22:54] LABS: Red Cell Distribution Width 23.1 % (11.8-14.3)
[2018-02-18 22:56] LABS: Basophils % (manual) 0 (0.0-2.0); Blast Cells 0; Eosinophils % (manual) 0 (0-7); Myelocytes % 0; Promyelocytes % 0; Reactive Lymphocytes 0
[2018-02-18 22:58] LABS: Albumin 2.9 g/dL (3.4-5.0); BUN/Creatinine Ratio 18.1; Calcium 8.4 mg/dL (8.5-10.1); Potassium 4.6 mmol/L (3.5-5.1)
[2018-02-18 23:00] LABS: Bilirubin, Total 0.3 mg/dL (0.2-1.0); Total Protein 6.9 g/dL (6.4-8.2)
[2018-02-18 23:13] LABS: Band Neutrophils % (manual) 4; Lymphocytes % (manual) 2 (10.0-50.0); Metamyelocytes % 1
[2018-02-18 23:14] LABS: Monocytes % (manual) 2 (0-12)
[2018-02-19] MEDS: diphenhdrAMINE HCL 25 MG CAP PO PRN ×5 (00:11→21:36)
[2018-02-19] MEDS: ALBUTEROL SULF 2.5 MG/0.5ML(0.5%) NEB SOLN NEB SCH ×7 (02:00→22:17)
[2018-02-19] MEDS: IPRATROPIUM BROM 0.5 MG/2.5ML INH SOL NEB SCH ×7 (02:00→22:17)
[2018-02-19] MEDS: HYDROmorphone HCL 2 MG TAB PO PRN ×8 (02:18→23:46)
[2018-02-19 04:39] VITALS: BP 129/72
[2018-02-19] MEDS: SODIUM CHLOR 0.9% PF (SALINE LOCK) 10ML VIAL/SYR IV SCH ×3 (05:37→22:09)
[2018-02-19] MEDS: methylPREDNISolone SOD SUCC 40 MG/ML VL IV SCH ×3 (05:37→22:09)
[2018-02-19] MEDS: MICAFUNGIN SODIUM 100 MG in SODIUM CHL 0.9% 100 ML IV SCH (08:25)
[2018-02-19] MEDS: HYDROXYCHLOROQUINE SULFATE 200 MG TAB PO SCH (08:26)
[2018-02-19] MEDS: MYCOPHENOLATE 250 MG CAP PO SCH ×2 (08:26→22:09)
[2018-02-19] MEDS: PANTOPRAZOLE 40 MG TAB PO SCH (08:26)
[2018-02-19 09:00] VITALS: BP 122/83
[2018-02-19] MEDS: NICOTINE 21MG/24 HR TOPICAL PATCH TD SCH (10:00)
[2018-02-19] MEDS ORDERED: traMADol HCL 50 MG TAB PO PRN (10:15)
[2018-02-19] MEDS: BUDESONIDE (INHALATION) 0.5 MG/2 ML NEB NEB SCH ×2 (10:24→18:28)
[2018-02-19] MEDS: LEVOFLOXACIN 750MG 150 ML IV SCH (11:29)
[2018-02-19 13:00] VITALS: BP 131/76
[2018-02-19 16:58] VITALS: BP 122/69
[2018-02-19 22:00] VITALS: BP 132/82
[2018-02-19] MEDS: ZOLPIDEM TARTRATE 5 MG TAB PO PRN (22:09)
[2018-02-20] MEDS: diphenhdrAMINE HCL 25 MG CAP PO PRN ×5 (01:36→20:18)
[2018-02-20] MEDS: ALBUTEROL SULF 2.5 MG/0.5ML(0.5%) NEB SOLN NEB SCH ×6 (02:00→22:00)
[2018-02-20] MEDS: IPRATROPIUM BROM 0.5 MG/2.5ML INH SOL NEB SCH ×6 (02:00→22:00)
[2018-02-20] MEDS: HYDROmorphone HCL 2 MG TAB PO PRN ×7 (02:47→21:55)
[2018-02-20 05:02] VITALS: BP 134/77
[2018-02-20] MEDS: methylPREDNISolone SOD SUCC 40 MG/ML VL IV SCH ×3 (06:01→21:51)
[2018-02-20] MEDS: SODIUM CHLOR 0.9% PF (SALINE LOCK) 10ML VIAL/SYR IV SCH ×3 (06:01→21:56)
[2018-02-20 07:37] LABS: Hematocrit 31.4 % (41.0-53.0); Hemoglobin 9.2 g/dL (13.5-17.5); Mean Corpuscular Hemoglobin 16.1 pg (28.0-32.0); Mean Corpuscular Hgb Conc. 29.3 g/dL (32.0-36.0); Platelet Count (auto) 354 10^3/uL (140-450); Red Blood Cells 5.71 10^6/uL (4.5-5.90); White Blood Cell 29.5 10^3/uL (4.4-10.8)
[2018-02-20 07:42] LABS: Red Cell Distribution Width 23.2 % (11.8-14.3)
[2018-02-20 07:43] LABS: Basophils % (manual) 0 (0.0-2.0); Blast Cells 0; Eosinophils % (manual) 0 (0-7); Metamyelocytes % 0; Myelocytes % 0; Promyelocytes % 0; Reactive Lymphocytes 0
[2018-02-20 08:45] LABS: Band Neutrophils % (manual) 4; Lymphocytes % (manual) 6 (10.0-50.0); Monocytes % (manual) 8 (0-12)
[2018-02-20 08:52] VITALS: BP 139/79
[2018-02-20 08:58] VITALS: BP 139/79
[2018-02-20] MEDS: MICAFUNGIN SODIUM 100 MG in SODIUM CHL 0.9% 100 ML IV SCH (09:20)
[2018-02-20] MEDS: HYDROXYCHLOROQUINE SULFATE 200 MG TAB PO SCH (09:21)
[2018-02-20] MEDS: MYCOPHENOLATE 250 MG CAP PO SCH ×2 (09:21→21:52)
[2018-02-20] MEDS: NICOTINE 21MG/24 HR TOPICAL PATCH TD SCH (09:22)
[2018-02-20] MEDS: PANTOPRAZOLE 40 MG TAB PO SCH (09:22)
[2018-02-20] MEDS: BUDESONIDE (INHALATION) 0.5 MG/2 ML NEB NEB SCH ×2 (09:33→22:00)
[2018-02-20] MEDS: LEVOFLOXACIN 750MG 150 ML IV SCH (12:12)
[2018-02-20 12:52] VITALS: BP 118/72
[2018-02-20 16:56] VITALS: BP 120/75
[2018-02-20] MEDS: ZOLPIDEM TARTRATE 5 MG TAB PO PRN (20:17)
[2018-02-20 22:00] VITALS: BP 130/73
[2018-02-21] MEDS: diphenhdrAMINE HCL 25 MG CAP PO PRN ×7 (00:23→22:12)
[2018-02-21] MEDS: HYDROmorphone HCL 2 MG TAB PO PRN ×8 (01:07→22:30)
[2018-02-21] MEDS: ALBUTEROL SULF 2.5 MG/0.5ML(0.5%) NEB SOLN NEB SCH ×6 (01:33→21:43)
[2018-02-21] MEDS: IPRATROPIUM BROM 0.5 MG/2.5ML INH SOL NEB SCH ×6 (01:33→21:43)
[2018-02-21 04:58] VITALS: BP 129/76
[2018-02-21] MEDS: SODIUM CHLOR 0.9% PF (SALINE LOCK) 10ML VIAL/SYR IV SCH ×3 (05:54→22:12)
[2018-02-21] MEDS: methylPREDNISolone SOD SUCC 40 MG/ML VL IV SCH (05:54)
[2018-02-21 09:00] VITALS: BP 119/72
[2018-02-21] MEDS: MYCOPHENOLATE 250 MG CAP PO SCH ×2 (10:00→22:11)
[2018-02-21] MEDS: HYDROXYCHLOROQUINE SULFATE 200 MG TAB PO SCH (10:11)
[2018-02-21] MEDS: PANTOPRAZOLE 40 MG TAB PO SCH (10:11)
[2018-02-21] MEDS: BUDESONIDE (INHALATION) 0.5 MG/2 ML NEB NEB SCH ×2 (10:11→21:43)
[2018-02-21] MEDS: MICAFUNGIN SODIUM 100 MG in SODIUM CHL 0.9% 100 ML IV SCH (10:11)
[2018-02-21] MEDS: NICOTINE 21MG/24 HR TOPICAL PATCH TD SCH (10:12)
[2018-02-21] MEDS ORDERED: predniSONE 20 MG TAB PO ONE (12:15)
[2018-02-21] MEDS: LEVOFLOXACIN 750MG 150 ML IV SCH (12:27)
[2018-02-21 12:42] VITALS: BP 122/75
[2018-02-21] MEDS: ACETYLCYSTEINE 10 %(100MG/ML) SOL 4ML NEB SCH ×3 (14:00→21:43)
[2018-02-21 17:22] VITALS: BP 122/74
[2018-02-21] MEDS: ZOLPIDEM TARTRATE 5 MG TAB PO PRN (19:33)
[2018-02-21 22:00] VITALS: BP 139/86
[2018-02-21 22:57] LABS: Basophils # (auto) 0 uL; Basophils % (auto) 0.1 % (0.0-2.0); Eosinophils # (auto) 0 uL; Eosinophils % (auto) 0.1 % (0.0-7.0); Hematocrit 32.3 % (41.0-53.0); Lymphocytes # (auto) 1.7 uL; Lymphocytes % (auto) 7.2 % (10.0-50.0); Mean Corpuscular Hemoglobin 17.2 pg (28.0-32.0); Mean Corpuscular Volume 55.5 fL (80.0-100.0); Monocytes # (auto) 1.2 uL; Monocytes % (auto) 5.1 % (0.0-12.0); Neutrophils # (auto) 20.8 uL; Neutrophils % (auto) 87.5 % (37.0-80.0); Nucleated Red Blood Cells % 0.1 %; Platelet Count (auto) 412 10^3/uL (140-450); Red Blood Cells 5.82 10^6/uL (4.5-5.90); White Blood Cell 23.7 10^3/uL (4.4-10.8)
[2018-02-21 22:59] LABS: Red Cell Distribution Width 22.8 % (11.8-14.3)
[2018-02-21 23:14] LABS: Albumin 3.2 g/dL (3.4-5.0); BUN/Creatinine Ratio 21.7; Calcium 8.7 mg/dL (8.5-10.1); Potassium 4.1 mmol/L (3.5-5.1)
[2018-02-21 23:17] LABS: Bilirubin, Total 0.3 mg/dL (0.2-1.0); Total Protein 7.3 g/dL (6.4-8.2)
[2018-02-22] MEDS: IPRATROPIUM BROM 0.5 MG/2.5ML INH SOL NEB SCH ×6 (01:25→22:35)
[2018-02-22] MEDS: ACETYLCYSTEINE 10 %(100MG/ML) SOL 4ML NEB SCH ×6 (01:25→22:35)
[2018-02-22] MEDS: ALBUTEROL SULF 2.5 MG/0.5ML(0.5%) NEB SOLN NEB SCH ×6 (01:25→22:35)
[2018-02-22] MEDS: HYDROmorphone HCL 2 MG TAB PO PRN ×6 (01:30→21:11)
[2018-02-22] MEDS: diphenhdrAMINE HCL 25 MG CAP PO PRN ×5 (02:47→21:11)
[2018-02-22 04:54] VITALS: BP 124/75
[2018-02-22] MEDS: SODIUM CHLOR 0.9% PF (SALINE LOCK) 10ML VIAL/SYR IV SCH ×3 (06:49→23:24)
[2018-02-22 07:58] VITALS: BP 129/76
[2018-02-22] MEDS ORDERED: traMADol HCL 50 MG TAB PO PRN (08:30)
[2018-02-22] MEDS: BUDESONIDE (INHALATION) 0.5 MG/2 ML NEB NEB SCH ×2 (10:28→22:35)
[2018-02-22] MEDS: MYCOPHENOLATE 250 MG CAP PO SCH ×2 (10:40→23:42)
[2018-02-22] MEDS: NICOTINE 21MG/24 HR TOPICAL PATCH TD SCH (10:41)
[2018-02-22] MEDS: predniSONE 20 MG TAB PO SCH (10:42)
[2018-02-22] MEDS: HYDROXYCHLOROQUINE SULFATE 200 MG TAB PO SCH (10:43)
[2018-02-22] MEDS: PANTOPRAZOLE 40 MG TAB PO SCH (10:43)
[2018-02-22] MEDS: MICAFUNGIN SODIUM 100 MG in SODIUM CHL 0.9% 100 ML IV SCH (10:43)
[2018-02-22] MEDS ORDERED: FLUC200T50 PO (11:07)
[2018-02-22] MEDS ORDERED: LEVO750T64 PO (11:07)
[2018-02-22 12:20] VITALS: BP 131/87
[2018-02-22] MEDS: LEVOFLOXACIN 750MG 150 ML IV SCH (16:42)
[2018-02-22 17:04] VITALS: BP 118/65
[2018-02-22] MEDS: CEFEPIME HYDROCHLORIDE 2 GM in SODIUM CHL 0.9% 50 ML IV SCH ×2 (18:01→23:42)
[2018-02-22] MEDS: ZOLPIDEM TARTRATE 5 MG TAB PO PRN (21:11)
[2018-02-22 22:00] VITALS: BP 142/79
[2018-02-23] MEDS: ACETYLCYSTEINE 10 %(100MG/ML) SOL 4ML NEB SCH ×6 (02:00→22:25)
[2018-02-23] MEDS: IPRATROPIUM BROM 0.5 MG/2.5ML INH SOL NEB SCH ×6 (02:00→22:25)
[2018-02-23] MEDS: ALBUTEROL SULF 2.5 MG/0.5ML(0.5%) NEB SOLN NEB SCH ×6 (02:00→22:25)
[2018-02-23] MEDS: HYDROmorphone HCL 2 MG TAB PO PRN ×7 (03:35→22:11)
[2018-02-23 04:51] VITALS: BP 124/78
[2018-02-23] MEDS: SODIUM CHLOR 0.9% PF (SALINE LOCK) 10ML VIAL/SYR IV SCH ×3 (06:33→22:10)
[2018-02-23] MEDS: CEFEPIME HYDROCHLORIDE 2 GM in SODIUM CHL 0.9% 50 ML IV SCH ×3 (06:33→22:10)
[2018-02-23 08:43] VITALS: BP 124/78
[2018-02-23] MEDS: MICAFUNGIN SODIUM 100 MG in SODIUM CHL 0.9% 100 ML IV SCH (10:06)
[2018-02-23] MEDS: predniSONE 20 MG TAB PO SCH (10:06)
[2018-02-23] MEDS: HYDROXYCHLOROQUINE SULFATE 200 MG TAB PO SCH (10:07)
[2018-02-23] MEDS: PANTOPRAZOLE 40 MG TAB PO SCH (10:07)
[2018-02-23] MEDS: NICOTINE 21MG/24 HR TOPICAL PATCH TD SCH (10:07)
[2018-02-23] MEDS: diphenhdrAMINE HCL 25 MG CAP PO PRN ×3 (10:08→20:25)
[2018-02-23] MEDS: MYCOPHENOLATE 250 MG CAP PO SCH ×2 (10:32→22:10)
[2018-02-23] MEDS: BUDESONIDE (INHALATION) 0.5 MG/2 ML NEB NEB SCH ×2 (10:49→22:25)
[2018-02-23 11:05] LABS: Eosinophils # (auto) 0.1 uL; Eosinophils % (auto) 0.5 % (0.0-7.0); Monocytes # (auto) 1.7 uL; Monocytes % (auto) 8.1 % (0.0-12.0); Neutrophils % (auto) 81.9 % (37.0-80.0); Nucleated Red Blood Cells % 0.3 %
[2018-02-23 11:09] LABS: Basophils # (auto) 0.1 uL; Basophils % (auto) 0.6 % (0.0-2.0); Hematocrit 32.4 % (41.0-53.0); Hemoglobin 9.9 g/dL (13.5-17.5); Lymphocytes # (auto) 1.9 uL; Lymphocytes % (auto) 8.9 % (10.0-50.0); Mean Corpuscular Hemoglobin 16.9 pg (28.0-32.0); Mean Corpuscular Hgb Conc. 30.5 g/dL (32.0-36.0); Mean Corpuscular Volume 55.3 fL (80.0-100.0); Neutrophils # (auto) 17.6 uL; Platelet Count (auto) 311 10^3/uL (140-450); Red Blood Cells 5.86 10^6/uL (4.5-5.90); White Blood Cell 21.4 10^3/uL (4.4-10.8)
[2018-02-23 11:13] LABS: Red Cell Distribution Width 22.9 % (11.8-14.3)
[2018-02-23 13:00] VITALS: BP 122/78
[2018-02-23] MEDS: LEVOFLOXACIN 750MG 150 ML IV SCH (13:06)
[2018-02-23 17:00] VITALS: BP 127/74
[2018-02-23] MEDS: ZOLPIDEM TARTRATE 5 MG TAB PO PRN (20:25)
[2018-02-23 22:00] VITALS: BP 118/80
[2018-02-24] MEDS: diphenhdrAMINE HCL 25 MG CAP PO PRN ×5 (01:13→20:49)
[2018-02-24] MEDS: HYDROmorphone HCL 2 MG TAB PO PRN ×8 (01:13→21:42)
[2018-02-24] MEDS: ACETYLCYSTEINE 10 %(100MG/ML) SOL 4ML NEB SCH ×6 (02:00→22:39)
[2018-02-24] MEDS: IPRATROPIUM BROM 0.5 MG/2.5ML INH SOL NEB SCH ×6 (02:00→22:38)
[2018-02-24] MEDS: ALBUTEROL SULF 2.5 MG/0.5ML(0.5%) NEB SOLN NEB SCH ×6 (02:00→22:38)
[2018-02-24 05:26] VITALS: BP 122/85
[2018-02-24] MEDS: CEFEPIME HYDROCHLORIDE 2 GM in SODIUM CHL 0.9% 50 ML IV SCH (05:59)
[2018-02-24] MEDS: SODIUM CHLOR 0.9% PF (SALINE LOCK) 10ML VIAL/SYR IV SCH ×3 (05:59→22:00)
[2018-02-24 08:07] LABS: Basophils # (auto) 0.2 uL; Eosinophils # (auto) 0.1 uL; Hemoglobin 9.2 g/dL (13.5-17.5); Mean Corpuscular Hemoglobin 17.4 pg (28.0-32.0); Mean Corpuscular Volume 55.3 fL (80.0-100.0); Monocytes # (auto) 1.1 uL; Neutrophils # (auto) 14.4 uL; Nucleated Red Blood Cells % 0.1 %
[2018-02-24 08:09] LABS: Basophils % (auto) 0.9 % (0.0-2.0); Eosinophils % (auto) 0.7 % (0.0-7.0); Hematocrit 29.2 % (41.0-53.0); Lymphocytes # (auto) 1.7 uL; Lymphocytes % (auto) 9.5 % (10.0-50.0); Mean Corpuscular Hgb Conc. 31.5 g/dL (32.0-36.0); Monocytes % (auto) 6.5 % (0.0-12.0); Neutrophils % (auto) 82.4 % (37.0-80.0); Platelet Count (auto) 74 10^3/uL (140-450); Red Blood Cells 5.29 10^6/uL (4.5-5.90); White Blood Cell 17.5 10^3/uL (4.4-10.8)
[2018-02-24 08:16] LABS: Red Cell Distribution Width 22.9 % (11.8-14.3)
[2018-02-24 09:00] VITALS: BP_SYST 120; BP_SYST 131; BP_DIAS 64; BP_DIAS 78
[2018-02-24] MEDS: BUDESONIDE (INHALATION) 0.5 MG/2 ML NEB NEB SCH ×2 (10:00→22:39)
[2018-02-24] MEDS: predniSONE 20 MG TAB PO SCH (10:16)
[2018-02-24] MEDS: MICAFUNGIN SODIUM 100 MG in SODIUM CHL 0.9% 100 ML IV SCH (10:16)
[2018-02-24] MEDS: HYDROXYCHLOROQUINE SULFATE 200 MG TAB PO SCH (10:17)
[2018-02-24] MEDS: MYCOPHENOLATE 250 MG CAP PO SCH ×2 (10:17→22:00)
[2018-02-24] MEDS: PANTOPRAZOLE 40 MG TAB PO SCH (10:17)
[2018-02-24] MEDS: NICOTINE 21MG/24 HR TOPICAL PATCH TD SCH (10:18)
[2018-02-24] MEDS: LEVOFLOXACIN 750MG 150 ML IV SCH (12:00)
[2018-02-24 13:00] VITALS: BP 120/68
[2018-02-24] MEDS: PIPERACILLIN-TAZO 4.5GM 100 ML IV SCH ×3 (13:30→23:54)
[2018-02-24 19:37] LABS: Hemoglobin 9.7 g/dL (13.5-17.5); Mean Corpuscular Volume 55.7 fL (80.0-100.0)
[2018-02-24 19:39] LABS: Hematocrit 30.7 % (41.0-53.0); Mean Corpuscular Hemoglobin 17.5 pg (28.0-32.0); Mean Corpuscular Hgb Conc. 31.5 g/dL (32.0-36.0); Platelet Count (auto) 407 10^3/uL (140-450); Red Blood Cells 5.51 10^6/uL (4.5-5.90)
[2018-02-24 19:46] LABS: Red Cell Distribution Width 22.8 % (11.8-14.3)
[2018-02-24 19:47] LABS: Basophils % (manual) 0 (0.0-2.0); Blast Cells 0; Eosinophils % (manual) 0 (0-7); Metamyelocytes % 0; Myelocytes % 0; Promyelocytes % 0; Reactive Lymphocytes 0
[2018-02-24 20:00] VITALS: BP 124/61
[2018-02-24] MEDS: ZOLPIDEM TARTRATE 5 MG TAB PO PRN (20:20)
[2018-02-24] MEDS: LINEZOLID 600MG/300ML 300 ML IV SCH (21:42)
[2018-02-24 21:44] LABS: Band Neutrophils % (manual) 3; Lymphocytes % (manual) 2 (10.0-50.0); Monocytes % (manual) 2 (0-12)
[2018-02-24 22:00] VITALS: BP 124/61
[2018-02-25] MEDS: HYDROmorphone HCL 2 MG TAB PO PRN ×8 (00:41→22:23)
[2018-02-25] MEDS: diphenhdrAMINE HCL 25 MG CAP PO PRN ×4 (01:00→23:14)
[2018-02-25] MEDS: PIPERACILLIN-TAZO 4.5GM 100 ML IV SCH ×4 (06:00→23:14)
[2018-02-25] MEDS: SODIUM CHLOR 0.9% PF (SALINE LOCK) 10ML VIAL/SYR IV SCH ×3 (06:00→21:22)
[2018-02-25 06:25] VITALS: BP 109/59
[2018-02-25] MEDS: IPRATROPIUM BROM 0.5 MG/2.5ML INH SOL NEB SCH ×5 (06:38→22:37)
[2018-02-25] MEDS: ALBUTEROL SULF 2.5 MG/0.5ML(0.5%) NEB SOLN NEB SCH ×5 (06:38→22:00)
[2018-02-25] MEDS: ACETYLCYSTEINE 10 %(100MG/ML) SOL 4ML NEB SCH ×5 (06:38→22:37)
[2018-02-25] MEDS ORDERED: LIDOCAINE VISCOUS 2% 15ML UD PO ONE (08:00)
[2018-02-25] MEDS ORDERED: NALOXONE HCL 1MG/ML 2ML SYRINGE IV ONE (08:00)
[2018-02-25] MEDS ORDERED: fentaNYL CITRATE 100 MCG/2 ML VL IV ONE ×2 (08:00→19:00)
[2018-02-25] MEDS ORDERED: FLUMAZENIL 0.1 MG/ML INJ 10ML MDV IV ONE ×2 (08:00→09:00)
[2018-02-25] MEDS ORDERED: MIDAZOLAM HCL 5 MG/ML-1ML VIAL IV ONE (08:00)
[2018-02-25] MEDS ORDERED: MIDAZOLAM HCL 1MG/1ML-2 ML VIAL ONE ×3 (08:32→17:43)
[2018-02-25 09:00] VITALS: BP 124/83
[2018-02-25] MEDS ORDERED: NALOXONE HCL 0.4 MG/ML VIAL IV ONE (09:00)
[2018-02-25] MEDS ORDERED: traMADol HCL 50 MG TAB PO PRN (09:45)
[2018-02-25] MEDS: NICOTINE 21MG/24 HR TOPICAL PATCH TD SCH (10:00)
[2018-02-25] MEDS: PANTOPRAZOLE 40 MG TAB PO SCH (10:00)
[2018-02-25] MEDS: predniSONE 20 MG TAB PO SCH (10:00)
[2018-02-25] MEDS: BUDESONIDE (INHALATION) 0.5 MG/2 ML NEB NEB SCH ×2 (10:00→22:37)
[2018-02-25] MEDS ORDERED: LIDOCAINE VISCOUS 2% 15ML UD ONE (10:18)
[2018-02-25] MEDS: LINEZOLID 600MG/300ML 300 ML IV SCH ×2 (11:33→21:20)
[2018-02-25] MEDS: MYCOPHENOLATE 250 MG CAP PO SCH ×2 (11:34→21:23)
[2018-02-25] MEDS: HYDROXYCHLOROQUINE SULFATE 200 MG TAB PO SCH (11:34)
[2018-02-25 13:00] VITALS: BP 113/66
[2018-02-25] MEDS ORDERED: NYSTATIN (MOUTH-THROAT) 500,000 UNITS/5 ML SUSP MT SCH (13:30)
[2018-02-25 14:11] LABS: INR 0.93 (0.9-1.15); Partial Thromboplastin Time 24.6 sec (23.78-33.04)
[2018-02-25] MEDS ORDERED: LORazepam 0.5 MG TAB PO PRN (14:15)
[2018-02-25] MEDS ORDERED: ceFAZolin 1GM VL ONE (16:54)
[2018-02-25] MEDS ORDERED: LIDOCAINE 1% (LOCAL ANESTH.) PF 5ml SDV ONE (16:54)
[2018-02-25] MEDS ORDERED: fentaNYL CITRATE 100 MCG/2 ML VL ONE (17:43)
[2018-02-25] MEDS ORDERED: PROPOFOL 10 MG/ML 20 ML IV ONE (17:57)
[2018-02-25] MEDS ORDERED: ePHEDrine SULFATE 50 MG/ML AMP IV PRN (18:30)
[2018-02-25] MEDS ORDERED: ONDANSETRON HCL 4 MG/2 ML VIAL IV ONE (18:30)
[2018-02-25] MEDS ORDERED: hydrALAZINE HCL 20 MG/ML VL IV PRN (18:30)
[2018-02-25] MEDS: ZOLPIDEM TARTRATE 5 MG TAB PO PRN (21:21)
[2018-02-25 21:39] VITALS: BP 127/79
[2018-02-26] MEDS: HYDROmorphone HCL 2 MG TAB PO PRN ×6 (01:32→17:18)
[2018-02-26] MEDS: ACETYLCYSTEINE 10 %(100MG/ML) SOL 4ML NEB SCH ×5 (01:34→19:31)
[2018-02-26] MEDS: IPRATROPIUM BROM 0.5 MG/2.5ML INH SOL NEB SCH ×5 (01:34→19:31)
[2018-02-26] MEDS: ALBUTEROL SULF 2.5 MG/0.5ML(0.5%) NEB SOLN NEB SCH ×5 (01:34→19:31)
[2018-02-26] MEDS: diphenhdrAMINE HCL 25 MG CAP PO PRN ×3 (03:20→15:45)
[2018-02-26 04:45] VITALS: BP_SYST 126
[2018-02-26] MEDS: SODIUM CHLOR 0.9% PF (SALINE LOCK) 10ML VIAL/SYR IV SCH (06:03)
[2018-02-26] MEDS: PIPERACILLIN-TAZO 4.5GM 100 ML IV SCH ×2 (06:04→12:21)
[2018-02-26] MEDS: BUDESONIDE (INHALATION) 0.5 MG/2 ML NEB NEB SCH (06:56)
[2018-02-26 08:00] VITALS: BP 120/76
[2018-02-26 08:02] LABS: Hemoglobin 8.9 g/dL (13.5-17.5)
[2018-02-26 08:06] LABS: Hematocrit 30.2 % (41.0-53.0); Mean Corpuscular Hemoglobin 16.2 pg (28.0-32.0); Mean Corpuscular Hgb Conc. 29.3 g/dL (32.0-36.0); Mean Corpuscular Volume 55.4 fL (80.0-100.0); Platelet Count (auto) 423 10^3/uL (140-450); Red Blood Cells 5.46 10^6/uL (4.5-5.90); White Blood Cell 15.2 10^3/uL (4.4-10.8)
[2018-02-26 08:17] LABS: Red Cell Distribution Width 23.1 % (11.8-14.3)
[2018-02-26 08:19] LABS: Basophils % (manual) 0 (0.0-2.0); Blast Cells 0; Metamyelocytes % 0; Myelocytes % 0; Promyelocytes % 0; Reactive Lymphocytes 0
[2018-02-26] MEDS: LINEZOLID 600MG/300ML 300 ML IV SCH (09:45)
[2018-02-26] MEDS: MYCOPHENOLATE 250 MG CAP PO SCH (09:46)
[2018-02-26] MEDS: HYDROXYCHLOROQUINE SULFATE 200 MG TAB PO SCH (09:46)
[2018-02-26] MEDS: PANTOPRAZOLE 40 MG TAB PO SCH (09:46)
[2018-02-26] MEDS: predniSONE 20 MG TAB PO SCH (09:46)
[2018-02-26] MEDS: NICOTINE 21MG/24 HR TOPICAL PATCH TD SCH (09:52)
[2018-02-26] MEDS: NYSTATIN (MOUTH-THROAT) 500,000 UNITS/5 ML SUSP MT SCH ×2 (12:21→18:08)
[2018-02-26 12:34] VITALS: BP 118/72
[2018-02-26 13:17] LABS: Band Neutrophils % (manual) 2; Eosinophils % (manual) 3 (0-7); Lymphocytes % (manual) 6 (10.0-50.0); Monocytes % (manual) 7 (0-12)
[2018-02-26] MEDS ORDERED: PROMETHAZINE HCL 6.25 MG/5 ML ORAL SYRUP PO PRN (17:15)
[2018-02-26] MEDS: CIPROFLOXACIN HCL 500 MG TAB PO ONE ×2 (17:15→18:37)
[2018-02-26 17:17] VITALS: BP 119/71
[2018-02-26] MEDS: CLINDAMYCIN HCL 150 MG CAP PO SCH ×2 (18:00→18:37)
[2018-02-27] MEDS ORDERED: CIPROFLOXACIN HCL 500 MG TAB PO SCH (10:00)
== END 2018-02-26 19:49 | disposition left against medical advice (07) | DRG 711 ==
LOC: ER 03:14 → TELE 03:15 → TELE-WESTW 09:03 → WEST WING 02-15 14:08
PROVIDERS: ADMIT Internal Medicine; ATTEND Internal Medicine
PROC: 0B9G8ZX Drainage of Left Upper Lung Lobe, Via Natural or Artificial Opening Endoscopic, Diagnostic (ICD-10-PCS; 2018-02-17)
PROC: 0B9C8ZX Drainage of Right Upper Lung Lobe, Via Natural or Artificial Opening Endoscopic, Diagnostic (ICD-10-PCS; 2018-02-17)
PROC: B245ZZ4 Ultrasonography of Left Heart, Transesophageal (ICD-10-PCS; 2018-02-25)
PROC: 05PY03Z Removal of Infusion Device from Upper Vein, Open Approach (ICD-10-PCS; principal; 2018-02-25 17:35)
DX: T80.212A Local infection due to central venous catheter, initial encounter (principal); I76 Septic arterial embolism; J15.1 Pneumonia due to Pseudomonas; I11.0 Hypertensive heart disease with heart failure; Z93.0 Tracheostomy status; I50.9 Heart failure, unspecified; K92.2 Gastrointestinal hemorrhage, unspecified; M32.9 Systemic lupus erythematosus, unspecified; F11.20 Opioid dependence, uncomplicated; J44.0 Chronic obstructive pulmonary disease with (acute) lower respiratory infection; J44.1 Chronic obstructive pulmonary disease with (acute) exacerbation; J45.901 Unspecified asthma with (acute) exacerbation; F41.9 Anxiety disorder, unspecified; I25.10 Atherosclerotic heart disease of native coronary artery without angina pectoris; M06.9 Rheumatoid arthritis, unspecified; M81.0 Age-related osteoporosis without current pathological fracture; E03.9 Hypothyroidism, unspecified; F12.90 Cannabis use, unspecified, uncomplicated; K21.9 Gastro-esophageal reflux disease without esophagitis; G47.00 Insomnia, unspecified; Y84.8 Other medical procedures as the cause of abnormal reaction of the patient, or of later complication, without mention of misadventure at the time of the procedure; Z53.21 Procedure and treatment not carried out due to patient leaving prior to being seen by health care provider; T38.0X5A Adverse effect of glucocorticoids and synthetic analogues, initial encounter; Y92.89 Other specified places as the place of occurrence of the external cause; Z82.49 Family history of ischemic heart disease and other diseases of the circulatory system; Z86.711 Personal history of pulmonary embolism; Z86.718 Personal history of other venous thrombosis and embolism; Z83.3 Family history of diabetes mellitus; Z87.442 Personal history of urinary calculi; Z88.6 Allergy status to analgesic agent; Z88.1 Allergy status to other antibiotic agents
CPT/HCPCS: 31624; 36415; 71045; 71046; 71275; 80048; 80053; 81001; 82150; 82270; 83690; 83735; 83880; 85007; 85014; 85018; 85025; 85027; 85045; 85379; 85610; 85652; 85730; 86141; 86606; 86612; 86635; 86698; 86703; 87040; 87070; 87077; 87081; 87186; 87205; 93312; 93970; 94640; 96374; 96375; 99152; A6257; C9113; J0171; J0690; J1642; J1956; J2001; J2248; J2250; J2405; J2543; J2704; J7517

== ENCOUNTER 2018-09-09 18:24 | Inpatient (IN) | payer MEDICAID ==
[~2018-09-09] VITALS: Ht 182.9 cm; Wt 79.0 kg
[~2018-09-09 18:24] MED LIST changes: -HYDR2TAB58 PO; +LEVO750T64 PO; +METR500T PO; +PANT40T PO
[2018-09-09 19:45] LABS: Hemoglobin 10.4 g/dL (13.5-17.5); Mean Corpuscular Volume 54.5 fL (80.0-100.0)
[2018-09-09 19:46] LABS: Hematocrit 36.3 % (41.0-53.0); Mean Corpuscular Hemoglobin 15.6 pg (28.0-32.0); Mean Corpuscular Hgb Conc. 28.6 g/dL (32.0-36.0); Platelet Count (auto) 412 10^3/uL (140-450); Red Blood Cells 6.66 10^6/uL (4.5-5.90); White Blood Cell 14.5 10^3/uL (4.4-10.8)
[2018-09-09 20:02] LABS: Albumin 3.9 g/dL (3.4-5.0); Anion Gap 10 (5-15); Blood Urea Nitrogen 18 mg/dL (7-18); Calcium 8.6 mg/dL (8.5-10.1); Carbon Dioxide 26 mmol/L (21-32); Chloride 104 mmol/L (98-107); Glucose 142 mg/dL (74-106); Magnesium 1.9 mg/dL (1.6-2.6); Potassium 3.3 mmol/L (3.5-5.1); Sodium 140 mmol/L (136-145)
[2018-09-09 20:08] LABS: Alanine Aminotransferase 26 U/L (16-61); Alkaline Phosphatase 74 U/L (45-117); Aspartate Aminotransferase 13 U/L (15-37); BUN/Creatinine Ratio 22.2; Bilirubin, Total 0.3 mg/dL (0.2-1.0); GFR African American 142 mL/min; GFR Non-African American 117 mL/min; Total Protein 7.4 g/dL (6.4-8.2)
[2018-09-09 20:39] LABS: Red Cell Distribution Width 26.1 % (11.8-14.3)
[2018-09-09 20:55] LABS: Band Neutrophils % (manual) 0; Basophils % (manual) 0 (0.0-2.0); Blast Cells 0; Metamyelocytes % 0; Myelocytes % 0; Promyelocytes % 0; Reactive Lymphocytes 0
[2018-09-09] MEDS ORDERED: DILTIAZEM HCL 25 MG/5 ML VIAL IV ONE (21:00)
[2018-09-09] MEDS ORDERED: MORPHINE SULFATE 4 MG/ML SYR/VIAL IV ONE (21:00)
[2018-09-09] MEDS ORDERED: PROMETHAZINE HCL 25 MG/ML 1ML IV ONE (21:00)
[2018-09-09 21:45] LABS: INR 0.9 (0.9-1.15); Partial Thromboplastin Time 21.3 sec (23.78-33.04); Prothrombin Time 9.7 sec (9.27-12.13)
[2018-09-09 21:50] LABS: Alcohol, Urine < 3.0 mg/dL (0-5); Amphetamine Screen, Urine NEGATIVE (NEGATIVE); Barbiturate Scree,Urine NEGATIVE (NEGATIVE); Benzodiazephine Screen, Urine NEGATIVE (NEGATIVE); Cannabinoid Screen, Urine POSITIVE (NEGATIVE); Cocaine Screen, Urine NEGATIVE (NEGATIVE); Opiate Scree,Urine NEGATIVE (NEGATIVE); Phencyclidine Screen, Urine NEGATIVE (NEGATIVE)
[2018-09-09 22:03] LABS: Urine Bacteria NONE SEEN /hpf (None Seen); Urine Blood Negative /uL (Negative); Urine Mucus FEW (None Seen); Urine Specific Gravity 1.024 (1.001-1.035); Urine WBC 13 /hpf (0 - 3)
[2018-09-09] MEDS ORDERED: HYDROmorphone HCL 2 MG/ML VL IV ONE (22:45)
[2018-09-09 22:53] LABS: Eosinophils % (manual) 1 (0-7); Lymphocytes % (manual) 18 (10.0-50.0); Monocytes % (manual) 5 (0-12)
[2018-09-10] MEDS ORDERED: IPRATROPIUM BROM 0.5 MG/2.5ML INH SOL NEB ONE (00:15)
[2018-09-10] MEDS ORDERED: ALBUTEROL SULF 2.5 MG/0.5ML(0.5%) NEB SOLN NEB ONE (00:15)
[2018-09-10] MEDS ORDERED: ONDANSETRON HCL 4 MG/2 ML VIAL IV PRN (04:15)
[2018-09-10] MEDS ORDERED: HYDROmorphone HCL 2 MG/ML VL IV ONE (04:15)
[2018-09-10] MEDS ORDERED: ZOLPIDEM TARTRATE 5 MG TAB PO PRN ×2 (05:00→22:30)
[2018-09-10] MEDS ORDERED: diphenhdrAMINE HCL 25 MG CAP PO PRN ×2 (05:00→22:30)
[2018-09-10] MEDS: metroNIDAZOLE 500MG/100ML 100 ML IV SCH ×2 (05:49→14:00)
[2018-09-10] MEDS ORDERED: MEROPENEM 1GM IVPB 100 ML IV ONE (06:00)
[2018-09-10] MEDS: ALBUTEROL SULF 2.5 MG/0.5ML(0.5%) NEB SOLN NEB SCH ×5 (06:10→22:48)
[2018-09-10] MEDS: IPRATROPIUM BROM 0.5 MG/2.5ML INH SOL NEB SCH ×5 (06:10→22:48)
[2018-09-10 08:13] LABS: Hematocrit 28.4 % (41.0-53.0); Mean Corpuscular Volume 53.7 fL (80.0-100.0)
[2018-09-10 08:14] LABS: Hemoglobin 8.5 g/dL (13.5-17.5); Mean Corpuscular Hemoglobin 16.1 pg (28.0-32.0); Platelet Count (auto) 355 10^3/uL (140-450); Red Blood Cells 5.28 10^6/uL (4.5-5.90); White Blood Cell 11.2 10^3/uL (4.4-10.8)
[2018-09-10 08:20] LABS: Red Cell Distribution Width 24.7 % (11.8-14.3)
[2018-09-10 08:22] LABS: Band Neutrophils % (manual) 0; Basophils % (manual) 0 (0.0-2.0); Blast Cells 0; Myelocytes % 0; Promyelocytes % 0; Reactive Lymphocytes 0
[2018-09-10 08:27] LABS: BUN/Creatinine Ratio 20.8; Calcium 8.1 mg/dL (8.5-10.1)
[2018-09-10 08:40] LABS: Lactic Acid w/Reflex 2.1 mmol/L (0.4-2.0)
[2018-09-10] MEDS: HYDROmorphone HCL 2 MG TAB PO PRN ×4 (08:49→21:29)
[2018-09-10] MEDS: PANTOPRAZOLE 40 MG TAB PO SCH ×2 (10:15→21:29)
[2018-09-10] MEDS: HYDROXYCHLOROQUINE SULFATE 200 MG TAB PO SCH (10:15)
[2018-09-10] MEDS: FUROSEMIDE 20 MG TAB PO SCH (10:16)
[2018-09-10] MEDS: predniSONE 20 MG TAB PO SCH (10:16)
[2018-09-10] MEDS: METOPROLOL TARTRATE 25 MG TAB PO SCH ×2 (10:17→21:30)
[2018-09-10] MEDS: MYCOPHENOLATE 250 MG CAP PO SCH ×2 (11:32→22:00)
[2018-09-10 12:51] LABS: Eosinophils % (manual) 7 (0-7); Lymphocytes % (manual) 10 (10.0-50.0); Metamyelocytes % 1; Monocytes % (manual) 4 (0-12)
--- NOTE | 2018-09-10 14:00 | NUR ---
PT REFUSED MED NEB AT THIS TIME. NO DISTRESS NOTED. NO SOB. NO WHEEZING. BS ARE CLEAR. WILL CONTINUE TO MONITOR PT.
[2018-09-10 20:00] VITALS: BP 132/91
--- NOTE | 2018-09-10 21:30 | NUR ---
Dr. Rockwell at bedside, stress test ordered for next available date
[2018-09-10] MEDS ORDERED: PROMETHAZINE HCL 25 MG/ML 1ML IV PRN (22:30)
[2018-09-10] MEDS ORDERED: LEVOFLOXACIN 500 MG TAB PO ONE (22:30)
[2018-09-10 22:48] VITALS: BP 129/84
--- NOTE | 2018-09-10 23:00 | NUR ---
Dr Joy at bedside
--- NOTE | 2018-09-10 23:00 | NUR ---
IV insertion IV access obtained, via clean sterile technique by inserting 22 gauge catheter at left forearm after 2 attempt(s). IV secured properly. No trauma to site. Patient tolerated well. NOTE:
[2018-09-10] MEDS: SODIUM CHLORIDE 0.9% 1,000 ML IV SCH ×2 (23:31→23:51)
--- NOTE | 2018-09-11 00:49 | NUR ---
Called/paged Dr. Briseno called re:patient allergy to vanco, per MD keep antibiotic po flagyl for positive blood cultures. Repeat blood cultures ordered. Continue care.
[2018-09-11] MEDS: HYDROmorphone HCL 2 MG TAB PO PRN ×2 (00:59→06:42)
[2018-09-11] MEDS: ALBUTEROL SULF 2.5 MG/0.5ML(0.5%) NEB SOLN NEB SCH ×4 (02:12→14:00)
[2018-09-11] MEDS: IPRATROPIUM BROM 0.5 MG/2.5ML INH SOL NEB SCH ×4 (02:12→14:00)
--- NOTE | 2018-09-11 04:18 | NUR ---
AMA Pt states he wants to go ama in the morning because his pain med schedule was changed. BIRD Carlos notified. Will continue to monitor.
--- NOTE | 2018-09-11 04:45 | NUR ---
PT REFUSED VITALS FOR 0500 RN NOTIFIED
[2018-09-11] MEDS ORDERED: metroNIDAZOLE 500 MG TAB PO SCH (06:00)
--- NOTE | 2018-09-11 06:29 | NUR ---
Respiratory note: PATIENT REFUSED 0600 MED-NEB TX AT THIS TIME. HE INDICATED HE FELT FINE AND DID NOT WANT IT. PATIENT WAS IN NO ACUTE RESPIRATORY DISTRESS AT TIME OF REFUSAL. HE WAS INFORMED THAT HIS NEXT TX WOULD NOT BE UNTIL 1000, HE WAS IN AGREEMENT WITH THIS.
--- NOTE | 2018-09-11 07:00 | NUR ---
OPENING SHIFT NOTE ASSUMED CARE OF THE PATIENT FROM THE AUTO LOCATOR RN. THE PATIENT IS A&OX4,NO SIGN OR SYMPTOM OF DISTRESS. EDUCATED THE PATIENT ON POC AND PATIENT VERBALIZED UNDERSTANDING. THE PATIENT'S CALL LIGHT IS WITHIN REACH AND BED IS IN THE LOWEST, LOCKED POSITION. WILL ROUND HOURLY AND CONTINUE TO MONITOR.
[2018-09-11 08:00] VITALS: BP 108/61
[2018-09-11 09:22] VITALS: BP 108/61
--- NOTE | 2018-09-11 10:05 | NUR ---
Spoke with Dr. Francisco Rockwell cleared patient for discharge and for outpatient cardiolite stress test. Dr. Alex Haynes aware.
[2018-09-11] MEDS ORDERED: LEVA1NEB5 IN (10:24)
[2018-09-11] MEDS: predniSONE 20 MG TAB PO SCH (10:35)
[2018-09-11] MEDS: MYCOPHENOLATE 250 MG CAP PO SCH (10:36)
[2018-09-11] MEDS: PANTOPRAZOLE 40 MG TAB PO SCH (10:36)
[2018-09-11] MEDS: HYDROXYCHLOROQUINE SULFATE 200 MG TAB PO SCH (10:36)
[2018-09-11] MEDS: FUROSEMIDE 20 MG TAB PO SCH (10:36)
--- NOTE | 2018-09-11 13:58 | NUR ---
PATIENT ELOPED PATIENT REFUSED DISCHARGE AND ELOPED WITH IV STILL IN PLACE. NOTIFIED [facility] DEPARTMENT OF PATIENT LEAVING WITH IV STILL IN PLACE. [phone].
--- NOTE | 2018-09-11 14:30 | NUR ---
Respiratory note: ATTEMPTED TO GIVE 1400 MED-NEB AT THIS TIME; PATIENT GONE, LEFT AMA.
[2018-09-11] MEDS ORDERED: LEVOFLOXACIN 500 MG TAB PO SCH (22:00)
== END 2018-09-11 13:55 | disposition home or self-care (01) | DRG 201 ==
LOC: EDBD 18:24 → EDUNIT# 18:24 → ER 18:26 → TELE 09-10 04:26 → TELE-WESTW 09-10 18:44
PROVIDERS: ADMIT Nurse Practitioner Family; ATTEND Nurse Practitioner Family
DX: I48.0 Paroxysmal atrial fibrillation (principal); M32.9 Systemic lupus erythematosus, unspecified; J44.1 Chronic obstructive pulmonary disease with (acute) exacerbation; E11.65 Type 2 diabetes mellitus with hyperglycemia; I11.0 Hypertensive heart disease with heart failure; I50.9 Heart failure, unspecified; I47.1 Supraventricular tachycardia; E86.0 Dehydration; J45.901 Unspecified asthma with (acute) exacerbation; E87.6 Hypokalemia; D64.9 Anemia, unspecified; F12.90 Cannabis use, unspecified, uncomplicated; I25.10 Atherosclerotic heart disease of native coronary artery without angina pectoris; K21.0 Gastro-esophageal reflux disease with esophagitis; K64.8 Other hemorrhoids; F41.9 Anxiety disorder, unspecified; D72.829 Elevated white blood cell count, unspecified; K52.9 Noninfective gastroenteritis and colitis, unspecified; Z72.0 Tobacco use; Z79.51 Long term (current) use of inhaled steroids; Z79.83 Long term (current) use of bisphosphonates; Z82.49 Family history of ischemic heart disease and other diseases of the circulatory system; Z79.899 Other long term (current) drug therapy; Z83.3 Family history of diabetes mellitus; Z79.52 Long term (current) use of systemic steroids; Z87.442 Personal history of urinary calculi; Z88.1 Allergy status to other antibiotic agents; Z88.8 Allergy status to other drugs, medicaments and biological substances
CPT/HCPCS: 36415; 71045; 80048; 80053; 80307; 81001; 83605; 83735; 83880; 84484; 85007; 85027; 85379; 85610; 85730; 87040; 87077; 87186; 94640; 96365; 96375; G0378; J2185; J3490; J7517